=== PATIENT | female | born 1930 | race Caucasian/White ===

== ENCOUNTER 2016-11-30 13:09 | Emergency (ER) | payer OTHER, MEDICARE ==
[2016-11-30 13:26] VITALS: BMI 21.1
--- NOTE | 2016-11-30 13:33 | PDOC ---
Attending Attestation - Resident Resident Name: Asia Mariee - ED Attending Attestation I have performed the following: I have examined & evaluated the patient, The case was reviewed & discussed with the resident, I agree w/resident's findings & plan, Exceptions are as noted - HPI HPI: 11/30/16 13:30 Fell and hit head 11/30/16 13:32 - Physicial Exam PE: 11/30/16 13:31 Mechanical fall, hit head 11/30/16 13:32 11/30/16 13:32 VSS/ A/Ox3, No Lac - Medical Decision Making 11/30/16 13:[address] Mariee's Assessment and Plan
[2016-11-30 14:50] LABS: BASOPHIL 0.6 % (0-2.0); EOSINOPHIL 1.4 % (0-4.5); MCH 29.7 pg (25.7-33.7); MCHC 33.2 g/dl (32.0-36.0); MEAN CELL VOLUME 89.4 fl (80-96); MEAN PLT VOLUME 9.7 fl (7.5-11.1); NEUTROPHILS 81.8 % (42.8-82.8); PLATELET COUNT 264 K/MM3 (134-434); RDW 14.1 % (11.6-15.6); WHITE BLOOD COUNT 10.8 K/mm3 (4.0-10.0)
[2016-11-30 15:05] LABS: ALBUMIN 3.4 g/dl (3.4-5.0); ALK PHOS 78 U/L (45-117); ANION GAP 8 (8-16); BILIRUBIN,TOTAL 0.8 mg/dL (0.2-1.0); CALCIUM 8.9 mg/dL (8.5-10.1); CO2 28 mmol/L (21-32); CREATININE 0.6 mg/dL (0.55-1.02); GLUCOSE,RANDOM 76 mg/dL (74-106); SGOT/AST 15 U/L (15-37); SGPT/ALT 17 U/L (12-78)
--- NOTE | 2016-11-30 15:08 | PDOC ---
History of Present Illness - General Chief Complaint: Head/Neck problem Stated Complaint: INJURY TO HEAD Time Seen by Provider: 11/30/16 13:17 History Source: Patient Exam Limitations: No Limitations - History of Present Illness Initial Comments: 86yo F with PMH htn, arthritis presents s/p fall. Pt lives in [facility] where she tripped on her clothing rack at 11am, fell and hit her head on the floor. - LOC. Pt does not take any blood thinning medications. Pt also c/o pain to her Right wrist and archie hips. Pt denies fever , palpitations, SOB. 11/30/16 14:47 Aspirin Received prior to arrival: Yes: no aspirin today Past History - Past Medical History Allergies/Adverse Reactions: Allergies Allergy/AdvReac Type Severity Reaction Status Date / Time Sulfa (Sulfonamide Allergy Verified 11/30/16 13:38 Antibiotics) Home Medications: Ambulatory Orders Acetaminophen [Mapap] 500 mg PO DAILY PRN 11/30/16 Duloxetine HCl [Cymbalta] 60 mg PO HS 11/30/16 Fluticasone/Salmeterol [Advair Hfa 230-21 Mcg Inhaler] 1 inh PO DAILY 11/30/16 Levothyroxine [Synthroid -] 150 mcg PO DAILY 11/30/16 Lisinopril 5 mg PO DAILY 11/30/16 Mirabegron [Myrbetriq] 50 mg PO DAILY 11/30/16 Mirtazapine 7.5 mg PO HS 11/30/16 Montelukast Na [Singulair -] 10 mg PO HS 11/30/16 Nystatin Ointment [Mycostatin Ointment -] 1 applic TP Q6H 11/30/16 Asthma: Yes Disorders: Yes (overactive bladder) HTN: Yes Psychiatric Problems: Yes (depression) Thyroid Disease: Yes - Surgical History Lung Surgery: Yes (partial lung lobectomy) Orthopedic Surgery: Yes (archie hip replacements) Other Surgical History: thyroidectomy, L4/5 spine surgery, carpal tunnel surgery 11/30/16 15:11 - Psycho/Social/Smoking Cessation Hx Suicidal Ideation: No Smoking History: Never smoked Information on smoking cessation initiated: No Hx Alcohol Use: No Drug/Substance Use Hx: No Substance Use Type: None Review of Systems - Review of Systems Able to Perform ROS?: Yes Is the patient limited Arabic proficient: No Constitutional: No: Chills, Diaphoresis, Fever HEENTM: No: Recent change in vision, Ear Pain, Nose Pain, Throat Pain Respiratory: No: Cough, Shortness of Breath, Stridor, Wheezing, Hemoptysis Cardiac (ROS): No: Chest Pain, Edema, Irregular Heart Rate, Lightheadedness, Palpitations, Syncope, Chest Tightness ABD/GI: Yes: Nausea (pt reports this may be becuase she hasn't eaten breakfast or lunch yet today). No: Abdominal Distended, Constipated, Diarrhea, Rectal Bleeding, Vomiting, Abdominal cramping : No: Burning, Dysuria, Hematuria Musculoskeletal: Yes: Joint Pain (archie hips and Right wrist pain onset after fall ). No: Back Pain, Muscle Pain, Neck Pain Integumentary: No: Erythema, Lesions, Rash Neurological: No: Headache, Weakness, Dizziness *Physical Exam - Vital Signs Last Vital Signs Temp Pulse Resp BP Pulse Ox 98 F 65 18 156/73 98 11/30/16 13:23 11/30/16 13:23 11/30/16 13:23 11/30/16 13:23 11/30/16 13:39 - Physical Exam General Appearance: Yes: Nourished, Appropriately Dressed. No: Apparent Distress HEENT: positive: EOMI, Normal Voice, Other (moist mucous membranes). negative: Pale Conjunctivae, Scleral Icterus (R), Scleral Icterus (L) Neck: positive: Trachea midline, Supple Respiratory/Chest: positive: Lungs Clear, Normal Breath Sounds. negative: Respiratory Distress, Accessory Muscle Use Cardiovascular: positive: Regular Rhythm, Regular Rate, S1, S2. negative: Murmur Gastrointestinal/Abdominal: positive: Soft. negative: Distended, Guarding, Rebound, Tenderness Extremity: negative: Swelling, Calf Tenderness, Erythema Integumentary: positive: Dry, Warm. negative: Rash Neurologic: positive: Alert, Normal Mood/Affect, Normal Response ED Treatment Course - LABORATORY CBC & Chemistry Diagram: 11/30/16 14:02 11/30/16 14:02 - RADIOLOGY Radiology Studies Ordered: Category Date Time Status HEAD CT WITHOUT CONTRAST [CT] Stat CT Scan 11/30/16 13:52 Ordered HIP-LEFT [RAD] Stat Radiology 11/30/16 13:52 Completed HIP-RIGHT [RAD] Stat Radiology 11/30/16 13:52 Completed WRIST W/HAND-RIGHT* [RAD] Stat Radiology 11/30/16 13:52 Completed Medical Decision Making - Medical Decision Making 86yo F with PMH htn, arthritis presents s/p fall. Pt lives in [facility] where she tripped on her clothing rack at 11am, fell and hit her head on the floor. -LOC Pt not taking any blood thinning medications. Pt also c/o pain to her Right wrist and archie hips. EKG - reveals RBBB, Left axis deviation, sinus rhythm with premature atrial complexes archie Hip XRays - reveal s/p archie hip replacements in satisfactory alignment without gross evidence of fx. Right Wrist XRay - reveals significant osteopenia with sig osteoarthritic changes to distal IPJs of 2nd-5th fingers & 1st carpo-metacarpal joint. Head CT non-contrast - reveals no acute intracranial hemorrhage or skull fx. CBC with diff and CMP unremarkable 11/30/16 15:29 11/30/16 15:38 Pt can go home. *DC/Admit/Observation/Transfer Diagnosis at time of Disposition: Fall - Discharge Dispostion Disposition: HOME Condition at time of disposition: Stable Admit: No - Patient Instructions Printed Discharge Instructions: How to Prevent Falls
--- NOTE | 2016-11-30 15:32 | EKG ---
Test Reason : Blood Pressure : / mmHG Vent. Rate : 067 BPM Atrial Rate : 067 BPM P-R Int : 152 ms QRS Dur : 122 ms QT Int : 432 ms P-R-T Axes : 038 -31 017 degrees QTc Int : 456 ms SINUS RHYTHM WITH PREMATURE ATRIAL COMPLEXES LEFT AXIS DEVIATION RIGHT BUNDLE BRANCH BLOCK ABNORMAL ECG NO PREVIOUS ECGS AVAILABLE Confirmed by MARIANO GREGORY MD ([id number]) on 11/30/2016 3:32:14 PM Referred By: Confirmed By:MARIANO GREGORY MD
[2016-11-30 17:44] VITALS: BP 139/89; PULSE 89; TEMP 98.1
== END 2016-11-30 17:45 | disposition home or self-care (01) ==
LOC: JER 13:09
DX: S09.8XXA Other specified injuries of head, initial encounter (principal); W01.198A Fall on same level from slipping, tripping and stumbling with subsequent striking against other object, initial encounter; Y93.89 Activity, other specified; Y92.092 Bedroom in other non-institutional residence as the place of occurrence of the external cause
CPT/HCPCS: 36415; 70450-TC; 73110-TC-RT; 73130-TC-RT; 73502-TC-LT; 73502-TC-RT; 80053; 85025; 93005; 93010; 99284-25

== ENCOUNTER 2017-04-30 01:40 | Inpatient (IN) | payer OTHER, MEDICARE ==
--- NOTE | 2017-04-30 02:13 | PDOC ---
History of Present Illness - General Chief Complaint: Injury Stated Complaint: PAIN, FALL 2 DAYS AGO Time Seen by Provider: 04/30/17 02:13 Past History - Past Medical History Allergies/Adverse Reactions: Allergies Allergy/AdvReac Type Severity Reaction Status Date / Time Sulfa (Sulfonamide Allergy Verified 04/30/17 02:02 Antibiotics) Home Medications: Ambulatory Orders Acetaminophen [Mapap] 500 mg PO DAILY PRN 11/30/16 Duloxetine HCl [Cymbalta] 60 mg PO HS 11/30/16 Fluticasone/Salmeterol [Advair Hfa 230-21 Mcg Inhaler] 1 inh PO DAILY 11/30/16 Levothyroxine [Synthroid -] 150 mcg PO DAILY 11/30/16 Lisinopril 5 mg PO DAILY 11/30/16 Mirabegron [Myrbetriq] 50 mg PO DAILY 11/30/16 Mirtazapine 7.5 mg PO HS 11/30/16 Montelukast Na [Singulair -] 10 mg PO HS 11/30/16 Nystatin Ointment [Mycostatin Ointment -] 1 applic TP Q6H 11/30/16 Asthma: Yes Disorders: Yes (overactive bladder) HTN: Yes Psychiatric Problems: Yes (depression) Thyroid Disease: Yes - Surgical History Lung Surgery: Yes (partial lung lobectomy) Orthopedic Surgery: Yes (archie hip replacements) - Suicide/Smoking/Psychosocial Hx Smoking History: Never smoked Have you smoked in the past 12 months: No Information on smoking cessation initiated: No Hx Alcohol Use: No Drug/Substance Use Hx: No Substance Use Type: None *Physical Exam - Vital Signs Last Vital Signs Temp Pulse Resp BP Pulse Ox 97.9 F 88 20 168/90 88 L 04/30/17 02:02 04/30/17 02:02 04/30/17 02:02 04/30/17 02:02 04/30/17 02:02 ED Treatment Course - LABORATORY CBC & Chemistry Diagram: 04/30/17 02:53 04/30/17 05:40 Medical Decision Making - Medical Decision Making 04/30/17 04:23 Pt comes with fever. WBC is 18.5; she is febrile; pulsox is low. Pt may have a pneumonia. Flu test negative. 04/30/17 04:25 Troponis normal; chem is hemolyzed, We will redraw. 04/30/17 04:52 Patient Name: SHANNON JC THIS IS A PRELIMINARY REPORT FROM [facility] DATE OF SERVICE: 2017-04-30 03:27:47 IMAGES: 104 EXAM: CHEST CT WITHOUT CONTRAST HISTORY: Pneumonia COMPARISON: None. FINDINGS: Heart:: Normal Pericardium: not thickened Thoracic aorta and great vessels: Normal Superior vena cava and inferior vena cava: Normal Pulmonary arteries: Normal Thoracic esophagus: Normal Mediastinal lymph nodes: Normal Central airways: Normal Lungs: There is some focal airspace consolidation in the lower lobes bilaterally right greater than left. There is some focal subpleural consolidation in the right upper lobe adjacent to a thoracotomy rib defect. This density measures 1.4 x 2.8 x 2.6 cm Pleural spaces: Normal with no pneumothorax or pleural fluid Chest wall: Normal Superior abdomen: Normal IMPRESSION: Air space opacity in the right lower lobe suggests aspiration or pneumonia. Subpleural nodular density adjacent to a thoracotomy defect may reflect scarring , or residual/recurrent neoplasm in the right upper lobe. Correlation with history and comparison with previous studies is recommended *DC/Admit/Observation/Transfer Diagnosis at time of Disposition: Aspiration pneumonia - Discharge Dispostion Condition at time of disposition: Guarded Admit: Yes - Referrals - Patient Instructions - Post Discharge Activity Attending Attestation - Resident Resident Name: Tatiana Tripp - ED Attending Attestation I have performed the following: I have examined & evaluated the patient, The case was reviewed & discussed with the resident, I agree w/resident's findings & plan - HPI HPI: 04/30/17 05:02 Pt comes with fever and wet productive cough and low pulsox. - Physicial Exam PE: 04/30/17 05:02 Agree with resident exam - Medical Decision Making 04/30/17 05:02 Admit to the hospitalist med/surg flood for aspiration pneumonia and hypoxemia, cough and dizziness
[2017-04-30] MEDS ORDERED: LACTATED RINGERS SOLUTION 1000 ML INFUS.BAG IV ONE (02:21)
[2017-04-30 03:32] LABS: VENOUS PH 7.34 (7.32-7.42)
[2017-04-30 03:33] LABS: BASO % 0.4 % (0-2.0); EOS % 0.1 % (0-4.5); HEMATOCRIT 39.7 % (32.4-45.2); HEMOGLOBIN 12.9 GM/dL (10.7-15.3); MCHC 32.6 g/dl (32.0-36.0); MEAN CELL VOLUME 88.9 fl (80-96); MEAN PLT VOLUME 9.1 fl (7.5-11.1); MONO % 5.8 % (3.8-10.2); NEUT % 89.7 % (42.8-82.8); PLATELET COUNT 258 K/MM3 (134-434); RBC 4.46 M/mm3 (3.60-5.2); RDW 13.7 % (11.6-15.6); VENOUS PC02 46.9 mmHg (38-52); WHITE BLOOD COUNT 18.5 K/mm3 (4.0-10.0)
[2017-04-30 04:01] LABS: INR 1.04 (0.82-1.09); PROTHROMBIN TIME (PATIENT) 11.7 SEC (9.98-11.88)
[2017-04-30 04:04] LABS: ACTIVATED PTT 33.2 SECONDS (26.9-34.4)
[2017-04-30] MEDS ORDERED: PIPERACILLIN/TAZOB 3.375 GM 50 ML IVPB ONE (04:53)
[2017-04-30] MEDS ORDERED: PIPERACILLIN/TAZOB 3.375 GM 3.375 GM/50 ML BAG IVPB ONE (04:57)
[2017-04-30 05:28] LABS: URINE APPEARANCE CLEAR; URINE BILIRUBIN NEGATIVE (NEGATIVE); URINE BLOOD NEGATIVE (NEGATIVE); URINE COLOR YELLOW; URINE GLUCOSE (UA) NEGATIVE (NEGATIVE); URINE KETONE NEGATIVE (NEGATIVE); URINE LEUK ESTERASE NEGATIVE (NEGATIVE); URINE NITRITE NEGATIVE (NEGATIVE); URINE PROTEIN NEGATIVE (NEGATIVE); URINE UROBILINOGEN NEGATIVE mg/dL (0.2-1.0)
[2017-04-30 06:19] LABS: ALBUMIN 2.9 g/dl (3.4-5.0); ALK PHOS 110 U/L (45-117); ANION GAP 8 (8-16); BLOOD UREA NITROGEN 16 mg/dL (7-18); CHLORIDE 101 mmol/L (98-107); CO2 27 mmol/L (21-32); CREATININE 0.8 mg/dL (0.55-1.02); GLUCOSE,RANDOM 120 mg/dL (74-106); POTASSIUM 4.1 mmol/L (3.5-5.1); SGOT/AST 37 U/L (15-37); SGPT/ALT 23 U/L (12-78); SODIUM 136 mmol/L (136-145); TOT PROT 6.5 g/dl (6.4-8.2)
--- NOTE | 2017-04-30 08:17 | HP ---
CHIEF COMPLAINT: "Im sick and coughing" PCP: Dr Little HISTORY OF PRESENT ILLNESS: This is an 87 yo F [facility] resident, with PMH of COPD, R lung resection, HTN, archie hip replacements, hypothyroidism, depression, overactive bladder, who resents due to worsening cough. Patient states she has many sick contacts and as a result developed cough 2 weeks ago, productive of green sputum, that was initially preceded by rhinorrhea. Her cough has not improved despite a course of PO abx. She denies associated f/c, sob or sore thorat but reports fatigue. She states that NH lost her dentures and becca ones she is wearing now are not made for chewing; as a result she has not been able to eat solid food for 2 months and has lost 20 lb. She states that she fell on her R leg/hip 2 days ago , which still hurts, and has not tried walking since. She reports one episode on PNA in her youth but none since. She denies CP, h/a, abd pain, n/v, diarrhea , constipation, dysuria. 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 smoker Alcohol: denies Drugs: denies Family History: noncontributory Allergies Sulfa (Sulfonamide Antibiotics) Allergy (Verified 04/30/17 02:02) Penicillin HOME MEDICATIONS: Home Medications Medication Instructions Recorded Acetaminophen 500 mg PO PRN 04/30/17 Duloxetine HCl [Cymbalta] 60 mg PO DAILY 04/30/17 Fluticasone/Salmeterol [Advair Hfa 1 inh PO BID 04/30/17 230-21 Mcg Inhaler] Hypromellose 0.5% Opth Soln 1 drop OU DAILY 04/30/17 [Artificial Tears] Levothyroxine [Synthroid -] 150 mcg PO DAILY 04/30/17 Lisinopril 5 mg PO DAILY 04/30/17 Mirabegron [Myrbetriq] 50 mg PO DAILY 04/30/17 Mirtazapine [Remeron -] 7.5 mg PO DAILY 04/30/17 Montelukast Sodium [Singulair] 10 mg PO DAILY 04/30/17 Nystatin Cream [Mycostatin Cream -] 1 applic TP PRN 04/30/17 REVIEW OF SYSTEMS CONSTITUTIONAL: Absent: fever, chills, loss of appetite HEENT: Absent: rhinorrhea, nasal congestion CARDIOVASCULAR: Absent: chest pain, syncope, palpitations, irregular heart rate, lightheadedness , peripheral edema RESPIRATORY: Absent: shortness of breath, orthopnea, stridor, hemoptysis GASTROINTESTINAL: Absent: abdominal pain, abdominal distension, nausea, vomiting, diarrhea, constipation, melena, hematochezia GENITOURINARY: Absent: dysuria MUSCULOSKELETAL: Absent: myalgia, joint swelling, back pain, neck pain SKIN: Absent: rash, itching, pallor HEMATOLOGIC/IMMUNOLOGIC: Absent: frequent infections ENDOCRINE: Absent: heat intolerance, cold intolerance NEUROLOGIC: Absent: headache, focal weakness or paresthesias PSYCHIATRIC: Absent: anxiety, depression PHYSICAL EXAMINATION Vital Signs - 24 hr 04/30/17 04/30/17 04/30/17 02:02 06:52 07:04 Temperature 97.9 F 99.0 F Pulse Rate 88 Pulse Rate [ 95 H 80 Right Apical] Respiratory 20 16 18 Rate Blood Pressure 168/90 Blood Pressure 165/68 163/60 [Right Arm] O2 Sat by Pulse 88 L 94 L 99 Oximetry (%) 04/30/17 07:09 Temperature Pulse Rate Pulse Rate [ Right Apical] Respiratory Rate Blood Pressure Blood Pressure [Right Arm] O2 Sat by Pulse 98 Oximetry (%) GENERAL: Awake, alert, and fully oriented, in no acute distress. HEAD: Normal with no signs of trauma. EYES: Pupils equal, round and reactive to light, extraocular movements intact, sclera anicteric, conjunctiva clear. No lid lag. EARS, NOSE, THROAT: dry mucous membranes. NECK: supple LUNGS: diffuse ronchi, wet cough HEART: Regular rate and rhythm, normal S1 and S2 ABDOMEN: thin, Soft, nontender, not distended, normoactive bowel sounds, no guarding, no rebound, no masses. MUSCULOSKELETAL: No CVA tenderness. UPPER EXTREMITIES: 2+ pulses, warm, well-perfused. No cyanosis. No clubbing. No peripheral edema. LOWER EXTREMITIES: 1+ pulses, warm, well-perfused. No calf tenderness. 1+ peripheral edema. R lateral thigh pain NEUROLOGICAL: Cranial nerves II-XII grossly intact. Normal speech. PSYCHIATRIC: Cooperative. Good eye contact. Appropriate mood and affect. SKIN: Warm, dry Laboratory Results - last 24 hr 04/30/17 04/30/17 04/30/17 02:53 02:53 02:53 WBC 18.5 H D RBC 4.46 Hgb 12.9 Hct 39.7 MCV 88.9 MCH 29.0 MCHC 32.6 RDW 13.7 Plt Count 258 MPV 9.1 Neutrophils % 89.7 H Lymphocytes % 4.0 L D Monocytes % 5.8 Eosinophils % 0.1 D Basophils % 0.4 PT with INR 11.70 INR 1.04 PTT (Actin FS) 33.2 VBG pH POC VBG pCO2 POC VBG pO2 Mixed VBG HCO3 Sodium Cancelled Potassium Cancelled Chloride Cancelled Carbon Dioxide Cancelled Anion Gap Cancelled BUN Cancelled Creatinine Cancelled Creat Clearance w eGFR Cancelled Random Glucose Cancelled Lactic Acid Calcium Cancelled Total Bilirubin Cancelled AST Cancelled ALT Cancelled Alkaline Phosphatase Cancelled Creatine Kinase Cancelled Troponin I Cancelled Total Protein Cancelled Albumin Cancelled Urine Color Urine Appearance Urine pH Ur Specific [place] Urine Protein Urine Glucose (UA) Urine Ketones Urine Blood Urine Nitrite Urine Bilirubin Urine Urobilinogen Ur Leukocyte Esterase Blood Type Antibody Screen 04/30/17 04/30/17 04/30/17 02:53 02:53 02:53 WBC RBC Hgb Hct MCV MCH MCHC RDW Plt Count MPV Neutrophils % Lymphocytes % Monocytes % Eosinophils % Basophils % PT with INR INR PTT (Actin FS) VBG pH 7.34 POC VBG pCO2 46.9 POC VBG pO2 34.0 Mixed VBG HCO3 24.5 Sodium Potassium Chloride Carbon Dioxide Anion Gap BUN Creatinine Creat Clearance w eGFR Random Glucose Lactic Acid 1.4 Calcium Total Bilirubin AST ALT Alkaline Phosphatase Creatine Kinase 91 Troponin I < 0.02 Total Protein Albumin Urine Color Urine Appearance Urine pH Ur Specific [place] Urine Protein Urine Glucose (UA) Urine Ketones Urine Blood Urine Nitrite Urine Bilirubin Urine Urobilinogen Ur Leukocyte Esterase Blood Type Antibody Screen 04/30/17 04/30/17 04/30/17 02:53 05:00 05:40 WBC RBC Hgb Hct MCV MCH MCHC RDW Plt Count MPV Neutrophils % Lymphocytes % Monocytes % Eosinophils % Basophils % PT with INR INR PTT (Actin FS) VBG pH POC VBG pCO2 POC VBG pO2 Mixed VBG HCO3 Sodium 136 Potassium 4.1 Chloride 101 Carbon Dioxide 27 Anion Gap 8 BUN 16 Creatinine 0.8 Creat Clearance w eGFR > 60 Random Glucose 120 H Lactic Acid Calcium 8.0 L Total Bilirubin 1.0 D AST 37 ALT 23 Alkaline Phosphatase 110 Creatine Kinase Troponin I Total Protein 6.5 Albumin 2.9 L Urine Color Yellow Urine Appearance Clear Urine pH 5.0 Ur Specific [place] 1.018 Urine Protein Negative Urine Glucose (UA) Negative Urine Ketones Negative Urine Blood Negative Urine Nitrite Negative Urine Bilirubin Negative Urine Urobilinogen Negative Ur Leukocyte Esterase Negative Blood Type Cancelled Antibody Screen Cancelled ASSESSMENT/PLAN: This is an 87 yo F [place] resident, with PMH of COPD, R lung resection, HTN, archie hip replacements, hypothyroidism, depression, overactive bladder, who resents due to worsening cough. COPD Exacerbation -possible underlying HCAP (RLL infiltate on Chest CT, R upper lobe peripleural scarring s/p resection) -flu negative -rocephin, azithormycin daily -medrol 40 iv bid -symbicort, spiriva, dupnebs -incentive spirometer -PT s/p Fall -thigh pain -R hip, femur, knee x ray HTN -resume lisinopril Hypothyroidism -resume synthroid depression -resume remeron, cymbalta Overactive bladder -resume mirabegron Weight loss -unable to chew -speech/swallow eval -puree diet FEN PO hydration lytes stable na restricted puree diet with nutritional supplement Dispo: admit m/s Problem List - Problem (1) COPD exacerbation Code(s): J44.1 - CHRONIC OBSTRUCTIVE PULMONARY DISEASE W (ACUTE) EXACERBATION (2) HTN (hypertension) Code(s): I10 - ESSENTIAL (PRIMARY) HYPERTENSION (3) Hypothyroid Code(s): E03.9 - HYPOTHYROIDISM, UNSPECIFIED (4) Overactive bladder Code(s): N32.81 - OVERACTIVE BLADDER (5) Depression Code(s): F32.9 - MAJOR DEPRESSIVE DISORDER, SINGLE EPISODE, UNSPECIFIED (6) Fall Code(s): W19.XXXA - UNSPECIFIED FALL, INITIAL ENCOUNTER (7) Weight loss Code(s): R63.4 - ABNORMAL WEIGHT LOSS Visit type - Emergency Visit Emergency Visit: Yes ED Registration Date: 02/05/18 Care time: The patient presented to the Emergency Department on the above date and was hospitalized for further evaluation of their emergent condition. - New Patient This patient is new to me today: Yes Date on this admission: 04/30/17 - Critical Care Critical Care patient: No
[2017-04-30] MEDS ORDERED: ARTIFICIAL TEARS (POLYVINYL ALCOHOL 1.4%) OPTH DROPS OU PRN (09:51)
[2017-04-30] MEDS ORDERED: MIRTAZAPINE 15 MG TABLET (FP) PO SCH (10:00)
[2017-04-30] MEDS ORDERED: ACETAMINOPHEN 500 MG TABLET (FP) PO SCH (10:00)
[2017-04-30] MEDS ORDERED: NYSTATIN 100,000 UNIT/GM TOPICAL CREAM 15 GM TUBE TP SCH (10:00)
[2017-04-30] MEDS: CEFTRIAXONE 1 G/50 ML PREMIX 50 ML IVPB SCH (11:58)
[2017-04-30] MEDS: DULoxetine HCL 30 MG CAPSULE.DR (FP) PO SCH (11:58)
[2017-04-30] MEDS: OXYBUTYNIN CHLORIDE 5 MG TABLET PO SCH ×2 (11:59→21:44)
[2017-04-30] MEDS: LEVOTHYROXINE NA 150 MCG TABLET PO SCH (11:59)
[2017-04-30] MEDS: methylPREDNISolone NA SUCC 40 MG/1 ML VIAL IVPUSH SCH ×2 (11:59→21:45)
[2017-04-30] MEDS: LISINOPRIL 5 MG TABLET (FP) PO SCH (11:59)
[2017-04-30] MEDS: HEPARIN NA (PORCINE) 5,000 UNITS/ML 1ML VIAL SQ SCH ×2 (11:59→21:44)
[2017-04-30] MEDS ORDERED: cefTRIAXone 1 GM/50 ML BAG (PRE-DOCKED) IVPB SCH (12:00)
[2017-04-30] MEDS: BUDESONIDE/FORMETEROL FUMARATE 160/4.5 mcg INHALER IH SCH ×2 (12:24→21:45)
[2017-04-30] MEDS: TIOTROPIUM BROMIDE 18 MCG/INH (DEVICE W/ 5 CAPSULES) IH SCH (12:24)
--- NOTE | 2017-04-30 12:42 | EKG ---
Test Reason : Blood Pressure : / mmHG Vent. Rate : 106 BPM Atrial Rate : 106 BPM P-R Int : 132 ms QRS Dur : 120 ms QT Int : 356 ms P-R-T Axes : 053 -54 042 degrees QTc Int : 472 ms SINUS TACHYCARDIA POSSIBLE LEFT ATRIAL ENLARGEMENT RIGHT BUNDLE BRANCH BLOCK LEFT ANTERIOR FASCICULAR BLOCK BIFASCICULAR BLOCK ABNORMAL ECG WHEN COMPARED WITH ECG OF 30-NOV-2016 13:42, PREMATURE ATRIAL COMPLEXES ARE NO LONGER PRESENT VENT. RATE HAS INCREASED BY 39 BPM Confirmed by GUILLERMINA RO, NELLI ([id number]) on 04/30/2017 12:42:30 PM Referred By: Confirmed By:NELLI SARMIENTO MD
[2017-04-30] MEDS ORDERED: ACETAMINOPHEN 500 MG TABLET (FP) PO PRN (12:44)
[2017-04-30] MEDS ORDERED: NYSTATIN 100,000 UNIT/GM TOPICAL CREAM 15 GM TUBE TP PRN ×2 (12:45→15:28)
--- NOTE | 2017-04-30 12:53 | PN ---
Teaching Attending Note Name of Resident: Kajal Gannon ATTENDING PHYSICIAN STATEMENT I saw and evaluated the patient. I reviewed the resident's note and discussed the case with the resident. I agree with the resident's findings and plan as documented. SUBJECTIVE: This is an 87 year old woman, resident of [facility], with a history of COPD, HTN, hypothyroidism, depression, overactive bladder, bilateral hip replacements, right lung surgery who comes to the ED complaining of worsening cough. She has had a cough with green sputum for about 2 weeks. She was treated with oral antibiotics without improvement. She denies fever, chills, SOB. She has been feeling tired. She has not been able to eat solid food because of a problem with her dentures and has lost 20 lbs over the last 2 months. OBJECTIVE: Vital Signs Period Temp Pulse Resp BP Sys/Richardson Pulse Ox Last 24 Hr 97.9 F-100.7 F 80-98 16-20 160-168/60-90 88-99 HEART: S1S2, RRR LUNGS: Scattered rhonchi and wheezes ABDOMEN: Soft, non-tender, non-distended, normal BS EXTREMITIES: Trace edema Laboratory Tests 04/30/17 04/30/17 04/30/17 02:53 02:53 02:53 WBC 18.5 H D RBC 4.46 Hgb 12.9 Hct 39.7 MCV 88.9 MCH 29.0 MCHC 32.6 RDW 13.7 Plt Count 258 MPV 9.1 Neutrophils % 89.7 H Lymphocytes % 4.0 L D Monocytes % 5.8 Eosinophils % 0.1 D Basophils % 0.4 PT with INR 11.70 INR 1.04 PTT (Actin FS) 33.2 VBG pH POC VBG pCO2 POC VBG pO2 Mixed VBG HCO3 Sodium Cancelled Potassium Cancelled Chloride Cancelled Carbon Dioxide Cancelled Anion Gap Cancelled BUN Cancelled Creatinine Cancelled Creat Clearance w eGFR Cancelled Random Glucose Cancelled Lactic Acid Calcium Cancelled Total Bilirubin Cancelled AST Cancelled ALT Cancelled Alkaline Phosphatase Cancelled Creatine Kinase Cancelled Troponin I Cancelled Total Protein Cancelled Albumin Cancelled Urine Color Urine Appearance Urine pH Ur Specific [place] Urine Protein Urine Glucose (UA) Urine Ketones Urine Blood Urine Nitrite Urine Bilirubin Urine Urobilinogen Ur Leukocyte Esterase Blood Type Antibody Screen 04/30/17 04/30/17 04/30/17 02:53 02:53 02:53 WBC RBC Hgb Hct MCV MCH MCHC RDW Plt Count MPV Neutrophils % Lymphocytes % Monocytes % Eosinophils % Basophils % PT with INR INR PTT (Actin FS) VBG pH 7.34 POC VBG pCO2 46.9 POC VBG pO2 34.0 Mixed VBG HCO3 24.5 Sodium Potassium Chloride Carbon Dioxide Anion Gap BUN Creatinine Creat Clearance w eGFR Random Glucose Lactic Acid 1.4 Calcium Total Bilirubin AST ALT Alkaline Phosphatase Creatine Kinase 91 Troponin I < 0.02 Total Protein Albumin Urine Color Urine Appearance Urine pH Ur Specific [place] Urine Protein Urine Glucose (UA) Urine Ketones Urine Blood Urine Nitrite Urine Bilirubin Urine Urobilinogen Ur Leukocyte Esterase Blood Type Antibody Screen 04/30/17 04/30/17 04/30/17 02:53 05:00 05:40 WBC RBC Hgb Hct MCV MCH MCHC RDW Plt Count MPV Neutrophils % Lymphocytes % Monocytes % Eosinophils % Basophils % PT with INR INR PTT (Actin FS) VBG pH POC VBG pCO2 POC VBG pO2 Mixed VBG HCO3 Sodium 136 Potassium 4.1 Chloride 101 Carbon Dioxide 27 Anion Gap 8 BUN 16 Creatinine 0.8 Creat Clearance w eGFR > 60 Random Glucose 120 H Lactic Acid Calcium 8.0 L Total Bilirubin 1.0 D AST 37 ALT 23 Alkaline Phosphatase 110 Creatine Kinase Troponin I Total Protein 6.5 Albumin 2.9 L Urine Color Yellow Urine Appearance Clear Urine pH 5.0 Ur Specific [place] 1.018 Urine Protein Negative Urine Glucose (UA) Negative Urine Ketones Negative Urine Blood Negative Urine Nitrite Negative Urine Bilirubin Negative Urine Urobilinogen Negative Ur Leukocyte Esterase Negative Blood Type Cancelled Antibody Screen Cancelled Home Medications Medication Instructions Recorded Acetaminophen 500 mg PO PRN 04/30/17 Duloxetine HCl [Cymbalta] 60 mg PO DAILY 04/30/17 Fluticasone/Salmeterol [Advair Hfa 1 inh PO BID 04/30/17 230-21 Mcg Inhaler] Hypromellose 0.5% Opth Soln 1 drop OU DAILY 04/30/17 [Artificial Tears] Levothyroxine [Synthroid -] 150 mcg PO DAILY 04/30/17 Lisinopril 5 mg PO DAILY 04/30/17 Mirabegron [Myrbetriq] 50 mg PO DAILY 04/30/17 Mirtazapine [Remeron -] 7.5 mg PO DAILY 04/30/17 Montelukast Sodium [Singulair] 10 mg PO DAILY 04/30/17 Nystatin Cream [Mycostatin Cream -] 1 applic TP PRN 04/30/17 ASSESSMENT AND PLAN: This is an 87 year old woman with a history of COPD, HTN, hypothyroidism, depression, overactive bladder, bilateral hip replacements, right lung surgery who presented to the ED with cough productive of green sputum x 2 weeks. She did not improve after a course of oral antibiotics. She was found to have WBC 18.5 and O2 saturation 88% on RA. CXR showed RUL and RLL opacity, possibly pneumonia, possibly neoplasm. Chest CT shows focal wedge-shaped airspace disease /consolidation in RUL adjacent to old rib fracture vs thoracotomy defect. 1. Possible sepsis (WBC 18.5, HR 95) secondary to pneumonia - Failed oral antibiotics as outpatient - Start Rocephin, Zithromax - Given history of right lung surgery, CT findings, and recent weight loss, neoplasm needs to be ruled out - Pulmonary consult 2. Acute exacerbation of COPD - Start SoluMedrol, DuoNeb - Continue Singulair, Symbicort - Oxygen to maintain saturation > 90% 3. HTN - Continue Lisinopril 4. Hypothyroidsim - Continue Synthroid 5. Depression - Continue Remeron, Cymbalta 6. Overactive bladder - Continue Myrbetriq
[2017-04-30] MEDS: AZITHROMYCIN IVPB 500 MG in DEXTROSE 5%-WATER - 250 ML IVPB SCH (13:04)
--- NOTE | 2017-04-30 13:17 | CONSULT ---
Admitting History and Physical - Primary Care Physician PCP: Adolfo Reed - Admission History of Present Illness: Per emr: This is an 87 yo F [facility] resident, with PMH of COPD, R lung resection, HTN, archie hip replacements, hypothyroidism, depression, overactive bladder, who resents due to worsening cough. Patient states she has many sick contacts and as a result developed cough 2 weeks ago, productive of green sputum, that was initially preceded by rhinorrhea. Her cough has not improved despite a course of PO abx. She denies associated f/c, sob or sore thorat but reports fatigue. She states [facility] and becca ones she is wearing now are not made for chewing; as a result she has not been able to eat solid food for 2 months and has lost 20 lb. She states that she fell on her R leg/hip 2 days ago , which still hurts, and has not tried walking since. She reports one episode on PNA in her youth but none since. She denies CP, h/a, abd pain, n/v, diarrhea , constipation, dysuria. Pt reports weight loss, not eating x 2 weeks. She reports that [facility]. Upper dentures are ill fitting. She has "no appetite", and is "sweating." Selected Entries 04/30/17 04/30/17 04/30/17 02:02 07:04 08:30 Temperature 97.9 F 99.0 F 98.8 F 04/30/17 10:30 Temperature 100.7 F H Laboratory Tests 04/30/17 02:53 WBC 18.5 H D History Source: Patient, Medical Record Limitations to Obtaining History: No Limitations - Smoking History Smoking history: Never smoked Have you smoked in the past 12 months: No - Alcohol/Substance Use Hx Alcohol Use: No History - Admission Reason For Visit: ASPIRATION PNEUMONIA - Diagnostics X-ray: Report Reviewed ( Air space opacity in the right lower lobe suggests aspiration or pneumonia. Subpleural nodular density adjacent to a thoracotomy defect may reflect scarring, or residual/recurrent neoplasm in the right upper lobe. Correlation with history and comparison withprevious studies is recommended) - General Mental Status: Alert and Oriented, Awake and Alert, Able to Follow Commands Attention: Intact Ability to Follow Directions: Excellent Head/Neck Control: WFL - Hearing Hearing: Impaired Speech Evaluation - Communication Primary Language: [place] Communication: Yes: Within Normal Limits Oral Expression Ability: Yes: No Impairment - Speech Production Able to Make Needs Known: Yes: WNL Intelligibility: Yes: Mildly Impaired - Speech Characteristics Voice Loudness: Mildly Soft/Quiet Voice Pitch: Yes: Normal Voice Phonatory-based Quality: Yes: Dysphonia Speech Pattern: Normal Speech Clarity: < 100% Nasal Resonance: Normal Articulation: Yes: Precise - Language/Auditory Comprehension Follows: Yes: 1 Stage Simple Commands, 2 Stage Simple Commands - Language/Verbal Expression Able to Respond to Simple Queries: Yes: WNL Able to Communicate Wants and Needs: Yes: WNL Functional Communication Status: Yes: WNL - Swallow Evaluation/Bedside Assessment Current Nutritional Intake: Dysphagia Pureed, Thin Liquids Dentition: Yes: Edentulous (lower), Dental Appliance Upper (ill-fitting) Facial Symmetry at Rest: Symmetrical Facial Symmetry on Retraction: Symmetrical Facial Movement: Controlled Against Resistance Opening: Normal Against Resistance Closing: Normal Pucker Lips: Normal Smile: Normal Lingual Movement: Normal, Symmetric Lingual Movement Strgth Against Opposition: Normal Lingual Movement Characteristics: Normal Velopharyngeal Movement: Normal Laryngeal Movement: Able to Palpate (delayed but brisk) Rate of Intake: WFL Bolus Size: WFL Labial Seal: WFL Chewing: WFL Oral Prep Time: WFL A-P Transit: WFL Pocketing: None Timing of Swallow: Delayed Coughing/Throat Clear: Yes (thin liquid intermittently "it chokes me") Recommendations - Speech Evaluation, Impression/Plan Impression: Dysphonia. Cough response with thin liquid r/o aspiration. c/o sweating/no appetite - Disposition Discharge to: Group Home Facility - Dysphagia Impressions/Plan Dysphagia Impressions: Mild Impairment, Ongoing Evaluation, Suspect Aspiration *Silent aspiration: cannot be R/O at bedside Recommendations: Modified Barium Swallow - Recommendations Diet Consistency: Dysphagia Pureed Medication Administration: Crushed with applesauce Liquids: [place] Thick Supplement: Magic Cup, Ensure Pudding, Other (ensure compact)
[2017-04-30 16:12] VITALS: BMI 21.6
[2017-04-30] MEDS: ALBUTEROL SO4 2.5/IPRATROPIUM 0.5 INH SOL 3 ML VIAL.NEB. NEB PRN (18:05)
[2017-04-30] MEDS: MIRTAZAPINE 15 MG TABLET (FP) PO SCH (21:44)
[2017-05-01] MEDS: LEVOTHYROXINE NA 150 MCG TABLET PO SCH (06:18)
[2017-05-01 08:19] LABS: BASO % 0.1 % (0-2.0); HEMOGLOBIN 12.1 GM/dL (10.7-15.3); LYMPH % 4.3 % (8-40); MCH 28.5 pg (25.7-33.7); MCHC 31.9 g/dl (32.0-36.0); MEAN CELL VOLUME 89.4 fl (80-96); MEAN PLT VOLUME 8.9 fl (7.5-11.1); MONO % 1.6 % (3.8-10.2); PLATELET COUNT 243 K/MM3 (134-434); RBC 4.25 M/mm3 (3.60-5.2); WHITE BLOOD COUNT 12.8 K/mm3 (4.0-10.0)
[2017-05-01 08:32] LABS: ANION GAP 7 (8-16); BLOOD UREA NITROGEN 17 mg/dL (7-18); CALCIUM 8.1 mg/dL (8.5-10.1); CHLORIDE 101 mmol/L (98-107); CO2 29 mmol/L (21-32); CREATININE 0.7 mg/dL (0.55-1.02); GLUCOSE,RANDOM 128 mg/dL (74-106); PHOSPHOROUS 3.9 mg/dL (2.5-4.9); POTASSIUM 3.9 mmol/L (3.5-5.1); SODIUM 137 mmol/L (136-145)
[2017-05-01] MEDS: ALBUTEROL SO4 2.5/IPRATROPIUM 0.5 INH SOL 3 ML VIAL.NEB. NEB PRN (09:29)
[2017-05-01] MEDS ORDERED: PT OWN MED DRAWER 7, Y5N ONE ×2 (09:35→10:57)
[2017-05-01] MEDS: methylPREDNISolone NA SUCC 40 MG/1 ML VIAL IVPUSH SCH (11:34)
[2017-05-01] MEDS: CEFTRIAXONE 1 G/50 ML PREMIX 50 ML IVPB SCH (11:34)
[2017-05-01] MEDS: HEPARIN NA (PORCINE) 5,000 UNITS/ML 1ML VIAL SQ SCH ×2 (11:35→21:43)
[2017-05-01] MEDS: DULoxetine HCL 30 MG CAPSULE.DR (FP) PO SCH (11:37)
[2017-05-01] MEDS: LISINOPRIL 5 MG TABLET (FP) PO SCH (11:37)
[2017-05-01] MEDS: OXYBUTYNIN CHLORIDE 5 MG TABLET PO SCH ×2 (11:37→21:43)
[2017-05-01] MEDS: AZITHROMYCIN IVPB 500 MG in DEXTROSE 5%-WATER - 250 ML IVPB SCH (11:48)
[2017-05-01] MEDS: BUDESONIDE/FORMETEROL FUMARATE 160/4.5 mcg INHALER IH SCH ×2 (11:48→21:43)
[2017-05-01] MEDS: TIOTROPIUM BROMIDE 18 MCG/INH (DEVICE W/ 5 CAPSULES) IH SCH (11:49)
--- NOTE | 2017-05-01 11:50 | CON.PULM ---
Consult Consult Specialty:: PULMONARY Referred by:: Dr. Bhardwaj Reason for Consultation:: pneumonia, COPD - History of Present Illness Chief Complaint: cough History of Present Illness: 87yo female with h/o HTN, COPD, hypothyroidism, overactive bladder, depression, lung ca s/p resection 7 years ago without chemo/RT who presents with worsening cough. Cough productive of green sputum. Reports generalized weakness and some increased shortness of breath. Was started on oral antibiotics as an outpt without significant improvement. No nausea, vomiting or diarrhea. She was a heavy smoker until her lung cancer. - History Source History Provided By: Patient, Medical Record Limitations to Obtaining History: Poor Historian - Past Medical History Cardio/Vascular: Yes: HTN Pulmonary: Yes: Cancer, COPD Endocrine: Yes: Hypothyroidism - Alcohol/Substance Use Hx Alcohol Use: No - Smoking History Smoking history: Never smoked Have you smoked in the past 12 months: No If you are a former smoker, when did you quit?: 5 yrs ago Home Medications - Allergies Allergies/Adverse Reactions: Allergies Allergy/AdvReac Type Severity Reaction Status Date / Time Sulfa (Sulfonamide Allergy Verified 04/30/17 02:02 Antibiotics) Penicillins AdvReac Verified 04/30/17 09:56 - Home Medications Home Medications: Ambulatory Orders Acetaminophen 500 mg PO PRN 04/30/17 Duloxetine HCl [Cymbalta] 60 mg PO DAILY 04/30/17 Fluticasone/Salmeterol [Advair Hfa 230-21 Mcg Inhaler] 1 inh PO BID 04/30/17 Hypromellose 0.5% Opth Soln [Artificial Tears] 1 drop OU DAILY 04/30/17 Levothyroxine [Synthroid -] 150 mcg PO DAILY 04/30/17 Lisinopril 5 mg PO DAILY 04/30/17 Mirabegron [Myrbetriq] 50 mg PO DAILY 04/30/17 Mirtazapine [Remeron -] 7.5 mg PO DAILY 04/30/17 Montelukast Sodium [Singulair] 10 mg PO DAILY 04/30/17 Nystatin Cream [Mycostatin Cream -] 1 applic TP PRN 04/30/17 Review of Systems - Review of Systems Constitutional: reports: Chills, Fever, Weakness Eyes: denies: Recent Change in Vision HENT: denies: Nasal Congestion, Throat Pain Neck: denies: Stiffness, Tenderness Cardiovascular: reports: Shortness of Breath. denies: Chest Pain, Edema, Palpitations Respiratory: reports: Cough. denies: Hemoptysis, Wheezing Gastrointestinal: denies: Abdominal Pain, Diarrhea, Nausea, Vomiting Genitourinary: denies: Dysuria, Hematuria Neurological: denies: Dizziness, Headache Endocrine: denies: Unexplained Weight Gain, Unexplained Weight Loss Physical Exam Vital Sings: Vital Signs Temperature 97.3 F L 05/01/17 07:00 Pulse Rate 97 H 05/01/17 07:00 Respiratory Rate 20 05/01/17 07:00 Blood Pressure 150/74 05/01/17 07:00 O2 Sat by Pulse Oximetry (%) 95 04/30/17 21:00 Constitutional: Yes: Anxious Eyes: Yes: Conjunctiva Clear, EOM Intact HENT: Yes: Other (dry mucous membranes) Neck: Yes: Supple, Trachea Midline Cardiovascular: Yes: Regular Rate and Rhythm Respiratory: Yes: Rhonchi, Wheezes ...Clubbing: No Gastrointestinal: Yes: Normal Bowel Sounds, Soft. No: Tenderness Edema: No Neurological: Yes: Confusion Labs: CBC, BMP 05/01/17 06:45 05/01/17 06:45 Imaging - Results Chest X-ray: Report Reviewed, Image Reviewed Cat Scan: Report Reviewed, Image Reviewed (RUL focal opacity, bibasilar infiltrates) Problem List - Problems (1) Pneumonia Code(s): J18.9 - PNEUMONIA, UNSPECIFIED ORGANISM (2) COPD exacerbation Code(s): J44.1 - CHRONIC OBSTRUCTIVE PULMONARY DISEASE W (ACUTE) EXACERBATION (3) HTN (hypertension) Code(s): I10 - ESSENTIAL (PRIMARY) HYPERTENSION (4) Hypothyroid Code(s): E03.9 - HYPOTHYROIDISM, UNSPECIFIED Assessment/Plan Pneumonia Acute COPD Exacerbation Hypothyroidism h/o Lung Ca s/p resection - IV antibiotics - f/u cultures - IV medrol - inhaled bronchodilators - O2 to keep SpO2 >90% - will need close outpt f/u of RUL opacity in 4-6 weeks, if unchanged will need PET and possible biopsy - DVT prophylaxis Thank you for this consult Vin Laws MD
[2017-05-01] MEDS ORDERED: ALBUTEROL SO4 0.083% IH SOL 2.5 MG/3 ML VIAL.NEB. NEB PRN (11:55)
[2017-05-01] MEDS ORDERED: SODIUM CHLORIDE 1,000 ML IV SCH (12:30)
--- NOTE | 2017-05-01 14:24 | PN ---
Physical Exam: SUBJECTIVE: Patient seen and examined. Offers no new complaints. Says shes still coughing with green sputum production. Says the cough has been going on for 2 weeks and has been around sick contacts. Denies chest pain, headache, dizziness, nausea, vomiting, OBJECTIVE: Vital Signs Period Temp Pulse Resp BP Sys/Richardson Pulse Ox Last 24 Hr 97.3 F-99.9 F 86-97 18-20 125-154/68-76 95-95 GENERAL: A/o x 3, confused at baseline, bitemporal wasting HEAD: Normal with no signs of trauma. EYES: PERRL, extraocular movements intact, sclera anicteric, conjunctiva clear. No ptosis. ENT: oropharynx clear without exudates, moist mucous membranes. NECK: Trachea midline, full range of motion, supple. LUNGS: course breath sounds b/l, right sided crackles, no wheezing HEART: Regular rate and rhythm, S1, S2 without murmur, rub or gallop. ABDOMEN: Soft, nontender, nondistended, normoactive bowel sounds, no guarding, no rebound, no hepatosplenomegaly, no masses. EXTREMITIES: 2+ pulses, warm, well-perfused, no edema, no R hip tenderness SKIN: Warm, dry, normal turgor, no rashes or lesions noted Laboratory Results - last 24 hr 05/01/17 05/01/17 06:45 06:45 WBC 12.8 H D RBC 4.25 Hgb 12.1 Hct 38.0 MCV 89.4 MCH 28.5 MCHC 31.9 L RDW 14.0 Plt Count 243 MPV 8.9 Neutrophils % 94.0 H Lymphocytes % 4.3 L Monocytes % 1.6 L Eosinophils % 0.0 D Basophils % 0.1 Sodium 137 Potassium 3.9 Chloride 101 Carbon Dioxide 29 Anion Gap 7 L BUN 17 Creatinine 0.7 Random Glucose 128 H Calcium 8.1 L Phosphorus 3.9 Magnesium 2.0 Active Medications Generic Name Dose Route Start Last Admin Trade Name Freq PRN Reason Stop Dose Admin Acetaminophen 500 mg 04/30/17 12:44 Tylenol - PO Q4H PRN FEVER Albuterol Sulfate 1 amp 05/01/17 11:55 Ventolin 0.083% Nebulizer Soln - NEB Q4H PRN SHORT OF BREATH/WHEEZING Albuterol/Ipratropium 1 amp 05/01/17 16:00 Duoneb - NEB RQID YNES Artificial Tears 1 drop 04/30/17 09:51 Artificial Tears OU QID PRN DRY EYES Budesonide/Formoterol Fumarate 1 puff 04/30/17 10:00 05/01/17 11:48 Symbicort 160/4.5mcg - IH 1 puff BID YNES Administration Duloxetine HCl 60 mg 04/30/17 10:00 05/01/17 11:37 Cymbalta - PO 60 mg DAILY YNES Administration Heparin Sodium (Porcine) 5,000 unit 04/30/17 10:00 05/01/17 11:35 Heparin - SQ 5,000 unit BID YNES Administration CEFTRIAXONE 1 G/50 ML PREMIX 50 mls @ 100 mls/hr 04/30/17 10:00 05/01/17 11: 34 Ceftriaxone 1 Gm-D5w Bag IVPB 100 mls/hr DAILY YNES Administration Azithromycin 500 mg/ Dextrose 250 mls @ 250 mls/hr 04/30/17 12:00 05/01/17 11 :48 IVPB 250 mls/hr DAILY@1200 YNES Administration Sodium Chloride 1,000 mls @ 75 mls/hr 05/01/17 12:30 Normal Saline - IV ASDIR YNES Levothyroxine Sodium 150 mcg 04/30/17 11:00 05/01/17 06:18 Synthroid - PO 150 mcg DAILY@0700 YNES Administration Lisinopril 5 mg 04/30/17 10:00 05/01/17 11:37 Prinivil PO 5 mg DAILY YNES Administration Methylprednisolone Sodium Succinate 40 mg 04/30/17 10:00 05/01/17 11:34 Solu-Medrol - IVPUSH 40 mg BID YNES Administration Mirtazapine 7.5 mg 04/30/17 10:21 04/30/17 21:44 Remeron - PO 7.5 mg HS YNES Administration Nystatin 1 applic 04/30/17 15:28 Mycostatin Cream - TP Q4H PRN DRY SKIN Oxybutynin Chloride 5 mg 04/30/17 10:45 05/01/17 11:37 Ditropan - PO 5 mg BID YNES Administration ASSESSMENT/PLAN: This is an 87 year old F with a history of COPD, HTN, hypothyroidism, depression , overactive bladder, bilateral hip replacements, right lung surgery who presented to the ED with cough productive of green sputum x 2 weeks. She was found to have WBC 18.5 and O2 saturation 88% on RA. CXR showed RUL and RLL opacity, possibly pneumonia, possibly neoplasm. #RUL Pneumonia - WBC 12.8 (18.5 on admission) -CXR showed RUL and RLL opacity, possibly pneumonia -Chest CT: Focal wedge-shaped airspace disease/consolidation in the right upper lobe, laterally adjacent to an old rib fracture versus a thoracotomy defect. -Failed outpatient Abx: 7 day course of Azithromycin and Clindamycin -IV Antibiotics: Ceftriaxone, Azithromycin (Day 2) -Pulmonary Consulted: Dr. Eden -Urine Cx: lactose fermenting gram neg bacilli -FU urine legionella antigens -Bcx with no growth after 24 hours #Acute COPD exacerbation -Solumedrol 40mg BID, will taper -Cont Symbicort -Cont. Spiriva -Cont. Duonebs -02 therapy as needed -spO2 >90% #HTN -resume lisinopril 5mg daily #Right Hip pain -s/p mechanical fall -no fractures on xray -PT #Malnutrition -BMI 21 -20 pound weight loss -Nutrition consult: Dysphagia Pureed recommended -Barium swallow unremarkable #Hypothyroidism -resume synthroid 150mcg #Depression -resume remeron 7.5mg BID, -cymbalta 60mg #Overactive bladder -resume mirabegron #FEN -No IV fluids -WNL -Dysphagia Pureed diet #DVT -Hep SQ TID Visit type - Emergency Visit Emergency Visit: Yes ED Registration Date: 04/30/17 Care time: The patient presented to the Emergency Department on the above date and was hospitalized for further evaluation of their emergent condition. - New Patient This patient is new to me today: Yes Date on this admission: 05/01/17 - Critical Care Critical Care patient: No - Discharge Referral Referred to [facility] Med [facility] No
[2017-05-01] MEDS: ALBUTEROL SO4 2.5/IPRATROPIUM 0.5 INH SOL 3 ML VIAL.NEB. NEB SCH ×2 (16:12→19:42)
--- NOTE | 2017-05-01 17:34 | PN ---
Teaching Attending Note Name of Resident: Lynda Dominguez ATTENDING PHYSICIAN STATEMENT I saw and evaluated the patient. I reviewed the resident's note and discussed the case with the resident. I agree with the resident's findings and plan as documented. SUBJECTIVE: + nonproductive cough. not related to eating. admits to feeling hot all the time, even when other people state the room is cold. states pain in hip has resolved. denies Cp, SOB, fever, chills, N/V/C/d OBJECTIVE: Last Vital Signs Temp Pulse Resp BP Pulse Ox 98.9 F 79 22 148/75 95 05/01/17 14:49 05/01/17 14:49 05/01/17 14:49 05/01/17 14:49 05/01/17 09:00 General NAD bitemporal wasting, prominent clavicles CV S1 s2 RRR no murmur/rub/gallop Lungs crackles R base, diffuse rhonchi, decreased breath sounds L base ABdomen soft NT/ND Extremities no point tenderness along R hip. able to flex ASSESSMENT AND PLAN: 87yo F wtih PMH COPD, HTN, B/L hip replacement, hypothyroid and suspected R lung ca s/p resection presented to the Er after productive cough of green sputum [id number] and mechanical fall 1. RUL PNA-failed outpatient therapy. was started on IVF. will d/c a this time due to crackles. On ceftriaxone and Azithromycin day 2. saturating 95% on 2L NC. will need to call pharmacy to determine abx course at home. pulmonary consulted. will need repeat CT in 4-6 weeks 2. Acute COPD exacerbation- started on medrol 40mg BID will likely benefit from quick taper. cont nebs, symbicort. supplemental spO2 >90% 3. R hip pain- s/p mechanical fall. imaging negative for acute fx/subluxation. PT evaluation 4. Malnutrition- evident by body habitus and 20 lb weight loss. swallow eval. nutrition consult 5. HTN- above goal. re-start home meds. titrate up as tolerated 6. Hypothyroid- states she had thyroidectomy. concern due to symptoms. check TSH. cont LT4 7. possible R lung ca s/p resection- states she believes she had cancer because she was a heavy smoker but does not know if she really did. did not have chemo or rtx. will need to confirm with records 8. DVT ppx- hep sq
[2017-05-01] MEDS: MIRTAZAPINE 15 MG TABLET (FP) PO SCH (21:43)
[2017-05-01] MEDS ORDERED: methylPREDNISolone NA SUCC 40 MG/1 ML VIAL IVPUSH ONE (23:15)
[2017-05-02] MEDS: LEVOTHYROXINE NA 150 MCG TABLET PO SCH (06:15)
[2017-05-02 07:39] LABS: HEMATOCRIT 33.3 % (32.4-45.2); HEMOGLOBIN 10.9 GM/dL (10.7-15.3); MCH 28.8 pg (25.7-33.7); MCHC 32.8 g/dl (32.0-36.0); MEAN CELL VOLUME 87.9 fl (80-96); MEAN PLT VOLUME 9.3 fl (7.5-11.1); PLATELET COUNT 258 K/MM3 (134-434); RBC 3.79 M/mm3 (3.60-5.2); RDW 13.9 % (11.6-15.6); WHITE BLOOD COUNT 13.5 K/mm3 (4.0-10.0)
[2017-05-02] MEDS: ALBUTEROL SO4 2.5/IPRATROPIUM 0.5 INH SOL 3 ML VIAL.NEB. NEB SCH ×4 (07:44→21:06)
[2017-05-02 08:06] LABS: ANION GAP 8 (8-16); BLOOD UREA NITROGEN 25 mg/dL (7-18); CHLORIDE 102 mmol/L (98-107); CO2 26 mmol/L (21-32); GLUCOSE,RANDOM 120 mg/dL (74-106); POTASSIUM 4.2 mmol/L (3.5-5.1); SODIUM 136 mmol/L (136-145)
[2017-05-02 08:17] LABS: CREATININE 0.6 mg/dL (0.55-1.02)
[2017-05-02] MEDS ORDERED: PT OWN MED DRAWER 7, Y5N ONE (10:38)
[2017-05-02] MEDS: DULoxetine HCL 30 MG CAPSULE.DR (FP) PO SCH (10:46)
[2017-05-02] MEDS: LISINOPRIL 5 MG TABLET (FP) PO SCH (10:52)
[2017-05-02] MEDS: HEPARIN NA (PORCINE) 5,000 UNITS/ML 1ML VIAL SQ SCH ×2 (10:52→21:41)
[2017-05-02] MEDS: OXYBUTYNIN CHLORIDE 5 MG TABLET PO SCH ×2 (10:52→21:41)
[2017-05-02] MEDS: BUDESONIDE/FORMETEROL FUMARATE 160/4.5 mcg INHALER IH SCH ×2 (10:53→21:41)
[2017-05-02] MEDS: CEFTRIAXONE 1 G/50 ML PREMIX 50 ML IVPB SCH (10:53)
--- NOTE | 2017-05-02 12:01 | PN ---
Teaching Attending Note Name of Resident: Lynda Dominguez ATTENDING PHYSICIAN STATEMENT I saw and evaluated the patient. I reviewed the resident's note and discussed the case with the resident. I agree with the resident's findings and plan as documented. SUBJECTIVE:conitnues to have non productive cough, states voice is hoarse and intermittently looses voice. tolerating diet without difficulty. deneis CP, fever, chills, N/V/C/D OBJECTIVE: Last Vital Signs Temp Pulse Resp BP Pulse Ox 98.8 F 89 19 148/75 95 05/02/17 08:37 05/02/17 08:37 05/02/17 09:00 05/02/17 08:37 05/02/17 09:00 General NAD bitemporal wasting, prominent clavicles HEENT erythemetous pharynx, + white exudates, CV S1 s2 RRR no murmur/rub/gallop Lungs crackles R base, diffuse rhonchi, decreased breath sounds L base, mild crackles ABdomen soft NT/ND ASSESSMENT AND PLAN: 87yo F wtih PMH COPD, HTN, B/L hip replacement, hypothyroid and suspected R lung ca s/p resection presented to the Er after productive cough of green sputum [id number] and mechanical fall 1. RUL PNA-failed outpatient therapy. will check rapid strep as exudate was seen. as per pharmacy pt took clindamycin x1week and zpack. will d/c azithromycin. cont Ceftriaxone day3. pulmonary consulted. will need repeat CT in 4-6 weeks. f/u Cx 2. Acute COPD exacerbation-decrease medrol to 40mg daily. will likely benefit from quick taper. cont nebs, symbicort. supplemental spO2 >90% 3. R hip pain- s/p mechanical fall. imaging negative for acute fx/subluxation. PT evaluation 4. Malnutrition- evident by body habitus and 20 lb weight loss. swallow eval. nutrition consult 5. HTN- improved. cont acei for now. titrate up as tolerated 6. Hypothyroid- states she had thyroidectomy. TSH 0.01. will call PMD to see what her goal is as she may have had cancer and want her TSH to be supressed. cont LT4 for now. 7. possible R lung ca s/p resection- states she believes she had cancer because she was a heavy smoker but does not know if she really did. did not have chemo or rtx. will need to confirm with records 8. DVT ppx- hep sq 9. pt is agreeable to DANELLE placement if needed.
--- NOTE | 2017-05-02 12:03 | PN ---
Progress Note, FACULTY I ON CALL MEDICAL ASSISTANT - Note Progress Note: MBS reviewed with staff and pt. No aspiration identified. Ill fitting dentures. Pt on chopped and thin liquid. ensure Enlive. Selected Entries 05/02/17 05/02/17 05/02/17 01:13 02:00 06:00 Breakfast Supper 50% Temperature 98.7 F 98.1 F 05/02/17 05/02/17 08:37 10:10 Breakfast 75% Supper Temperature 98.8 F Laboratory Tests 04/30/17 05/01/17 05/02/17 02:53 06:45 07:20 WBC 18.5 H D 12.8 H D 13.5 H Monitor PO intake. Please request family bring adhesive for her dentures.
--- NOTE | 2017-05-02 13:46 | PN ---
Progress Note, Physician History of Present Illness: PULMONARY ALERT,FEELING BETTER,STILL CONGESTED,+ COUGH - Current Medication List Current Medications: Active Medications Acetaminophen (Tylenol -) 500 mg PO Q4H PRN PRN Reason: FEVER Albuterol Sulfate (Ventolin 0.083% Nebulizer Soln -) 1 amp NEB Q4H PRN PRN Reason: SHORT OF BREATH/WHEEZING Albuterol/Ipratropium (Duoneb -) 1 amp NEB RQID [facility] Last Admin: 05/02/17 11:02 Dose: 1 amp Artificial Tears (Artificial Tears) 1 drop OU QID PRN PRN Reason: DRY EYES Budesonide/Formoterol Fumarate (Symbicort 160/4.5mcg -) 1 puff IH BID [facility] Last Admin: 05/02/17 10:53 Dose: 1 puff Duloxetine HCl (Cymbalta -) 60 mg PO DAILY [facility] Last Admin: 05/02/17 10:46 Dose: 60 mg Heparin Sodium (Porcine) (Heparin -) 5,000 unit SQ BID [facility] Last Admin: 05/02/17 10:52 Dose: 5,000 unit CEFTRIAXONE 1 G/50 ML PREMIX (Ceftriaxone 1 Gm-D5w Bag) 50 mls @ 100 mls/hr IVPB DAILY [facility] Last Admin: 05/02/17 10:53 Dose: 100 mls/hr Levothyroxine Sodium (Synthroid -) 150 mcg PO DAILY@0700 [facility] Last Admin: 05/02/17 06:15 Dose: 150 mcg Lisinopril (Prinivil) 5 mg PO DAILY [facility] Last Admin: 05/02/17 10:52 Dose: 5 mg Mirtazapine (Remeron -) 7.5 mg PO HS [facility] Last Admin: 05/01/17 21:43 Dose: 7.5 mg Nystatin (Mycostatin Cream -) 1 applic TP Q4H PRN PRN Reason: DRY SKIN Oxybutynin Chloride (Ditropan -) 5 mg PO BID [facility] Last Admin: 05/02/17 10:52 Dose: 5 mg - Objective Vital Signs: Vital Signs Temperature 98.8 F 05/02/17 08:37 Pulse Rate 89 05/02/17 08:37 Respiratory Rate 19 05/02/17 09:00 Blood Pressure 148/75 05/02/17 08:37 O2 Sat by Pulse Oximetry (%) 95 05/02/17 09:00 Constitutional: Yes: Well Nourished, Calm Eyes: Yes: WNL HENT: Yes: WNL Neck: Yes: WNL Cardiovascular: Yes: Regular Rate and Rhythm, S1, S2 Respiratory: Yes: Rhonchi (SCATTERED MONICA RHONCHI) Gastrointestinal: Yes: Normal Bowel Sounds, Soft Extremities: Yes: WNL Edema: No Labs: CBC, BMP 05/02/17 07:20 05/02/17 07:20 INR, PTT INR 1.04 (0.82-1.09) 04/30/17 02:53 Assessment/Plan Problem List - Problems (1) Pneumonia Code(s): J18.9 - PNEUMONIA, UNSPECIFIED ORGANISM (2) COPD exacerbation Code(s): J44.1 - CHRONIC OBSTRUCTIVE PULMONARY DISEASE W (ACUTE) EXACERBATION (3) HTN (hypertension) Code(s): I10 - ESSENTIAL (PRIMARY) HYPERTENSION (4) Hypothyroid Code(s): E03.9 - HYPOTHYROIDISM, UNSPECIFIED Assessment/Plan Pneumonia Acute COPD Exacerbation Hypothyroidism h/o Lung Ca s/p resection - IV antibiotics - IV medrol - inhaled bronchodilators - O2 to keep SpO2 >90% - will need close outpt f/u of RUL opacity in 4-6 weeks, if unchanged will need PET and possible biopsy - DVT prophylaxis DR CHIN
[2017-05-02] MEDS: methylPREDNISolone NA SUCC 40 MG/1 ML VIAL IVPUSH SCH ×2 (15:35→19:37)
--- NOTE | 2017-05-02 16:28 | PN ---
Physical Exam: SUBJECTIVE: Patient seen and examined. No acute events overnight. Patient says shes still coughing with clear sputum. Says she is breathing better today. Denies SOB, dizziness, fever, chills, dysuria. OBJECTIVE: Vital Signs Period Temp Pulse Resp BP Sys/Richardson Pulse Ox Last 24 Hr 98.0 F-98.8 F 88-101 19-21 131-148/70-80 95-95 GENERAL: A/o x 3, confused at baseline, bitemporal wasting HEAD: Normal with no signs of trauma. EYES: PERRL, extraocular movements intact, sclera anicteric, conjunctiva clear. No ptosis. ENT: oropharynx with white exudates, moist mucous membranes. NECK: Trachea midline, full range of motion, supple. LUNGS: course breath sounds b/l, right sided crackles, no wheezing HEART: Regular rate and rhythm, S1, S2 without murmur, rub or gallop. ABDOMEN: Soft, nontender, nondistended, normoactive bowel sounds, no guarding, no rebound, no hepatosplenomegaly, no masses. EXTREMITIES: 2+ pulses, warm, well-perfused, no edema, no R hip tenderness SKIN: Warm, dry, normal turgor, no rashes or lesions noted Laboratory Results - last 24 hr 05/02/17 05/02/17 07:20 07:20 WBC 13.5 H RBC 3.79 Hgb 10.9 Hct 33.3 MCV 87.9 MCH 28.8 MCHC 32.8 RDW 13.9 Plt Count 258 MPV 9.3 Sodium 136 Potassium 4.2 Chloride 102 Carbon Dioxide 26 Anion Gap 8 BUN 25 H Creatinine 0.6 Random Glucose 120 H Calcium 8.0 L TSH 0.01 L Active Medications Generic Name Dose Route Start Last Admin Trade Name Freq PRN Reason Stop Dose Admin Acetaminophen 500 mg 04/30/17 12:44 Tylenol - PO Q4H PRN FEVER Albuterol Sulfate 1 amp 05/01/17 11:55 Ventolin 0.083% Nebulizer Soln - NEB Q4H PRN SHORT OF BREATH/WHEEZING Albuterol/Ipratropium 1 amp 05/01/17 16:00 05/02/17 11:02 Duoneb - NEB 1 amp RQID YNES Administration Artificial Tears 1 drop 04/30/17 09:51 Artificial Tears OU QID PRN DRY EYES Budesonide/Formoterol Fumarate 1 puff 04/30/17 10:00 05/02/17 10:53 Symbicort 160/4.5mcg - IH 1 puff BID YNES Administration Duloxetine HCl 60 mg 04/30/17 10:00 05/02/17 10:46 Cymbalta - PO 60 mg DAILY YNES Administration Heparin Sodium (Porcine) 5,000 unit 04/30/17 10:00 05/02/17 10:52 Heparin - SQ 5,000 unit BID YNES Administration CEFTRIAXONE 1 G/50 ML PREMIX 50 mls @ 100 mls/hr 04/30/17 10:00 05/02/17 10: 53 Ceftriaxone 1 Gm-D5w Bag IVPB 100 mls/hr DAILY YNES Administration Levothyroxine Sodium 150 mcg 04/30/17 11:00 05/02/17 06:15 Synthroid - PO 150 mcg DAILY@0700 YNES Administration Lisinopril 5 mg 04/30/17 10:00 05/02/17 10:52 Prinivil PO 5 mg DAILY YNES Administration Methylprednisolone Sodium Succinate 40 mg 05/02/17 14:00 Solu-Medrol - IVPUSH Q8H-IV YNES Mirtazapine 7.5 mg 04/30/17 10:21 05/01/17 21:43 Remeron - PO 7.5 mg HS YNES Administration Nystatin 1 applic 04/30/17 15:28 Mycostatin Cream - TP Q4H PRN DRY SKIN Oxybutynin Chloride 5 mg 04/30/17 10:45 05/02/17 10:52 Ditropan - PO 5 mg BID YNES Administration ASSESSMENT/PLAN: This is an 87 year old F with a history of COPD, HTN, hypothyroidism, depression , overactive bladder, bilateral hip replacements, right lung surgery who presented to the ED with cough productive of green sputum x 2 weeks. She was found to have WBC 18.5 and O2 saturation 88% on RA. CXR showed RUL and RLL opacity, possibly pneumonia, possibly neoplasm. #RUL Pneumonia - WBC 13.5 -CXR showed RUL and RLL opacity, possibly pneumonia -Chest CT: Focal wedge-shaped airspace disease/consolidation in the right upper lobe, laterally adjacent to an old rib fracture versus a thoracotomy defect. -Failed outpatient Abx: 7 day course of Azithromycin and Clindamycin -IV Antibiotics: Ceftriaxone, Azithromycin (Day 3) -Rapid strep negative -Pulmonary Consulted: Dr. Eden -Urine Cx: lactose fermenting gram neg bacilli -Urine antigens negative -Bcx with no growth after 24 hours #Acute COPD exacerbation -Solumedrol 40mg TID per ID -Cont Symbicort -Cont. Spiriva -Cont. Duonebs -02 therapy as needed -spO2 >90% #HTN -resume lisinopril 5mg daily #Right Hip pain -s/p mechanical fall -no fractures on xray -PT: 35 steps, requires minimal assistance of 2 #Malnutrition -BMI 21 -20 pound weight loss -Nutrition consult: Dysphagia Pureed recommended -Barium swallow unremarkable #Hypothyroidism -resume synthroid 150mcg #Depression -resume remeron 7.5mg BID, -cymbalta 60mg #Overactive bladder -resume mirabegron #FEN -No IV fluids -WNL -Dysphagia Pureed diet #DVT -Hep SQ TID Visit type - Emergency Visit Emergency Visit: Yes ED Registration Date: 04/30/17 Care time: The patient presented to the Emergency Department on the above date and was hospitalized for further evaluation of their emergent condition. - New Patient This patient is new to me today: No - Critical Care Critical Care patient: No
[2017-05-02] MEDS: MIRTAZAPINE 15 MG TABLET (FP) PO SCH (21:41)
[2017-05-03] MEDS ORDERED: LISINOPRIL 5 MG TABLET (FP) PO ONE (01:39)
[2017-05-03] MEDS: methylPREDNISolone NA SUCC 40 MG/1 ML VIAL IVPUSH SCH ×3 (01:49→17:06)
[2017-05-03] MEDS: LEVOTHYROXINE NA 150 MCG TABLET PO SCH (06:13)
[2017-05-03] MEDS: LISINOPRIL 5 MG TABLET (FP) PO SCH (06:55)
[2017-05-03] MEDS: ALBUTEROL SO4 2.5/IPRATROPIUM 0.5 INH SOL 3 ML VIAL.NEB. NEB SCH ×4 (07:23→21:03)
[2017-05-03 07:36] LABS: HEMATOCRIT 35.5 % (32.4-45.2); HEMOGLOBIN 11.7 GM/dL (10.7-15.3); MCH 29.1 pg (25.7-33.7); MCHC 32.9 g/dl (32.0-36.0); MEAN CELL VOLUME 88.3 fl (80-96); MEAN PLT VOLUME 8.9 fl (7.5-11.1); PLATELET COUNT 275 K/MM3 (134-434); RBC 4.02 M/mm3 (3.60-5.2); WHITE BLOOD COUNT 8.3 K/mm3 (4.0-10.0)
[2017-05-03 08:46] LABS: CHLORIDE 102 mmol/L (98-107); POTASSIUM 4.4 mmol/L (3.5-5.1); SODIUM 137 mmol/L (136-145)
[2017-05-03 08:57] LABS: ANION GAP 10 (8-16); BLOOD UREA NITROGEN 25 mg/dL (7-18); CALCIUM 7.9 mg/dL (8.5-10.1); CO2 25 mmol/L (21-32); CREATININE 0.6 mg/dL (0.55-1.02); GLUCOSE,RANDOM 130 mg/dL (74-106)
[2017-05-03] MEDS ORDERED: PT OWN MED DRAWER 7, Y5N ONE (09:09)
[2017-05-03] MEDS: BUDESONIDE/FORMETEROL FUMARATE 160/4.5 mcg INHALER IH SCH ×2 (09:19→21:14)
[2017-05-03] MEDS: DULoxetine HCL 30 MG CAPSULE.DR (FP) PO SCH (09:24)
[2017-05-03] MEDS: OXYBUTYNIN CHLORIDE 5 MG TABLET PO SCH ×2 (09:24→21:15)
[2017-05-03] MEDS: LISINOPRIL 10 MG TABLET (FP) PO SCH (09:24)
[2017-05-03] MEDS: CEFTRIAXONE 1 G/50 ML PREMIX 50 ML IVPB SCH (09:25)
[2017-05-03] MEDS: HEPARIN NA (PORCINE) 5,000 UNITS/ML 1ML VIAL SQ SCH ×2 (09:25→21:14)
--- NOTE | 2017-05-03 12:25 | PN ---
Progress Note (short form) - Note Progress Note: PULMONARY States her breathing is starting to improve. +nonproductive cough. No fevers or chills. Last Vital Signs Temp Pulse Resp BP Pulse Ox 98.4 F 93 H 18 138/84 94 L 05/03/17 10:00 05/03/17 12:13 05/03/17 12:13 05/03/17 12:13 05/03/17 08:52 Gen: less confused Heart: RRR Lung: scattered rhonchi, wheezes Abd: soft, nontender Ext: no edema CBC, BMP 05/03/17 06:20 05/03/17 06:20 Active Medications Acetaminophen (Tylenol -) 500 mg PO Q4H PRN PRN Reason: FEVER Albuterol Sulfate (Ventolin 0.083% Nebulizer Soln -) 1 amp NEB Q4H PRN PRN Reason: SHORT OF BREATH/WHEEZING Albuterol/Ipratropium (Duoneb -) 1 amp NEB RQID [facility] Last Admin: 05/03/17 11:00 Dose: Not Given Artificial Tears (Artificial Tears) 1 drop OU QID PRN PRN Reason: DRY EYES Budesonide/Formoterol Fumarate (Symbicort 160/4.5mcg -) 1 puff IH BID [facility] Last Admin: 05/03/17 09:19 Dose: 1 puff Duloxetine HCl (Cymbalta -) 60 mg PO DAILY [facility] Last Admin: 05/03/17 09:24 Dose: 60 mg Heparin Sodium (Porcine) (Heparin -) 5,000 unit SQ BID [facility] Last Admin: 05/03/17 09:25 Dose: 5,000 unit CEFTRIAXONE 1 G/50 ML PREMIX (Ceftriaxone 1 Gm-D5w Bag) 50 mls @ 100 mls/hr IVPB DAILY [facility] Last Admin: 05/03/17 09:25 Dose: 100 mls/hr Levothyroxine Sodium (Synthroid -) 150 mcg PO DAILY@0700 [facility] Last Admin: 05/03/17 06:13 Dose: 150 mcg Lisinopril (Prinivil) 10 mg PO DAILY [facility] Last Admin: 05/03/17 09:24 Dose: 10 mg Methylprednisolone Sodium Succinate (Solu-Medrol -) 40 mg IVPUSH Q8H-IV [facility] Last Admin: 05/03/17 09:20 Dose: 40 mg Mirtazapine (Remeron -) 7.5 mg PO HS [facility] Last Admin: 05/02/17 21:41 Dose: 7.5 mg Nystatin (Mycostatin Cream -) 1 applic TP Q4H PRN PRN Reason: DRY SKIN Oxybutynin Chloride (Ditropan -) 5 mg PO BID [facility] Last Admin: 05/03/17 09:24 Dose: 5 mg A/P Pneumonia Acute COPD Exacerbation Hypothyroidism h/o Lung Ca s/p resection - continue antibiotics - continue medrol at current dose, if continues to improve can change to PO prednisone 60mg daily and taper as outpt - inhaled bronchodilators - O2 to keep SpO2 >90% - will need close outpt f/u of RUL opacity in 4-6 weeks, if unchanged will need PET and possible biopsy - DVT prophylaxis Problem List - Problems (1) Pneumonia Code(s): J18.9 - PNEUMONIA, UNSPECIFIED ORGANISM (2) COPD exacerbation Code(s): J44.1 - CHRONIC OBSTRUCTIVE PULMONARY DISEASE W (ACUTE) EXACERBATION (3) HTN (hypertension) Code(s): I10 - ESSENTIAL (PRIMARY) HYPERTENSION (4) Hypothyroid Code(s): E03.9 - HYPOTHYROIDISM, UNSPECIFIED
[2017-05-03] MEDS ORDERED: BENZOCAINE/MENTH/CETYLPYRD CL 1 EACH LOZENGE MM PRN (13:42)
--- NOTE | 2017-05-03 15:24 | PN ---
Progress Note, [facility] SPECIALIST - Note Progress Note: Selected Entries 05/02/17 05/02/17 05/02/17 01:13 02:00 06:00 Breakfast Supper 50% Temperature 98.7 F 98.1 F 05/02/17 05/02/17 08:37 10:10 Breakfast 75% Supper Temperature 98.8 F Laboratory Tests 04/30/17 05/01/17 05/02/17 02:53 06:45 07:20 WBC 18.5 H D 12.8 H D 13.5 H Selected Entries 05/02/17 05/02/17 05/02/17 01:13 02:00 06:00 Breakfast Lunch Supper 50% Temperature 98.7 F 98.1 F 05/02/17 05/02/17 05/02/17 08:37 10:10 14:36 Breakfast 75% Lunch 75% Supper Temperature 98.8 F 98.3 F 05/02/17 05/02/17 05/03/17 18:15 22:00 02:00 Breakfast Lunch Supper 50% Temperature 97.9 F 98.0 F 05/03/17 05/03/17 05/03/17 02:30 06:00 09:00 Breakfast 75% Lunch Supper Temperature 98.7 F 98 F 05/03/17 05/03/17 10:00 14:14 Breakfast Lunch 50% Supper Temperature 98.4 F 98.2 F Laboratory Tests 05/03/17 06:20 WBC 8.3 D Diet was changed to pureed texture as she had difficulty with mastication. Upper dentures drop as she opens her mouth, likely sec weight loss.Monitor PO intake.
[2017-05-03] MEDS ORDERED: amLODIPine BESYLATE 2.5 MG TABLET (FP) PO SCH (15:45)
[2017-05-03] MEDS: NYSTATIN 500,000 UNITS/5 ML SUSPENSION PO SCH (17:06)
--- NOTE | 2017-05-03 17:43 | PN ---
Physical Exam: SUBJECTIVE: Patient seen and examined. Hypertensive throughout the night. Patient says shes still coughing with clear sputum but is becoming more dry. Says she is breathing better today. Denies SOB, dizziness, fever, chills, dysuria. OBJECTIVE: Vital Signs Period Temp Pulse Resp BP Sys/Richardson Pulse Ox Last 24 Hr 97.9 F-98.7 F 83-95 18-22 138-194/80-97 94-95 GENERAL: A/o x 3, confused at baseline, bitemporal wasting HEAD: Normal with no signs of trauma. EYES: PERRL, extraocular movements intact, sclera anicteric, conjunctiva clear. No ptosis. ENT: oropharynx with white exudates, moist mucous membranes. NECK: Trachea midline, full range of motion, supple. LUNGS: course breath sounds b/l, right sided crackles, no wheezing HEART: Regular rate and rhythm, S1, S2 without murmur, rub or gallop. ABDOMEN: Soft, nontender, nondistended, normoactive bowel sounds, no guarding, no rebound, no hepatosplenomegaly, no masses. EXTREMITIES: 2+ pulses, warm, well-perfused, no edema, no R hip tenderness SKIN: Warm, dry, normal turgor, no rashes or lesions noted Laboratory Results - last 24 hr 05/03/17 05/03/17 06:20 06:20 WBC 8.3 D RBC 4.02 Hgb 11.7 Hct 35.5 MCV 88.3 MCH 29.1 MCHC 32.9 RDW 14.0 Plt Count 275 MPV 8.9 Sodium 137 Potassium 4.4 Chloride 102 Carbon Dioxide 25 Anion Gap 10 BUN 25 H Creatinine 0.6 Random Glucose 130 H Calcium 7.9 L Active Medications Generic Name Dose Route Start Last Admin Trade Name Freq PRN Reason Stop Dose Admin Acetaminophen 500 mg 04/30/17 12:44 Tylenol - PO Q4H PRN FEVER Albuterol Sulfate 1 amp 05/01/17 11:55 Ventolin 0.083% Nebulizer Soln - NEB Q4H PRN SHORT OF BREATH/WHEEZING Albuterol/Ipratropium 1 amp 05/01/17 16:00 05/03/17 16:11 Duoneb - NEB Not Given RQID YNES Amlodipine Besylate 2.5 mg 05/03/17 15:45 05/03/17 16:14 Norvasc - PO 2.5 mg DAILY YNES Administration Artificial Tears 1 drop 04/30/17 09:51 Artificial Tears OU QID PRN DRY EYES Benzocaine/Menthol 1 each 05/03/17 13:42 Cepacol Lozenge - MM PRN PRN SORE THROAT Budesonide/Formoterol Fumarate 1 puff 04/30/17 10:00 05/03/17 09:19 Symbicort 160/4.5mcg - IH 1 puff BID YNES Administration Duloxetine HCl 60 mg 04/30/17 10:00 05/03/17 09:24 Cymbalta - PO 60 mg DAILY [facility]NES Administration Heparin Sodium (Porcine) 5,000 unit 04/30/17 10:00 05/03/17 09:25 Heparin - SQ 5,000 unit BID [facility]NES Administration CEFTRIAXONE 1 G/50 ML PREMIX 50 mls @ 100 mls/hr 04/30/17 10:00 05/03/17 09: 25 Ceftriaxone 1 Gm-D5w Bag IVPB 100 mls/hr DAILY [facility] Administration Levothyroxine Sodium 150 mcg 04/30/17 11:00 05/03/17 06:13 Synthroid - PO 150 mcg DAILY@0700 YNES Administration Lisinopril 10 mg 05/03/17 10:00 05/03/17 09:24 Prinivil PO 10 mg DAILY [facility] Administration Methylprednisolone Sodium Succinate 40 mg 05/02/17 14:00 05/03/17 17:06 Solu-Medrol - IVPUSH 40 mg Q8H-IV [facility]NES Administration Mirtazapine 7.5 mg 04/30/17 10:21 05/02/17 21:41 Remeron - PO 7.5 mg HS YNES Administration Nystatin 1 applic 04/30/17 15:28 Mycostatin Cream - TP Q4H PRN DRY SKIN Nystatin 500,000 units 05/03/17 18:00 05/03/17 17:06 Nystatin Oral Suspension - PO 500,000 units Q6HPO YNES Administration Oxybutynin Chloride 5 mg 04/30/17 10:45 05/03/17 09:24 Ditropan - PO 5 mg BID YNES Administration ASSESSMENT/PLAN: This is an 87 year old F with a history of COPD, HTN, hypothyroidism, depression , overactive bladder, bilateral hip replacements, right lung surgery who presented to the ED with cough productive of green sputum x 2 weeks. She was found to have WBC 18.5 and O2 saturation 88% on RA. CXR showed RUL and RLL opacity, possibly pneumonia. #RUL Pneumonia -Leukocytosis resolved -CXR showed RUL and RLL opacity, possibly pneumonia -Chest CT: Focal wedge-shaped airspace disease/consolidation in the right upper lobe, laterally adjacent to an old rib fracture versus a thoracotomy defect. -Failed outpatient Abx: 7 day course of Azithromycin and Clindamycin -IV Antibiotics: Ceftriaxone, Azithromycin (Day 4) -Chest PT -Rapid strep negative -Pulmonary Consulted: Dr. Eden -Urine Cx: Klebsiella PNA -Bcx negative #Acute COPD exacerbation -Solumedrol 40mg TID per ID -Cont Symbicort -Cont. Spiriva -Cont. Duonebs -02 therapy as needed -spO2 >90% #HTN -resume lisinopril 5mg daily -Norvasc 2.5mg PO daily started #Right Hip pain -s/p mechanical fall -no fractures on xray -PT: 60 steps, requires minimal assistance of 2 #Malnutrition -BMI 21 -20 pound weight loss -Nutrition consult: Dysphagia Pureed recommended -Barium swallow unremarkable #Hypothyroidism -resume synthroid 150mcg #Depression -resume remeron 7.5mg BID, -cymbalta 60mg #Overactive bladder -resume mirabegron #FEN -No IV fluids -WNL -Dysphagia Pureed diet #DVT -Hep SQ TID Dispo: Will discharge tomorrow if no events overnight. Will likely be sent to subacute rehab. Visit type - Emergency Visit Emergency Visit: Yes ED Registration Date: 04/30/17 Care time: The patient presented to the Emergency Department on the above date and was hospitalized for further evaluation of their emergent condition. - New Patient This patient is new to me today: No - Critical Care Critical Care patient: No
--- NOTE | 2017-05-03 18:04 | PN ---
Teaching Attending Note Name of Resident: Lynda Dominguez ATTENDING PHYSICIAN STATEMENT I saw and evaluated the patient. I reviewed the resident's note and discussed the case with the resident. I agree with the resident's findings and plan as documented. SUBJECTIVE:continues to have hoarse throat. coughing improved. denies Cp, SOB, fever, chills, N/v/C/D OBJECTIVE: Last Vital Signs Temp Pulse Resp BP Pulse Ox 98.1 F 83 20 155/81 94 L 05/03/17 17:15 05/03/17 17:15 05/03/17 17:15 05/03/17 17:15 05/03/17 08:52 General NAD bitemporal wasting, prominent clavicles HEENT erythematous pharynx, + white exudates, CV S1 s2 RRR no murmur/rub/gallop Lungs crackles R base, diffuse wheezing ABdomen soft NT/ND ASSESSMENT AND PLAN: 87yo F wtih PMH COPD, HTN, B/L hip replacement, hypothyroid and suspected R lung ca s/p resection presented to the Er after productive cough of green sputum [id number] and mechanical fall 1. RUL PNA-failed outpatient therapy. rapid strep negative. offer cepacol lozenges. on Ceftriaxone day 4. pulmonary consulted. will need repeat CT in 4-6 weeks. f/u Cx 2. Acute COPD exacerbation-on medrol 40mg Q8H. possible transition to po in the AM. cont nebs, symbicort. supplemental spO2 >90% 3. R hip pain- s/p mechanical fall. imaging negative for acute fx/subluxation. PT evaluation 4. Malnutrition- evident by body habitus and 20 lb weight loss. tolerating puree diet 5. HTN- above goal. lisinopril was increased this AM. will add norvasc. 6. Hypothyroid- states she had thyroidectomy. TSH 0.01. unable to contact PMD. will consult endocrine on if LT4 should be adjusted. 7. possible R lung ca s/p resection- states she believes she had cancer because she was a heavy smoker but does not know if she really did. did not have chemo or rtx. will need to confirm with records 8. DVT ppx- hep sq 9. possible d/c DANELLE tomorrow.
[2017-05-03] MEDS: MIRTAZAPINE 15 MG TABLET (FP) PO SCH (21:14)
[2017-05-04] MEDS: NYSTATIN 500,000 UNITS/5 ML SUSPENSION PO SCH ×3 (00:33→11:06)
[2017-05-04] MEDS: methylPREDNISolone NA SUCC 40 MG/1 ML VIAL IVPUSH SCH ×2 (01:42→10:48)
[2017-05-04] MEDS: LEVOTHYROXINE NA 150 MCG TABLET PO SCH (06:13)
[2017-05-04] MEDS: ALBUTEROL SO4 2.5/IPRATROPIUM 0.5 INH SOL 3 ML VIAL.NEB. NEB SCH ×3 (07:33→15:55)
[2017-05-04] MEDS ORDERED: amLODIPine BESYLATE 5 MG TABLET (FP) PO SCH (07:34)
--- NOTE | 2017-05-04 09:20 | CONSULT ---
Consult Consult Specialty:: Endocrinology Referred by:: Lore Tiwari Reason for Consultation:: Abnormal TFT - History of Present Illness Chief Complaint: Cough History of Present Illness: This is an 87 yo F [facility] resident, with PMH of COPD, R lung resection, HTN, archie hip replacements, Hypothyroidism, S/P Thyroidectomy 6 to 7 years depression, overactive bladder, who resents due to worsening cough. Patient states she has many sick contacts and as a result developed cough 2 weeks prior to admission. Pt treated with IV abx with improvement in symptoms. Pt found to have abnormal TFT and referred for evaluation. ER course was notable for: - History Source History Provided By: Patient, Medical Record - Past Medical History Cardio/Vascular: Yes: HTN Pulmonary: Yes: Cancer, COPD Endocrine: Yes: Hypothyroidism - Alcohol/Substance Use Hx Alcohol Use: No - Smoking History Smoking history: Never smoked Have you smoked in the past 12 months: No If you are a former smoker, when did you quit?: 5 yrs ago Home Medications - Allergies Allergies/Adverse Reactions: Allergies Allergy/AdvReac Type Severity Reaction Status Date / Time Sulfa (Sulfonamide Allergy Verified 04/30/17 02:02 Antibiotics) Penicillins AdvReac Verified 04/30/17 09:56 - Home Medications Home Medications: Ambulatory Orders Duloxetine HCl [Cymbalta] 60 mg PO DAILY 04/30/17 Hypromellose 0.5% Opth Soln [Artificial Tears] 1 drop OU DAILY 04/30/17 Mirabegron [Myrbetriq] 50 mg PO DAILY 04/30/17 Mirtazapine [Remeron -] 7.5 mg PO DAILY 04/30/17 Montelukast Sodium [Singulair] 10 mg PO DAILY 04/30/17 Nystatin Cream [Mycostatin Cream -] 1 applic TP PRN 04/30/17 Amlodipine Besylate [Norvasc -] 5 mg PO DAILY #30 tablet 05/04/17 Budesonide/Formeterol Fumarate [SYMBICORT 160/4.5mcg -] 1 inh IH BID #1 inhaler 05/04/17 Cephalexin [Keflex] 500 mg PO BID #4 capsule 05/04/17 Levothyroxine Sodium [Synthroid] 137 mcg PO DAILY #7 tablet 05/04/17 Lisinopril 10 mg PO DAILY #30 tablet 05/04/17 Oxybutynin Chloride 5 mg PO BID #60 tablet 05/04/17 Polyvinyl Alcohol [Artificial Tears] 1 drop OU QID PRN drops 05/04/17 Prednisone [Prednisone 50 MG TABLETS] See Taper PO DAILY #10 tablet 05/04/17 Review of Systems - Review of Systems Constitutional: reports: No Symptoms Eyes: reports: No Symptoms HENT: reports: No Symptoms Neck: reports: No Symptoms Cardiovascular: reports: No Symptoms Respiratory: reports: No Symptoms Gastrointestinal: reports: No Symptoms Genitourinary: reports: No Symptoms Musculoskeletal: reports: No Symptoms Neurological: reports: No Symptoms Endocrine: reports: No Symptoms Physical Exam Vital Signs: Vital Signs Temperature 98.4 F 05/04/17 06:00 Pulse Rate 76 05/04/17 06:00 Respiratory Rate 20 05/04/17 06:00 Blood Pressure 182/87 05/04/17 06:00 O2 Sat by Pulse Oximetry (%) 94 L 05/03/17 21:00 Constitutional: Yes: No Distress, Calm Eyes: Yes: Conjunctiva Clear, EOM Intact HENT: Yes: Atraumatic, Normocephalic Neck: Yes: Supple, Trachea Midline Cardiovascular: Yes: Regular Rate and Rhythm Respiratory: Yes: Regular, CTA Bilaterally Gastrointestinal: Yes: Normal Bowel Sounds, Soft Extremities: Yes: WNL Edema: No Neurological: Yes: Alert, Oriented Labs: CBC, BMP 05/03/17 06:20 05/03/17 06:20 Imaging - Results X-ray: Report Reviewed Cat Scan: Report Reviewed Assessment/Plan AP: Pneumonia COPD HTN H/O Lung Ca Hypothyroidis s/p thyroidectomy Pt denies undergoing and scan or f/u with sonograms after the surgery. So surgery was probably not for malignancy of thyroid Rpt TSH 0.01 with FT4 of 1.37 Decrease LT4 to 137 mcg QD and f/u in office for further adjustment in dose.
[2017-05-04] MEDS ORDERED: PT OWN MED DRAWER 7, Y5N ONE ×2 (10:45→11:24)
--- NOTE | 2017-05-04 10:46 | PN ---
Progress Note, PSYCHOLOGICAL OPERATIONS OFFICER - Note Progress Note: Selected Entries 05/03/17 05/03/17 05/03/17 02:00 02:30 06:00 Breakfast Lunch Supper Temperature 98.0 F 98.7 F 98 F 05/03/17 05/03/17 05/03/17 09:00 10:00 14:14 Breakfast 75% Lunch 50% Supper Temperature 98.4 F 98.2 F 05/03/17 05/03/17 05/03/17 17:15 18:20 21:00 Breakfast Lunch Supper 50% Temperature 98.1 F 99.1 F 05/04/17 05/04/17 02:12 06:00 Breakfast Lunch Supper Temperature 98.5 F 98.4 F Laboratory Tests 05/03/17 06:20 Sodium 137 Pt now on puree. Confused, verbal. Pt reports her mouth is "killing" her.She feels her dental implant is infected. Staff made aware. Some thick yellow phlegm visualized on Velum. Nystatin ordered yesterday. Leave dentures out.
[2017-05-04] MEDS: CEFTRIAXONE 1 G/50 ML PREMIX 50 ML IVPB SCH (10:48)
[2017-05-04] MEDS: HEPARIN NA (PORCINE) 5,000 UNITS/ML 1ML VIAL SQ SCH (10:48)
[2017-05-04] MEDS: LISINOPRIL 10 MG TABLET (FP) PO SCH (10:49)
[2017-05-04] MEDS: DULoxetine HCL 30 MG CAPSULE.DR (FP) PO SCH (10:49)
[2017-05-04] MEDS: OXYBUTYNIN CHLORIDE 5 MG TABLET PO SCH (10:49)
[2017-05-04] MEDS: BUDESONIDE/FORMETEROL FUMARATE 160/4.5 mcg INHALER IH SCH (10:50)
--- NOTE | 2017-05-04 12:52 | PN ---
Teaching Attending Note Name of Resident: Lynda Dominguez ATTENDING PHYSICIAN STATEMENT I saw and evaluated the patient. I reviewed the resident's note and discussed the case with the resident. I agree with the resident's findings and plan as documented. SUBJECTIVE:cough has improved. denies CP, SOB, fever, chills, N/V/C/D OBJECTIVE: Last Vital Signs Temp Pulse Resp BP Pulse Ox 98.4 F 90 20 155/77 96 05/04/17 10:00 05/04/17 12:45 05/04/17 12:45 05/04/17 12:45 05/04/17 09:00 General NAD bitemporal wasting, prominent clavicles CV S1 s2 RRR no murmur/rub/gallop Lungs mild L wheezing. crackles R base, improved inspiratory effort ABdomen soft NT/ND ASSESSMENT AND PLAN: 87yo F wtih PMH COPD, HTN, B/L hip replacement, hypothyroid and suspected R lung ca s/p resection presented to the [facility] after productive cough of green sputum [id number] and mechanical fall 1. RUL PNA-failed outpatient therapy. rapid strep negative. on Ceftriaxone day 5. will convert to keflex and complete a 7 day course pulmonary consulted. will need repeat CT in 4-6 weeks. f/u Cx 2. Acute COPD exacerbation-on medrol 40mg Q8H. will transition to pred 60mg. will titrate down Q2D by 10mg. cont nebs, symbicort. supplemental spO2 >90% 3. R hip pain- s/p mechanical fall. imaging negative for acute fx/subluxation. PT evaluation 4. Malnutrition- evident by body habitus and 20 lb weight loss. tolerating puree diet 5. HTN- above goal. norvasc increased. cont lisinopril 6. Hypothyroid- states she had thyroidectomy. TSH 0.01. unable to contact PMD. endo consulted to suggest if adjustment should be made. will f/u recommendations 7. possible R lung ca s/p resection- states she believes she had cancer because she was a heavy smoker but does not know if she really did. did not have chemo or rtx. will need to confirm with records 8. DVT ppx- hep sq 9. medically optimized for discharge to [facility]
--- NOTE | 2017-05-04 14:47 | PN ---
Progress Note, Physician Chief Complaint: CONGESTED COUGH IS IMPROVED History of Present Illness: REVIEWED - Current Medication List Current Medications: Active Medications Acetaminophen (Tylenol -) 500 mg PO Q4H PRN PRN Reason: FEVER Albuterol Sulfate (Ventolin 0.083% Nebulizer Soln -) 1 amp NEB Q4H PRN PRN Reason: SHORT OF BREATH/WHEEZING Albuterol/Ipratropium (Duoneb -) 1 amp NEB RQID [facility] Last Admin: 05/04/17 11:12 Dose: Not Given Amlodipine Besylate (Norvasc -) 5 mg PO DAILY [facility] Last Admin: 05/04/17 10:49 Dose: 5 mg Artificial Tears (Artificial Tears) 1 drop OU QID PRN PRN Reason: DRY EYES Benzocaine/Menthol (Cepacol Lozenge -) 1 each MM PRN PRN PRN Reason: SORE THROAT Budesonide/Formoterol Fumarate (Symbicort 160/4.5mcg -) 1 puff IH BID [facility] Last Admin: 05/04/17 10:50 Dose: 1 puff Duloxetine HCl (Cymbalta -) 60 mg PO DAILY [facility] Last Admin: 05/04/17 10:49 Dose: 60 mg Heparin Sodium (Porcine) (Heparin -) 5,000 unit SQ BID [facility] Last Admin: 05/04/17 10:48 Dose: 5,000 unit CEFTRIAXONE 1 G/50 ML PREMIX (Ceftriaxone 1 Gm-D5w Bag) 50 mls @ 100 mls/hr IVPB DAILY [facility] Last Admin: 05/04/17 10:48 Dose: 100 mls/hr Levothyroxine Sodium (Synthroid -) 150 mcg PO DAILY@0700 [facility] Last Admin: 05/04/17 06:13 Dose: 150 mcg Lisinopril (Prinivil) 10 mg PO DAILY [facility] Last Admin: 05/04/17 10:49 Dose: 10 mg Methylprednisolone Sodium Succinate (Solu-Medrol -) 40 mg IVPUSH Q8H-IV [facility] Last Admin: 05/04/17 10:48 Dose: 40 mg Mirtazapine (Remeron -) 7.5 mg PO HS [facility] Last Admin: 05/03/17 21:14 Dose: 7.5 mg Nystatin (Mycostatin Cream -) 1 applic TP Q4H PRN PRN Reason: DRY SKIN Nystatin (Nystatin Oral Suspension -) 500,000 units PO Q6HPO [facility] Last Admin: 05/04/17 11:06 Dose: 500,000 units Oxybutynin Chloride (Ditropan -) 5 mg PO BID [facility] Last Admin: 05/04/17 10:49 Dose: 5 mg - Objective Vital Signs: Vital Signs Temperature 98.4 F 05/04/17 10:00 Pulse Rate 90 05/04/17 12:45 Respiratory Rate 20 05/04/17 12:45 Blood Pressure 155/77 05/04/17 12:45 O2 Sat by Pulse Oximetry (%) 96 05/04/17 09:00 Constitutional: Yes: Calm Eyes: Yes: EOM Intact HENT: Yes: Normocephalic Neck: Yes: Trachea Midline Cardiovascular: Yes: S1, S2 Respiratory: Yes: Diminished Gastrointestinal: Yes: Normal Bowel Sounds Edema: No Neurological: Yes: Alert Psychiatric: Yes: Alert Labs: CBC, BMP 05/03/17 06:20 05/03/17 06:20 INR, PTT INR 1.04 (0.82-1.09) 04/30/17 02:53 - ....Imaging Chest X-ray: Report Reviewed, Image Reviewed Cat Scan: Report Reviewed, Image Reviewed EKG: Report Reviewed Problem List - Problems (1) Lung mass Code(s): R91.8 - OTHER NONSPECIFIC ABNORMAL FINDING OF LUNG FIELD (2) Aspiration pneumonia Code(s): J69.0 - PNEUMONITIS DUE TO INHALATION OF FOOD AND VOMIT (3) COPD exacerbation Code(s): J44.1 - CHRONIC OBSTRUCTIVE PULMONARY DISEASE W (ACUTE) EXACERBATION (4) HTN (hypertension) Code(s): I10 - ESSENTIAL (PRIMARY) HYPERTENSION Assessment/Plan Pneumonia Acute COPD Exacerbation Hypothyroidism h/o Lung Ca s/p resection - continue antibiotics oral - PO prednisone 60mg daily and taper as outpt - inhaled bronchodilators - O2 to keep SpO2 >90% - will need close outpt f/u of RUL opacity in 4-6 weeks, if unchanged will need PET and possible biopsy - DVT prophylaxsis Vladislav STARKS MD
--- NOTE | 2017-05-04 15:10 | DS ---
Physical Exam: SUBJECTIVE: Patient seen and examined. No acute events overnight. Offers no new complaints. Says her cough is better today without any sputum production. Denies SOB, CP, Nausea, vomiting, dizziness, dysuria. OBJECTIVE: Vital Signs Period Temp Pulse Resp BP Sys/Richardson Pulse Ox Last 24 Hr 98.1 F-99.1 F 76-99 20-20 155-182/77-97 94-96 PHYSICAL EXAM GENERAL: A/o x 3, confused at baseline, bitemporal wasting HEAD: Normal with no signs of trauma. EYES: PERRL, extraocular movements intact, sclera anicteric, conjunctiva clear. No ptosis. ENT: oropharynx with white exudates, moist mucous membranes. NECK: Trachea midline, full range of motion, supple. LUNGS: mild right sided crackles (improved), no wheezing HEART: Regular rate and rhythm, S1, S2 without murmur, rub or gallop. ABDOMEN: Soft, nontender, nondistended, normoactive bowel sounds, no guarding, no rebound, no hepatosplenomegaly, no masses. EXTREMITIES: 2+ pulses, warm, well-perfused, no edema, no R hip tenderness SKIN: Warm, dry, normal turgor, no rashes or lesions noted LABS HOSPITAL COURSE: Date of Admission:04/30/17 This is an 87 yo F [facility] resident, with PMH of COPD, R lung resection, HTN, archie hip replacements, hypothyroidism, depression, overactive bladder, who resents due to worsening cough and was found to have RUL/RLL PNA. She had similar symptoms at the [facility] and failed antibiotic therapy with Azithromycin and Clindaymycin. Patient was started on IV Abx- Ceftriaxone, Azithromycin (5 days) and clinical symptoms improved. Patient also underwent breathing treatments with duonebs, physiotherapy, IV Solu-medrol with a taper after discharge. Patient also was hypertensive during hospital course. We continued her Lisinopril and increased to 10mg. We also started her on Norvasc 2.5mg and now increased to 5mg. Patient also complained of R Hip pain s/p mechanical fall and xrays were negative for fractures. Patient was able to walk 75 feet with PT and recommended close contact guard of 1. Patient clinically and medically cleared for discharge. She will be transferred to subacute rehab. Date of Discharge: 02/09/18 Minutes to complete discharge: 35 Discharge Summary Reason For Visit: ASPIRATION PNEUMONIA Current Active Problems Aspiration pneumonia (Acute) Lung mass (Acute) Pneumonia (Acute) COPD exacerbation (Chronic) Depression (Chronic) HTN (hypertension) (Chronic) Hypothyroid (Chronic) Overactive bladder (Chronic) Weight loss (Chronic) Condition: Guarded - Instructions Diet, Activity, Other Instructions: You were admitted for the treatment of Pneumonia and was treated with IV antibiotics. Switched IV antibiotics IV to PO antibiotics (Keflex) to continue for 2 more days. Please repeat a chest x-ray in 6 weeks. We have arranged you to go to a short term rehab for you to get stronger. You were started on a new medication to control your blood pressure better. Please have your blood pressure monitored and medications further adjusted as needed. For COPD exacerbation, you were treated with prednisone. Please follow following instructions: 1. Start Prednisone 60mg PO daily x 2 days then 2. Prednisone 40 mg PO daily x 2 days then 3. Prednisone 30mg PO daily x 2 days 4. Prednisone 20mg PO daily x 2 days 5. Prednisone 10mg PO daily x 2 days then stop. We tried to contact your primary physician to get more information regarding your thyroid medication but we weren't able to reach him. 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 Please follow up with Dr. Johnson next week to readjust the medication. Please follow up with your primary physician in a week. Return to the ED if there are any worsening symptoms. Referrals: Lorraine Johnson MD [Staff Physician] - Disposition: HALF-WAY FACILITY - Home Medications Comprehensive Discharge Medication List: Ambulatory Orders Duloxetine HCl [Cymbalta] 60 mg PO DAILY 04/30/17 Hypromellose 0.5% Opth Soln [Artificial Tears] 1 drop OU DAILY 04/30/17 Levothyroxine [Synthroid -] 150 mcg PO DAILY 04/30/17 Mirabegron [Myrbetriq] 50 mg PO DAILY 04/30/17 Mirtazapine [Remeron -] 7.5 mg PO DAILY 04/30/17 Montelukast Sodium [Singulair] 10 mg PO DAILY 04/30/17 Nystatin Cream [Mycostatin Cream -] 1 applic TP PRN 04/30/17 Amlodipine Besylate [Norvasc -] 5 mg PO DAILY #30 tablet 05/04/17 Budesonide/Formeterol Fumarate [SYMBICORT 160/4.5mcg -] 1 inh IH BID #1 inhaler 05/04/17 Cephalexin [Keflex] 500 mg PO BID #4 capsule 05/04/17 Lisinopril 10 mg PO DAILY #30 tablet 05/04/17 Oxybutynin Chloride 5 mg PO BID #60 tablet 05/04/17 Polyvinyl Alcohol [Artificial Tears] 1 drop OU QID PRN drops 05/04/17 Prednisone [Prednisone 50 MG TABLETS] See Taper PO DAILY #10 tablet 05/04/17 This patient is new to me today: No Emergency Visit: Yes ED Registration Date: 04/30/17 Care time: The patient presented to the Emergency Department on the above date and was hospitalized for further evaluation of their emergent condition. Critical Care patient: No - Discharge Referral Referred to [facility] Med P.C.: No
[2017-05-04 15:28] VITALS: BP 165/84; PULSE 103; TEMP 97.9
== END 2017-05-04 17:31 | DRG 177 ==
LOC: JER 01:40 → JERBED 06:46 → OBSVTOIN 09:40 → J5S 10:18
PROVIDERS: ADMIT Internal Medicine; ATTEND Internal Medicine
DX: J69.0 Pneumonitis due to inhalation of food and vomit (principal); E43 Unspecified severe protein-calorie malnutrition; J44.0 Chronic obstructive pulmonary disease with (acute) lower respiratory infection; J44.1 Chronic obstructive pulmonary disease with (acute) exacerbation; I10 Essential (primary) hypertension; E03.9 Hypothyroidism, unspecified; N32.81 Overactive bladder; F32.89 Other specified depressive episodes; M25.551 Pain in right hip; D72.828 Other elevated white blood cell count; R13.19 Other dysphagia; F32.9 Major depressive disorder, single episode, unspecified; W18.39XA Other fall on same level, initial encounter; Z68.21 Body mass index [BMI] 21.0-21.9, adult; Z88.0 Allergy status to penicillin; Z87.891 Personal history of nicotine dependence; Z96.643 Presence of artificial hip joint, bilateral; Z85.118 Personal history of other malignant neoplasm of bronchus and lung; Y93.89 Activity, other specified; Y92.098 Other place in other non-institutional residence as the place of occurrence of the external cause
CPT/HCPCS: 36415; 71045-TC; 71250-TC; 73502-TC-RT; 73552-TC-RT-FY; 73560-TC-RT-FY; 74230-TC-FY; 80048; 80053; 81003; 82550; 82803; 83605; 83735; 84100; 84439; 84443; 84484; 85025; 85027; 85610; 85730; 87040; 87070; 87086; 87186; 87430; 87804; 92611-GN; 93005; 93010; 94640; 97116-GP; 97161-GP; 99283-25; G0378; J1644

== ENCOUNTER 2017-06-15 21:59 | Inpatient (IN) | payer OTHER, MEDICARE ==
--- NOTE | 2017-06-15 22:08 | PDOC ---
History of Present Illness - History of Present Illness Initial Comments: 06/16/17 01:03 Patient is an 87 F who was BIBA from an independent living facility, with PMH of COPD, R lung resection, HTN, b/l hip replacements, hypothyroidism, depression , overactive bladder, and presents with difficulty getting up from seated position for several years. Patient states that she has difficulty getting up to a seated position without assistance. She states she has had this issue for the past two days, but she has experienced this intermittently for years. She denies fever, chills, chest pain, shortness of breath, headache, hematuria, or dysuria. She states that she was strongly recommended to come to the ED for this issue shes been having. She would like an orthopedic referral for her issue. Allergies: Sulfa, penicillins <Latrice Damico - Last Filed: 06/16/17 01:04> <Sagrario Munoz - Last Filed: 06/16/17 02:01> - General Stated Complaint: WEAKNESS Time Seen by Provider: 06/15/17 22:07 Past History <Latrice Damico - Last Filed: 06/16/17 01:04> - Past Medical History Asthma: Yes COPD: No Disorders: Yes (overactive bladder) HTN: Yes Psychiatric Problems: Yes (depression) Thyroid Disease: Yes - Surgical History Lung Surgery: Yes (partial lung lobectomy) Orthopedic Surgery: Yes (archie hip replacements) - Immunization History Immunization Up to Date: Yes - Suicide/Smoking/Psychosocial Hx Smoking History: Never smoked Have you smoked in the past 12 months: No If you are a former smoker, when did you quit?: 5 yrs ago Hx Alcohol Use: No Drug/Substance Use Hx: No Substance Use Type: None <Sagrario Munoz - Last Filed: 06/16/17 02:01> - Past Medical History Allergies/Adverse Reactions: Allergies Allergy/AdvReac Type Severity Reaction Status Date / Time Sulfa (Sulfonamide Allergy Verified 04/30/17 02:02 Antibiotics) Penicillins AdvReac Verified 04/30/17 09:56 Home Medications: Ambulatory Orders Duloxetine HCl [Cymbalta] 60 mg PO DAILY 04/30/17 Mirabegron [Myrbetriq] 50 mg PO DAILY 04/30/17 Mirtazapine [Remeron -] 7.5 mg PO DAILY 04/30/17 Montelukast Sodium [Singulair] 10 mg PO DAILY 04/30/17 Nystatin Cream [Mycostatin Cream -] 1 applic TP PRN 04/30/17 Amlodipine Besylate [Norvasc -] 5 mg PO DAILY #30 tablet 05/04/17 Budesonide/Formeterol Fumarate [SYMBICORT 160/4.5mcg -] 1 inh IH BID #1 inhaler 05/04/17 Cephalexin [Keflex] 500 mg PO BID #4 capsule 05/04/17 Levothyroxine Sodium [Synthroid] 137 mcg PO DAILY #7 tablet 05/04/17 Lisinopril 10 mg PO DAILY #30 tablet 05/04/17 Oxybutynin Chloride 5 mg PO BID #60 tablet 05/04/17 Polyvinyl Alcohol [Artificial Tears] 1 drop OU QID PRN drops 05/04/17 Prednisone [Prednisone 50 MG TABLETS] See Taper PO DAILY #10 tablet 05/04/17 Hypromellose 0.5% Opth Soln [Artificial Tears] 1 drop OU TID 06/15/17 Polyethylene Glycol 3350 [Laxaclear] 1,700 gm PO DAILY 06/15/17 Review of Systems - Review of Systems Comments:: 06/16/17 01:03 GENERAL/CONSTITUTIONAL: No fever or chills. + generalized LE weakness. HEAD, EYES, EARS, NOSE AND THROAT: No change in vision. No ear pain or discharge. No sore throat. GASTROINTESTINAL: No nausea, vomiting, diarrhea or constipation. GENITOURINARY: No dysuria, frequency, or change in urination. CARDIOVASCULAR: No chest pain or shortness of breath. RESPIRATORY: No cough, wheezing, or hemoptysis. MUSCULOSKELETAL: No joint or muscle swelling or pain. No neck or back pain. SKIN: No rash NEUROLOGIC: No headache, vertigo, loss of consciousness, or change in strength/ sensation. ENDOCRINE: No increased thirst. No abnormal weight change. HEMATOLOGIC/LYMPHATIC: No anemia, easy bleeding, or history of blood clots. ALLERGIC/IMMUNOLOGIC: No hives or skin allergy. <Latrice Damico - Last Filed: 06/16/17 01:04> *Physical Exam - Vital Signs Last Vital Signs Temp Pulse Resp BP Pulse Ox 98.2 F 80 18 120/72 96 06/15/17 22:22 06/15/17 22:22 06/15/17 22:22 06/15/17 22:22 06/15/17 22:22 - Physical Exam Comments: 06/16/17 01:04 GENERAL: Awake, alert, and fully oriented, in no acute distress HEAD: No signs of trauma EYES: PERRLA, EOMI, sclera anicteric, conjunctiva clear ENT: Auricles normal inspection, hearing grossly normal, nares patent, oropharynx clear without exudates. Moist mucosa NECK: Normal ROM, supple, no lymphadenopathy, JVD, or masses LUNGS: Breath sounds equal, clear to auscultation bilaterally. No wheezes, and no crackles HEART: Regular rate and rhythm, normal S1 and S2, no murmurs, rubs or gallops ABDOMEN: Soft, nontender, normoactive bowel sounds. No guarding, no rebound. No masses EXTREMITIES: Normal range of motion, no edema. No clubbing or cyanosis. No cords, erythema, or tenderness BACK: No midline spinal tenderness in cervical/thoracic/lumbar region NEUROLOGICAL: Normal speech, cranial nerves intact, negative pronator drift, 5/ 5 strength in all 4 extremities, normal sensation to light touch in all 4 extremities, normal cerebellar exam, gait deffered, normal reflexes and tone SKIN: Warm, Dry, normal turgor, no rashes or lesions noted. <Latrice Damico - Last Filed: 06/16/17 01:04> Heart Score/ECG Review #1 06/16/17 01:05 Twelve-lead EKG was performed and reviewed by me. Normal sinus rhythm, rate 71. Right bundle branch block. No ST elevations. No sig change compared to previous EKG. <Sagrario Munoz - Last Filed: 06/16/17 02:01> ED Treatment Course - LABORATORY CBC & Chemistry Diagram: 06/15/17 23:50 06/15/17 23:50 - ADDITIONAL ORDERS Additional order review: Laboratory Results 06/16/17 06/15/17 00:33 23:50 Sodium 137 Potassium 4.2 Chloride 101 Carbon Dioxide 28 Anion Gap 8 BUN 16 Creatinine 0.7 Creat Clearance w eGFR > 60 Random Glucose 82 Calcium 8.3 L Total Bilirubin 0.5 D AST 12 L ALT 14 Alkaline Phosphatase 63 Troponin I < 0.02 Total Protein 6.3 L Albumin 2.9 L Urine Color Yellow Urine Appearance Slcloudy Urine pH 6.0 Ur Specific Mcclure 1.011 Urine Protein Negative Urine Glucose (UA) Negative Urine Ketones Negative Urine Blood Negative Urine Nitrite Negative Urine Bilirubin Negative Urine Urobilinogen Negative Ur Leukocyte Esterase 3+ H 06/15/17 23:50 RBC 3.66 MCV 90.6 MCHC 33.4 RDW 15.7 H D MPV 8.7 Neutrophils % 56.4 D Lymphocytes % 27.4 D Monocytes % 11.7 H D Eosinophils % 3.3 D Basophils % 1.2 D <Latrice Damico - Last Filed: 06/16/17 01:04> - LABORATORY CBC & Chemistry Diagram: 06/15/17 23:50 06/15/17 23:50 <Sagrario Munoz - Last Filed: 06/16/17 02:01> Medical Decision Making - Medical Decision Making 06/16/17 01:33 87-year-old female with multiple medical problems presents from the assisted living facility with weakness and inability to stand up from a seated position. At baseline, patient able to stand unassisted to walker and ambulate. Vitals within normal limits. Exam with suprapubic tenderness palpation. EKG is nonischemic. Labs within normal limits including negative troponin. Patient found to have UTI upon straight catheter. Based on previous sensitivities, will treat the patient with ceftriaxone. Patient has a penicillin ALLERGY but has safely received cephalosporins in the past. On reassessment, with two people assisting, pt unable to stand unassisted and unable to ambulate more than 2 steps without needing to sit down. We have reached out to the admitting hospitalist for admission. 06/16/17 02:[address] Bhardwaj, pt accepted for admission to Dr. Kan. Case discussed in detail with admitting physician including history, physical exam and ancillary studies. Admitting physician has assumed care for the patient, will follow all pending diagnostics and will complete the evaluation and treatment. <Sagrario Munoz - Last Filed: 06/16/17 02:01> *DC/Admit/Observation/Transfer - Attestations Scribe Attestion: 06/16/17 01:05 Documentation prepared by Latrice Damico, acting as medical practice administrator for Sagrario Munoz MD. <Latrice Damico - Last Filed: 06/16/17 01:04> - Discharge Dispostion Admit: Yes - Attestations Physician Attestion: 06/16/17 02:00 I, Dr. Sagrario Munoz MD, attest that this document has been prepared under my direction and personally reviewed by me in its entirety. I further attest, that it accurately reflects all work, treatment, procedures and medical decision -making performed by me. <Sagrario Munoz - Last Filed: 06/16/17 02:01> Diagnosis at time of Disposition: UTI (urinary tract infection), Weakness generalized - Discharge Dispostion Condition at time of disposition: Stable
[2017-06-15 23:57] LABS: BASO % 1.2 % (0-2.0); EOS % 3.3 % (0-4.5); HEMATOCRIT 33.1 % (32.4-45.2); HEMOGLOBIN 11.1 GM/dL (10.7-15.3); LYMPH % 27.4 % (8-40); MCH 30.2 pg (25.7-33.7); MCHC 33.4 g/dl (32.0-36.0); MEAN CELL VOLUME 90.6 fl (80-96); MEAN PLT VOLUME 8.7 fl (7.5-11.1); MONO % 11.7 % (3.8-10.2); NEUT % 56.4 % (42.8-82.8); PLATELET COUNT 372 K/MM3 (134-434); RBC 3.66 M/mm3 (3.60-5.2); RDW 15.7 % (11.6-15.6); WHITE BLOOD COUNT 8.8 K/mm3 (4.0-10.0)
[2017-06-16 00:44] LABS: ALBUMIN 2.9 g/dl (3.4-5.0); ANION GAP 8 (8-16); BILIRUBIN,TOTAL 0.5 mg/dL (0.2-1.0); BLOOD UREA NITROGEN 16 mg/dL (7-18); CALCIUM 8.3 mg/dL (8.5-10.1); CHLORIDE 101 mmol/L (98-107); CO2 28 mmol/L (21-32); CREATININE 0.7 mg/dL (0.55-1.02); GLUCOSE,RANDOM 82 mg/dL (74-106); POTASSIUM 4.2 mmol/L (3.5-5.1); SGOT/AST 12 U/L (15-37); SGPT/ALT 14 U/L (12-78); SODIUM 137 mmol/L (136-145); TOT PROT 6.3 g/dl (6.4-8.2)
[2017-06-16 00:44] LABS: URINE APPEARANCE SLCLOUDY; URINE BILIRUBIN NEGATIVE (<2.0 mg/dL); URINE BLOOD NEGATIVE (NEGATIVE); URINE COLOR YELLOW; URINE GLUCOSE (UA) NEGATIVE (NEGATIVE); URINE KETONE NEGATIVE (NEGATIVE); URINE NITRITE NEGATIVE (NEGATIVE); URINE PROTEIN NEGATIVE (NEGATIVE); URINE UROBILINOGEN NEGATIVE mg/dL (0.2-1.0)
[2017-06-16 00:46] LABS: ALK PHOS 63 U/L (45-117)
[2017-06-16 00:48] LABS: URINE LEUK ESTERASE 3+ (NEGATIVE)
[2017-06-16 01:02] LABS: EPI CELLS MANY /HPF (FEW)
[2017-06-16] MEDS ORDERED: CEFTRIAXONE 1 GM in DEXTROSE 5%-WATER - 50 ML IVPB ONE (01:32)
[2017-06-16] MEDS ORDERED: CEFTRIAXONE 1 GM/50 ML BAG ONE (01:49)
--- NOTE | 2017-06-16 02:26 | HP ---
CHIEF COMPLAINT: sent by independent living facility for weakness PCP: Dr. Little HISTORY OF PRESENT ILLNESS: 87 y/o F w/PMH of COPD, R lung partial resection, HTN, b/l hip replacement, hypothyroidism, depression, overactive bladder presents to the ER after being sent in by her independent living facility for weakness. Pt states she has had trouble getting up from seated position yesterday which she is able to do at her baseline. She also reports feeling "tired". She was also walked in the ER here with walker and assistance and was only able to ambulate 2 feet. At living facility she can walk with walker on her own. She denies any light-headedness, fevers, chills, nausea, vomiting, CP, SOB, cough, abd pain, dysuria, blood in urine, change in urinary frequency, LE swelling. Pt was discharged 05/04/17 from [facility] where she was treated for pna. ER course was notable for: (1) ceftriaxone, UA (2) (3) Recent Travel: denies PAST MEDICAL HISTORY: COPD, R lung partial resection, HTN, hypothyroidism, depression, overactive bladder PAST SURGICAL HISTORY: R lung partial resection, b/l hip replacements Social History: Smoking: denies current use. Was former smoker. Alcohol: denies Drugs: denies Family History: n-c Allergies Sulfa (Sulfonamide Antibiotics) Allergy (Verified 04/30/17 02:02) Penicillins Adverse Reaction (Verified 04/30/17 09:56) HOME MEDICATIONS: Home Medications Medication Instructions Recorded Duloxetine HCl [Cymbalta] 60 mg PO DAILY 04/30/17 Mirabegron [Myrbetriq] 50 mg PO DAILY 04/30/17 Mirtazapine [Remeron -] 7.5 mg PO DAILY 04/30/17 Montelukast Sodium [Singulair] 10 mg PO DAILY 04/30/17 Nystatin Cream [Mycostatin Cream -] 1 applic TP PRN 04/30/17 Amlodipine Besylate [Norvasc -] 5 mg PO DAILY #30 tablet 05/04/17 Budesonide/Formeterol Fumarate 1 inh IH BID #1 inhaler 05/04/17 [SYMBICORT 160/4.5mcg -] Cephalexin [Keflex] 500 mg PO BID #4 capsule 05/04/17 Levothyroxine Sodium [Synthroid] 137 mcg PO DAILY #7 tablet 05/04/17 Lisinopril 10 mg PO DAILY #30 tablet 05/04/17 Oxybutynin Chloride 5 mg PO BID #60 tablet 05/04/17 Polyvinyl Alcohol [Artificial 1 drop OU QID PRN drops 05/04/17 Tears] Prednisone [Prednisone 50 MG See Taper PO DAILY #10 tablet 05/04/17 TABLETS] Hypromellose 0.5% Opth Soln 1 drop OU TID 06/15/17 [Artificial Tears] Polyethylene Glycol 3350 1,700 gm PO DAILY 06/15/17 [Laxaclear] REVIEW OF SYSTEMS CONSTITUTIONAL: +generalized weakness Absent: fever, chills HEENT: Absent: visual changes CARDIOVASCULAR: Absent: chest pain, lightheadedness, peripheral edema RESPIRATORY: Absent: cough, shortness of breath GASTROINTESTINAL: Absent: abdominal pain, abdominal distension, nausea, vomiting, diarrhea, constipation, hematochezia GENITOURINARY: Absent: dysuria, frequency, hematuria NEUROLOGIC: Absent: headache, dizziness PHYSICAL EXAMINATION Vital Signs - 24 hr 06/15/17 22:22 Temperature 98.2 F Pulse Rate 80 Respiratory 18 Rate Blood Pressure 120/72 O2 Sat by Pulse 96 Oximetry (%) GENERAL: Awake, alert, and fully oriented, in no acute distress. EYES: extraocular movements intact, sclera anicteric, conjunctiva clear. EARS, NOSE, THROAT: Ears normal, nares patent, Moist mucous membranes. NECK: Normal range of motion, supple LUNGS: +b/l wheezing HEART: Regular rate and rhythm, normal S1 and S2 ABDOMEN: Soft, nontender, not distended, normoactive bowel sounds MUSCULOSKELETAL: No CVA tenderness. LOWER EXTREMITIES: 2+ pulses, warm, well-perfused. No peripheral edema. NEUROLOGICAL: Normal speech. gait not observed. PSYCHIATRIC: Cooperative. Good eye contact. Appropriate mood and affect. SKIN: Warm, dry Laboratory Results - last 24 hr 06/15/17 06/15/17 06/16/17 23:50 23:50 00:33 WBC 8.8 RBC 3.66 Hgb 11.1 Hct 33.1 MCV 90.6 MCH 30.2 MCHC 33.4 RDW 15.7 H D Plt Count 372 D MPV 8.7 Neutrophils % 56.4 D Lymphocytes % 27.4 D Monocytes % 11.7 H D Eosinophils % 3.3 D Basophils % 1.2 D Sodium 137 Potassium 4.2 Chloride 101 Carbon Dioxide 28 Anion Gap 8 BUN 16 Creatinine 0.7 Creat Clearance w eGFR > 60 Random Glucose 82 Calcium 8.3 L Total Bilirubin 0.5 D AST 12 L ALT 14 Alkaline Phosphatase 63 Troponin I < 0.02 Total Protein 6.3 L Albumin 2.9 L Urine Color Yellow Urine Appearance Slcloudy Urine pH 6.0 Ur Specific [place] 1.011 Urine Protein Negative Urine Glucose (UA) Negative Urine Ketones Negative Urine Blood Negative Urine Nitrite Negative Urine Bilirubin Negative Urine Urobilinogen Negative Ur Leukocyte Esterase 3+ H Urine WBC (Auto) 72 Urine RBC (Auto) 1 Ur Epithelial Cells Many ASSESSMENT/PLAN: 87 y/o F w/PMH of COPD, R lung partial resection, HTN, b/l hip replacement, hypothyroidism, depression, overactive bladder presents to the ER after being sent in by her independent living facility for weakness. Found to have UTI on UA. -Weakness secondary to likely UTI -will hold of on abx for now, pt is asymptomatic, UA with many epithelial cells - possible contamination -f/u UCx, CXR - start abx if positive -NS @ 50 ml/hr -check TSH, Mg -Physical therapy -COPD -duoneb x1 now, c/w duonebs q6h prn for wheezing/sob -c/w symbicort, singulair -HTN -c/w lisinopril 10 mg po qd -c/w norvasc 5 mg po qd -Hypothyroidism -c/w synthroid 137 mcg po qd -Overactive bladder -c/w myrbetriq 50 mg po qd -c/w oxybutynin 5 mg po bid -Depression -c/w mirtazapine 7.5 mg -c/w duloxetine 60 mg -DVT ppx -heparin 5000 units sq q8h -FEN -NS @ 50 ml/hr -monitor electrolytes -Dysphagia puree diet -Dispo: m/s obs Visit type - Emergency Visit Emergency Visit: Yes ED Registration Date: 06/17/17 Care time: The patient presented to the Emergency Department on the above date and was hospitalized for further evaluation of their emergent condition. - New Patient This patient is new to me today: Yes Date on this admission: 06/18/17 - Critical Care Critical Care patient: No Hospitalist Screening - Colonoscopy Questionnaire Colonoscopy Questionnaire: Colonoscopy Questionnaire - Patient: 50 - 75 years old and never had a screening colonoscopy: Unknown History of colon or rectal polyps, or CA: Unknown History of IBD, Crohn's disease or UC: Unknown History of abdominal radiation therapy as a child: Unknown - Relative: 1 with colon or rectal CA, or polyps at age 60 or younger: Unknown Colon or rectal CA diagnosed at age 45 or younger: Unknown Multiple relatives with colon or rectal CA: Unknown - Outcome: Screening Result: Negative Screen
[2017-06-16] MEDS ORDERED: ALBUTEROL SO4 2.5/IPRATROPIUM 0.5 INH SOL 3 ML VIAL.NEB. NEB ONE (02:30)
[2017-06-16] MEDS: SODIUM CHLORIDE 1,000 ML IV SCH ×2 (04:30→06:35)
--- NOTE | 2017-06-16 06:23 | PN ---
Teaching Attending Note Name of Resident: Macario Bhardwaj ATTENDING PHYSICIAN STATEMENT I saw and evaluated the patient. I reviewed the resident's note and discussed the case with the resident. I agree with the resident's findings and plan as documented. SUBJECTIVE: 87F sent in from living facility for weakness OBJECTIVE: UA 3+ LE but also many epithelial cells ASSESSMENT AND PLAN: 87F with chronic weakness, based on prior PT notes she was walking from 5ft at intial eval to 75ft 4 days later with strong encouragement Rehab consult IVF no UTI - follow up Ucx
[2017-06-16] MEDS: HEPARIN NA (PORCINE) 5,000 UNITS/ML 1ML VIAL SQ SCH ×3 (06:30→21:30)
[2017-06-16 08:17] LABS: BASO % 1.1 % (0-2.0); EOS % 3.5 % (0-4.5); HEMATOCRIT 32.2 % (32.4-45.2); HEMOGLOBIN 10.8 GM/dL (10.7-15.3); LYMPH % 20.8 % (8-40); MCH 30.2 pg (25.7-33.7); MCHC 33.6 g/dl (32.0-36.0); MEAN CELL VOLUME 89.8 fl (80-96); MEAN PLT VOLUME 8.6 fl (7.5-11.1); NEUT % 64.6 % (42.8-82.8); PLATELET COUNT 338 K/MM3 (134-434); RBC 3.58 M/mm3 (3.60-5.2); RDW 15.6 % (11.6-15.6)
[2017-06-16 08:44] LABS: ANION GAP 9 (8-16); BLOOD UREA NITROGEN 14 mg/dL (7-18); CALCIUM 8.2 mg/dL (8.5-10.1); CHLORIDE 103 mmol/L (98-107); CO2 26 mmol/L (21-32); CREATININE 0.6 mg/dL (0.55-1.02); GLUCOSE,RANDOM 85 mg/dL (74-106); MAGNESIUM 2.1 mg/dL (1.8-2.4); POTASSIUM 4.1 mmol/L (3.5-5.1); SGOT/AST 9 U/L (15-37); SGPT/ALT 14 U/L (12-78); SODIUM 138 mmol/L (136-145)
[2017-06-16 08:48] LABS: ALBUMIN 2.7 g/dl (3.4-5.0); ALK PHOS 60 U/L (45-117); BILIRUBIN,TOTAL 0.7 mg/dL (0.2-1.0)
[2017-06-16] MEDS: ALBUTEROL SO4 2.5/IPRATROPIUM 0.5 INH SOL 3 ML VIAL.NEB. NEB SCH ×4 (08:58→20:55)
[2017-06-16 09:03] VITALS: BMI 22.1
[2017-06-16] MEDS ORDERED: CEFTRIAXONE 1 GM in DEXTROSE 5%-WATER - 50 ML IVPB SCH (10:00)
[2017-06-16] MEDS ORDERED: amLODIPine BESYLATE 5 MG TABLET (FP) PO SCH (10:00)
[2017-06-16] MEDS ORDERED: PATIENT'S OWN MEDICATION (NON-FORMULARY) (Mirabegron [Myrbetriq] 50 MG) PO SCH (10:00)
[2017-06-16] MEDS ORDERED: PATIENT'S OWN MEDICATION (NON-FORMULARY) (Levothyroxine Sodium [Synthroid] 137 MCG) PO SCH (10:00)
[2017-06-16] MEDS: LISINOPRIL 10 MG TABLET (FP) PO SCH (10:20)
[2017-06-16] MEDS: DULoxetine HCL 30 MG CAPSULE.DR (FP) PO SCH (10:21)
[2017-06-16] MEDS: OXYBUTYNIN CHLORIDE 5 MG TABLET PO SCH ×2 (10:22→21:31)
[2017-06-16] MEDS: LEVOTHYROXINE 112 MCG, LEVOTHYROXINE 25 MCG PO SCH (10:23)
[2017-06-16] MEDS: BUDESONIDE/FORMETEROL FUMARATE 160/4.5 mcg INHALER IH SCH ×2 (12:18→21:31)
[2017-06-16] MEDS ORDERED: amLODIPine BESYLATE 5 MG TABLET (FP) PO ONE (16:11)
--- NOTE | 2017-06-16 16:11 | PN ---
Progress Note (short form) - Note Progress Note: c/o tinginling in all her fingers. occurs intermittently. currently no pain or tingling. admits to urinary frequency. denies CP, SOB, fever, chills, N/v/C/D. no dysuria or hematuria Current Medications Generic Name Dose Route Start Last Admin Trade Name Cuca PRN Reason Stop Dose Admin Albuterol/Ipratropium 1 amp 06/16/17 08:00 06/16/17 11:15 Duoneb - NEB 1 amp RQID YNES Administration Amlodipine Besylate 5 mg 06/16/17 10:00 06/16/17 10:22 Norvasc - PO 5 mg DAILY YNES Administration Budesonide/Formoterol Fumarate 1 puff 06/16/17 10:00 06/16/17 12:18 Symbicort 160/4.5mcg - IH 1 puff BID YNES Administration Duloxetine HCl 60 mg 06/16/17 10:00 06/16/17 10:21 Cymbalta - PO 60 mg DAILY YNES Administration Heparin Sodium (Porcine) 5,000 unit 06/16/17 06:00 06/16/17 15:13 Heparin - SQ 5,000 unit TID YNES Administration Sodium Chloride 1,000 mls @ 50 mls/hr 06/16/17 03:45 06/16/17 06:35 Normal Saline - IV 06/17/17 03:40 50 mls/hr ASDIR YNES Administration Levothyroxine Sodium 112 mcg/ 137 mcg 06/16/17 07:00 06/16/17 10:23 Levothyroxine Sodium 25 mcg PO 137 mcg DAILY@0700 YNES Administration Lisinopril 10 mg 06/16/17 10:00 06/16/17 10:20 Prinivil PO 10 mg DAILY YNES Administration Mirtazapine 7.5 mg 06/16/17 22:00 Remeron - PO HS YNES Montelukast Sodium 10 mg 06/16/17 22:00 Singulair - PO HS YNES Non-Formulary Medication 50 mg 06/16/17 10:00 Mirabegron [Myrbetriq] PO DAILY YNES Oxybutynin Chloride 5 mg 06/16/17 10:00 06/16/17 10:22 Ditropan - PO 5 mg BID YNES Administration Last Vital Signs Temp Pulse Resp BP Pulse Ox 98.2 F 80 18 139/66 96 06/16/17 15:36 06/16/17 15:36 06/16/17 15:36 06/16/17 15:36 06/16/17 03:18 General NAD CV S1 S2 RRR +murmur Lungs CTA B/L no wheezing/rales/rhonchi Abdomen soft NT +suprapubic tenderness Extremities no pedal edema, no joint effusions or tenderness of the digits CBCD WBC 9.0 K/mm3 (4.0-10.0) 06/16/17 07:20 RBC 3.58 M/mm3 (3.60-5.2) L 06/16/17 07:20 Hgb 10.8 GM/dL (10.7-15.3) 06/16/17 07:20 Hct 32.2 % (32.4-45.2) L 06/16/17 07:20 MCV 89.8 fl (80-96) 06/16/17 07:20 MCHC 33.6 g/dl (32.0-36.0) 06/16/17 07:20 RDW 15.6 % (11.6-15.6) 06/16/17 07:20 Plt Count 338 K/MM3 (134-434) 06/16/17 07:20 MPV 8.6 fl (7.5-11.1) 06/16/17 07:20 CMP Sodium 138 mmol/L (136-145) 06/16/17 07:20 Potassium 4.1 mmol/L (3.5-5.1) 06/16/17 07:20 Chloride 103 mmol/L (98-107) 06/16/17 07:20 Carbon Dioxide 26 mmol/L (21-32) 06/16/17 07:20 Anion Gap 9 (8-16) 06/16/17 07:20 BUN 14 mg/dL (7-18) 06/16/17 07:20 Creatinine 0.6 mg/dL (0.55-1.02) 06/16/17 07:20 Creat Clearance w eGFR > 60 (>60) 06/16/17 07:20 Calcium 8.2 mg/dL (8.5-10.1) L 06/16/17 07:20 Total Bilirubin 0.7 mg/dL (0.2-1.0) D 06/16/17 07:20 AST 9 U/L (15-37) L 06/16/17 07:20 ALT 14 U/L (12-78) 06/16/17 07:20 Alkaline Phosphatase 60 U/L (45-117) 06/16/17 07:20 Total Protein 6.0 g/dl (6.4-8.2) L 06/16/17 07:20 Albumin 2.7 g/dl (3.4-5.0) L 06/16/17 07:20 A/P 87yo F wtih PMH COPD, HTN, B/L hip replacement, hypothyroid and 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 Generalized weakness- likely due to UTI and age progression. PT assessment. only able to walk 10 ft. agreeable to [facility] 2. UTI- on ceftriaxone day 1. f/u Cx 3. HTN- above goal. increase norvasc. cont current management 4. COPD- no signs of acute exacerbation 5.Hypothyroid- cont Lt4 6. DVT ppx- hep sq 7. will need [facility] placement Visit type - Emergency Visit Emergency Visit: Yes ED Registration Date: 06/16/17 Care time: The patient presented to the Emergency Department on the above date and was hospitalized for further evaluation of their emergent condition. - New Patient This patient is new to me today: Yes Date on this admission: 06/16/17 - Critical Care Critical Care patient: No - Discharge Referral Referred to [facility] Med P.C.: No
[2017-06-16] MEDS ORDERED: IBUPROFEN 400 MG TABLET (FP) PO PRN (16:12)
[2017-06-16] MEDS ORDERED: PT OWN MED DRAWER 7, Y5N ONE ×2 (19:10→21:23)
[2017-06-16] MEDS: MIRTAZAPINE 15 MG TABLET (FP) PO SCH (21:30)
[2017-06-16] MEDS: MONTELUKAST NA 10 MG TABLET PO SCH (21:31)
[2017-06-17] MEDS: LEVOTHYROXINE 112 MCG, LEVOTHYROXINE 25 MCG PO SCH (06:58)
[2017-06-17] MEDS: HEPARIN NA (PORCINE) 5,000 UNITS/ML 1ML VIAL SQ SCH ×3 (06:58→22:32)
[2017-06-17] MEDS: ALBUTEROL SO4 2.5/IPRATROPIUM 0.5 INH SOL 3 ML VIAL.NEB. NEB SCH ×4 (07:28→20:15)
[2017-06-17 07:30] LABS: BASO % 0.9 % (0-2.0); EOS % 3.7 % (0-4.5); HEMATOCRIT 31.3 % (32.4-45.2); HEMOGLOBIN 10.4 GM/dL (10.7-15.3); LYMPH % 19.3 % (8-40); MCH 29.9 pg (25.7-33.7); MCHC 33.1 g/dl (32.0-36.0); MEAN CELL VOLUME 90.2 fl (80-96); MEAN PLT VOLUME 8.9 fl (7.5-11.1); MONO % 9.5 % (3.8-10.2); NEUT % 66.6 % (42.8-82.8); PLATELET COUNT 315 K/MM3 (134-434); RBC 3.47 M/mm3 (3.60-5.2); RDW 15.5 % (11.6-15.6); WHITE BLOOD COUNT 10.1 K/mm3 (4.0-10.0)
[2017-06-17] MEDS ORDERED: DEXTROSE 5%-WATER - 50 ML IVPB ONE (09:28)
[2017-06-17] MEDS ORDERED: cefTRIAXone SODIUM 1 GM VIAL ONE (09:28)
[2017-06-17 11:04] LABS: CHLORIDE 105 mmol/L (98-107); POTASSIUM 4.2 mmol/L (3.5-5.1); SODIUM 140 mmol/L (136-145)
[2017-06-17] MEDS: LISINOPRIL 10 MG TABLET (FP) PO SCH (11:09)
[2017-06-17] MEDS: CEFTRIAXONE 1 GM in DEXTROSE 5%-WATER - 50 ML IVPB SCH (11:09)
[2017-06-17] MEDS: DULoxetine HCL 30 MG CAPSULE.DR (FP) PO SCH (11:09)
[2017-06-17] MEDS: amLODIPine BESYLATE 10 MG TABLET (FP) PO SCH (11:09)
[2017-06-17] MEDS: OXYBUTYNIN CHLORIDE 5 MG TABLET PO SCH ×2 (11:10→22:33)
[2017-06-17] MEDS ORDERED: PT OWN MED DRAWER 7, Y5N ONE ×3 (11:11→22:30)
[2017-06-17] MEDS: BUDESONIDE/FORMETEROL FUMARATE 160/4.5 mcg INHALER IH SCH ×2 (11:13→22:33)
[2017-06-17 11:18] LABS: ANION GAP 10 (8-16); BLOOD UREA NITROGEN 10 mg/dL (7-18); CALCIUM 8.2 mg/dL (8.5-10.1); CO2 25 mmol/L (21-32); CREATININE 0.6 mg/dL (0.55-1.02); GLUCOSE,RANDOM 92 mg/dL (74-106)
--- NOTE | 2017-06-17 14:52 | PN ---
Teaching Attending Note Name of Resident: Nohemi Balderrama ATTENDING PHYSICIAN STATEMENT I saw and evaluated the patient. I reviewed the resident's note and discussed the case with the resident. I agree with the resident's findings and plan as documented. SUBJECTIVE:asymptomatic. 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 Generalized weakness- likely due to UTI and age progression. PT assessment. only able to walk 10 ft. agreeable to [facility] 2. UTI- on ceftriaxone day 2. f/u Cx 3. HTN- improved. cont current management 4. COPD- no signs of acute exacerbation 5.Hypothyroid- cont Lt4 6. DVT ppx- hep sq 7.PT eval in the AM. may benefit from [facility]. spoke with daughter present at bedside. agrees with plan.
--- NOTE | 2017-06-17 17:54 | PN ---
Physical Exam: SUBJECTIVE: Patient seen and examined. She is feeling good today, complaining of weakness that is present foe a week. Denies fever, chills, abdominal pain, dysuria. OBJECTIVE: Vital Signs Period Temp Pulse Resp BP Sys/Richardson Pulse Ox Last 24 Hr 98.0 F-98.7 F 60-86 15-20 122-146/60-74 97-98 GENERAL: The patient is awake, alert, and fully oriented, in no acute distress. HEAD: Normal with no signs of trauma. EYES: extraocular movements intact, sclera anicteric, conjunctiva clear. ENT: oropharynx clear without exudates, moist mucous membranes, missing teeth, no dentures. NECK: Trachea midline, full range of motion, supple. LUNGS: Breath sounds equal, clear to auscultation bilaterally, no wheezes, no crackles, no accessory muscle use. HEART: Regular rate and rhythm, S1, S2 without murmur, rub or gallop. ABDOMEN: Soft, nontender, nondistended, normoactive bowel sounds, no guarding, no rebound, no hepatosplenomegaly, no masses. EXTREMITIES: 2+ pulses, warm, no edema. NEUROLOGICAL: Normal speech, no facial asymmetry, gait not observed. PSYCH: Normal mood, normal affect. SKIN: Warm, dry, normal turgor, no rashes. Laboratory Results - last 24 hr 06/17/17 06/17/17 06:00 06:00 WBC 10.1 H RBC 3.47 L Hgb 10.4 L Hct 31.3 L MCV 90.2 MCH 29.9 MCHC 33.1 RDW 15.5 Plt Count 315 MPV 8.9 Neutrophils % 66.6 Lymphocytes % 19.3 Monocytes % 9.5 Eosinophils % 3.7 Basophils % 0.9 Sodium 140 Potassium 4.2 Chloride 105 Carbon Dioxide 25 Anion Gap 10 BUN 10 Creatinine 0.6 Random Glucose 92 Calcium 8.2 L Active Medications Generic Name Dose Route Start Last Admin Trade Name Freq PRN Reason Stop Dose Admin Albuterol/Ipratropium 1 amp 06/16/17 08:00 06/17/17 16:59 Duoneb - NEB 1 amp RQID YNES Administration Amlodipine Besylate 10 mg 06/17/17 10:00 06/17/17 11:09 Norvasc - PO 10 mg DAILY YNES Administration Budesonide/Formoterol Fumarate 1 puff 06/16/17 10:00 06/17/17 11:13 Symbicort 160/4.5mcg - IH 1 puff BID YNES Administration Duloxetine HCl 60 mg 06/16/17 10:00 06/17/17 11:09 Cymbalta - PO 60 mg DAILY YNES Administration Heparin Sodium (Porcine) 5,000 unit 06/16/17 06:00 06/17/17 15:11 Heparin - SQ 5,000 unit TID YNES Administration Ceftriaxone Sodium 1 gm/ 50 mls @ 100 mls/hr 06/17/17 10:00 06/17/17 11:09 Dextrose IVPB 100 mls/hr DAILY YNES Administration Ibuprofen 400 mg 06/16/17 16:12 Motrin - PO Q4H PRN FEVER Levothyroxine Sodium 112 mcg/ 137 mcg 06/16/17 07:00 06/17/17 06:58 Levothyroxine Sodium 25 mcg PO 137 mcg DAILY@0700 YNES Administration Lisinopril 10 mg 06/16/17 10:00 06/17/17 11:09 Prinivil PO 10 mg DAILY YNES Administration Mirtazapine 7.5 mg 06/16/17 22:00 06/16/17 21:30 Remeron - PO 7.5 mg HS YNES Administration Montelukast Sodium 10 mg 06/16/17 22:00 06/16/17 21:31 Singulair - PO 10 mg HS YNES Administration Non-Formulary Medication 50 mg 06/16/17 10:00 Mirabegron [Myrbetriq] PO DAILY YNES Oxybutynin Chloride 5 mg 06/16/17 10:00 06/17/17 11:10 Ditropan - PO 5 mg BID YNES Administration ASSESSMENT/PLAN: The patient is 87 yo female with PMH COPD, HTN, B/L hip replacement, hypothyroid , R lung ca s/p resection presented with with a week of generalized weakness Generalized weakness -likely due to UTI, positive UA, -PT evaluation UTI: 3+ Leuk est and 72 WBC - continue Ceftriaxone, today day 2. -f/u urine culture HTN -cont Lisinopril 10 mg qf and Norvasc 10 mg qd Depression: -cont Rameron 7.5 mg HS COPD: -continue Duonebs and Singulair -no signs of acute exacerbation -not on oxygen, Oxygen Sat 93% on RA Hypothyroidism: cont Levothyroxine 137 mcg DVT ppx- hep sq Disposition: PT eval in the AM, may benefit from [facility], discussed with the patient and her daughter. Problem List - Problems (1) UTI (urinary tract infection) Code(s): N39.0 - URINARY TRACT INFECTION, SITE NOT SPECIFIED (2) Weakness generalized Code(s): R53.1 - WEAKNESS (3) Lung mass Code(s): R91.8 - OTHER NONSPECIFIC ABNORMAL FINDING OF LUNG FIELD (4) Pneumonia Code(s): J18.9 - PNEUMONIA, UNSPECIFIED ORGANISM (5) COPD exacerbation Code(s): J44.1 - CHRONIC OBSTRUCTIVE PULMONARY DISEASE W (ACUTE) EXACERBATION (6) Depression Code(s): F32.9 - MAJOR DEPRESSIVE DISORDER, SINGLE EPISODE, UNSPECIFIED (7) HTN (hypertension) Code(s): I10 - ESSENTIAL (PRIMARY) HYPERTENSION (8) Hypothyroid Code(s): E03.9 - HYPOTHYROIDISM, UNSPECIFIED Visit type - Emergency Visit Emergency Visit: Yes ED Registration Date: 06/17/17 Care time: The patient presented to the Emergency Department on the above date and was hospitalized for further evaluation of their emergent condition. - New Patient This patient is new to me today: Yes Date on this admission: 06/17/17 - Critical Care Critical Care patient: No - Discharge Referral Referred to [facility] Med P.C.: No
--- NOTE | 2017-06-17 21:45 | EKG ---
Test Reason : Blood Pressure : / mmHG Vent. Rate : 071 BPM Atrial Rate : 071 BPM P-R Int : 158 ms QRS Dur : 122 ms QT Int : 398 ms P-R-T Axes : 051 -23 030 degrees QTc Int : 432 ms NORMAL SINUS RHYTHM RIGHT BUNDLE BRANCH BLOCK ABNORMAL ECG WHEN COMPARED WITH ECG OF 30-APR-2017 02:05, COMPARED TO EKG NO SIGNIFICANT CHANGE IS FOUND Confirmed by JES DYSON MD ([id number]) on 06/17/2017 9:45:11 PM Referred By: Confirmed By:JES DYSON MD
[2017-06-17] MEDS: MONTELUKAST NA 10 MG TABLET PO SCH (22:32)
[2017-06-17] MEDS: MIRTAZAPINE 15 MG TABLET (FP) PO SCH (22:32)
[2017-06-18] MEDS ORDERED: PT OWN MED DRAWER 7, Y5N ONE ×4 (05:56→22:33)
[2017-06-18] MEDS: HEPARIN NA (PORCINE) 5,000 UNITS/ML 1ML VIAL SQ SCH ×3 (06:12→21:48)
[2017-06-18] MEDS: LEVOTHYROXINE 112 MCG, LEVOTHYROXINE 25 MCG PO SCH (06:12)
--- NOTE | 2017-06-18 06:33 | PN ---
Physical Exam: SUBJECTIVE: Patient seen and examined - A&oX3, hemo stable, Afebrile, no pain, OOB w/ assistance; no f/c/v/n/d; endorses general fatigue, worried that she has become deconditioned laying in bed; No new symptoms to report OBJECTIVE: Vital Signs Intake & Output 06/15/17 06/16/17 06/17/17 06/18/17 23:59 23:59 23:59 23:59 Intake Total 1460 1480 100 Balance 1460 1480 100 Weight 73 kg 63.957 kg Period Temp Pulse Resp BP Sys/Richardson Pulse Ox Last 24 Hr 98.0 F-98.7 F 60-92 15-18 122-152/61-77 95-98 GENERAL: Elderly woman, AOx3, in NAD HEAD: Normal with no signs of trauma. EYES: PERRL, extraocular movements intact, sclera anicteric, conjunctiva clear. No ptosis. ENT: Ears normal, nares patent, oropharynx clear without exudates, moist mucous membranes. NECK: Trachea midline, full range of motion, supple. LUNGS: Breath sounds equal, clear to auscultation bilaterally, no wheezes, no crackles, no accessory muscle use. HEART: Regular rate and rhythm, S1, S2 without murmur, rub or gallop. ABDOMEN: Soft, nontender, nondistended, normoactive bowel sounds, no guarding, no rebound, no hepatosplenomegaly, no masses. EXTREMITIES: BL statis dermatitis up to superior ankle margin BL. Otherwise, 2+ pulses, warm, well-perfused, no edema. NEUROLOGICAL: Cranial nerves II through XII grossly intact. Normal speech, gait not observed. PSYCH: Normal mood, normal affect. pleasant SKIN: Warm, dry, normal turgor, no rashes or lesions noted Laboratory Results - last 24 hr CBC, BMP 06/18/17 07:55 06/18/17 07:55 06/17/17 06:00 06/17/17 06:00 06/17/17 06/17/17 06:00 06:00 WBC 10.1 H RBC 3.47 L Hgb 10.4 L Hct 31.3 L MCV 90.2 MCH 29.9 MCHC 33.1 RDW 15.5 Plt Count 315 MPV 8.9 Neutrophils % 66.6 Lymphocytes % 19.3 Monocytes % 9.5 Eosinophils % 3.7 Basophils % 0.9 Sodium 140 Potassium 4.2 Chloride 105 Carbon Dioxide 25 Anion Gap 10 BUN 10 Creatinine 0.6 Random Glucose 92 Calcium 8.2 L Active Medications Generic Name Dose Route Start Last Admin Trade Name Freq PRN Reason Stop Dose Admin Albuterol/Ipratropium 1 amp 06/16/17 08:00 06/17/17 20:15 Duoneb - NEB 1 amp RQID YNES Administration Amlodipine Besylate 10 mg 06/17/17 10:00 06/17/17 11:09 Norvasc - PO 10 mg DAILY YNES Administration Budesonide/Formoterol Fumarate 1 puff 06/16/17 10:00 06/17/17 22:33 Symbicort 160/4.5mcg - IH 1 puff BID YNES Administration Duloxetine HCl 60 mg 06/16/17 10:00 06/17/17 11:09 Cymbalta - PO 60 mg DAILY YNES Administration Heparin Sodium (Porcine) 5,000 unit 06/16/17 06:00 06/18/17 06:12 Heparin - SQ 5,000 unit TID YNES Administration Ceftriaxone Sodium 1 gm/ 50 mls @ 100 mls/hr 06/17/17 10:00 06/17/17 11:09 Dextrose IVPB 100 mls/hr DAILY YNES Administration Ibuprofen 400 mg 06/16/17 16:12 Motrin - PO Q4H PRN FEVER Levothyroxine Sodium 112 mcg/ 137 mcg 06/16/17 07:00 06/18/17 06:12 Levothyroxine Sodium 25 mcg PO 137 mcg DAILY@0700 YNES Administration Lisinopril 10 mg 06/16/17 10:00 06/17/17 11:09 Prinivil PO 10 mg DAILY YNES Administration Mirtazapine 7.5 mg 06/16/17 22:00 06/17/17 22:32 Remeron - PO 7.5 mg HS YNES Administration Montelukast Sodium 10 mg 06/16/17 22:00 06/17/17 22:32 Singulair - PO 10 mg HS YNES Administration Non-Formulary Medication 50 mg 06/16/17 10:00 Mirabegron [Myrbetriq] PO DAILY [facility] Oxybutynin Chloride 5 mg 06/16/17 10:00 06/17/17 22:33 Ditropan - PO 5 mg BID YNES Administration Microbiology 06/16/17 00:33 Urine - Urine Clean Catch Urine Culture - Preliminary Lactose Fermenting Neg Bacilli CXR 06/16 - scoliosis, cardiomaegaly, compressed vertebral bodies, coarse lung changes, shoulder degenerative changes ASSESSMENT/PLAN: 87 yo female with PMH COPD, HTN, B/L hip replacement, hypothyroid, R lung ca s/ p resection presented with with a week of generalized weakness #Generalized weakness - secondary to UTI, deconditioning -likely secondary to UTI - PT evaluation - will require rolling walker - plan for short term [facility] #UTI: 3+ Leuk est and 72 WBC; urine culture + ESBL GNR LF; - D/c rocephin as no longer symptom - ibuprofen for pain control, fever - ID consulted - Repeat UA, urine culture - Ditropan #HTN -Lisinopril 10 mg qf -Norvasc 10 mg qd #Depression: -Rameron 7.5 mg HS - c/w cymbalta #COPD- -continue Duonebs and Singulair - symbicort - O2 support as needed #Hypothyroidism: -c/w levothyroxine #DVT ppx - HSQ Disposition: - Plan for [facility]. Likely d/c tomorrow. DEANDRE sent. Plan discussed with attending, Dr. marge Garcia, PGY1 Visit type - Emergency Visit Emergency Visit: Yes ED Registration Date: 06/17/17 Care time: The patient presented to the Emergency Department on the above date and was hospitalized for further evaluation of their emergent condition. - New Patient This patient is new to me today: Yes Date on this admission: 06/18/17 - Critical Care Critical Care patient: No
[2017-06-18 08:16] LABS: BASO % 1.1 % (0-2.0); EOS % 4.1 % (0-4.5); HEMATOCRIT 33.4 % (32.4-45.2); LYMPH % 25.4 % (8-40); MCH 29.8 pg (25.7-33.7); MEAN CELL VOLUME 90.3 fl (80-96); MEAN PLT VOLUME 8.9 fl (7.5-11.1); MONO % 9.2 % (3.8-10.2); NEUT % 60.2 % (42.8-82.8); PLATELET COUNT 313 K/MM3 (134-434); RBC 3.69 M/mm3 (3.60-5.2); RDW 15.8 % (11.6-15.6); WHITE BLOOD COUNT 8.5 K/mm3 (4.0-10.0)
[2017-06-18] MEDS: ALBUTEROL SO4 2.5/IPRATROPIUM 0.5 INH SOL 3 ML VIAL.NEB. NEB SCH ×4 (08:19→20:59)
[2017-06-18 08:50] LABS: ALBUMIN 2.7 g/dl (3.4-5.0); ANION GAP 9 (8-16); BLOOD UREA NITROGEN 12 mg/dL (7-18); CALCIUM 8.2 mg/dL (8.5-10.1); CHLORIDE 101 mmol/L (98-107); CO2 30 mmol/L (21-32); GLUCOSE,RANDOM 84 mg/dL (74-106); POTASSIUM 4.2 mmol/L (3.5-5.1); SGOT/AST 10 U/L (15-37); SGPT/ALT 12 U/L (12-78); SODIUM 140 mmol/L (136-145)
[2017-06-18 08:52] LABS: ALK PHOS 56 U/L (45-117); BILIRUBIN,TOTAL 0.5 mg/dL (0.2-1.0); CREATININE 0.6 mg/dL (0.55-1.02); TOT PROT 5.9 g/dl (6.4-8.2)
[2017-06-18] MEDS ORDERED: DEXTROSE 5%-WATER - 50 ML IVPB ONE (11:09)
[2017-06-18] MEDS ORDERED: cefTRIAXone SODIUM 1 GM VIAL ONE (11:09)
[2017-06-18] MEDS: CEFTRIAXONE 1 GM in DEXTROSE 5%-WATER - 50 ML IVPB SCH (11:12)
[2017-06-18] MEDS: amLODIPine BESYLATE 10 MG TABLET (FP) PO SCH (11:13)
[2017-06-18] MEDS: OXYBUTYNIN CHLORIDE 5 MG TABLET PO SCH ×2 (11:13→21:47)
[2017-06-18] MEDS: DULoxetine HCL 30 MG CAPSULE.DR (FP) PO SCH (11:13)
[2017-06-18] MEDS: BUDESONIDE/FORMETEROL FUMARATE 160/4.5 mcg INHALER IH SCH ×2 (11:13→21:49)
[2017-06-18] MEDS: LISINOPRIL 10 MG TABLET (FP) PO SCH (11:13)
--- NOTE | 2017-06-18 13:04 | PN ---
Teaching Attending Note Name of Resident: Burton Garcia ATTENDING PHYSICIAN STATEMENT I saw and evaluated the patient. I reviewed the resident's note and discussed the case with the resident. I agree with the resident's findings and plan as documented. SUBJECTIVE:no complaints. 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 Generalized weakness- likely due to UTI and age progression. PT assessment. only able to walk 10 ft. agreeable to [facility] 2. UTI- on ceftriaxone day 3. f/u Cx 3. HTN- improved. cont current management 4. COPD- no signs of acute exacerbation 5.Hypothyroid- cont Lt4 6. DVT ppx- hep sq 7.awaiting placement in [facility]
--- NOTE | 2017-06-18 15:06 | PN ---
Progress Note (short form) - Note Progress Note: ID Consult dictated + Urine c/s ESBL ? significance Presently asymptomatic Would D/C antibiotics, repeat U/A, urine c/s
[2017-06-18] MEDS ORDERED: PNEUMOC 13-VAL CONJ-DIP CRM/PF 0.5 ML DISP.SYRIN IM ONE (16:15)
--- NOTE | 2017-06-18 18:50 | CONS ---
DATE OF CONSULTATION: INFECTIOUS DISEASE CONSULTATION HISTORY OF PRESENT ILLNESS: The patient is an 87-year-old female who is evaluated for positive urine culture ESBL. She was admitted from assisted living with the complaints of generalized weakness, fatigue, and inability to arise from a seated position. She had had this for some time, however noted worsening over the past 2-3 days. She was evaluated at [facility] where urinalysis showed 3+ leukocyte esterase and 72 white cells. She was empirically treated with ceftriaxone for urinary tract infection. Urine culture is now positive for ESBL. The patient is awake and alert. She offers no complaints at this time. She denies any urinary tract symptoms. She denies any dysuria or hematuria. No complaints of urgency or frequency. Denies suprapubic or flank pain. She has been afebrile. White blood cell count is normal. PAST MEDICAL HISTORY: Positive for COPD, hypertension, hypothyroidism, depression, history of lung mass. PAST SURGICAL HISTORY: Status post right lung resection, bilateral total hip replacements, and thyroidectomy. ALLERGIES: SULFA and PENICILLIN; patient is unaware of the nature of the SULFA allergy; reports rash with PENICILLIN. MEDICATION: Includes Cymbalta, Remeron, Singulair, Mycostatin, Norvasc, Symbicort, Synthroid, lisinopril, prednisone. SOCIAL HISTORY: Assisted living. Denies tobacco or alcohol use. SYSTEMS REVIEW: Neurologic: No loss of consciousness, seizure activity, or focal weakness. Cardiac: Negative chest pain or palpitations. Respiratory: Negative cough or sputum production. Gastrointestinal: Negative vomiting or diarrhea. Genitourinary: As per HPI. LABORATORY DATA: White count 8.5, hemoglobin 33.4, platelet count 313, creatinine 0.6. Urinalysis: 72 white cells, urine culture positive for ESBL. PHYSICAL EXAMINATION: General: She is awake and alert in bed. Vital signs: Temperature 98.2, blood pressure 152/77, pulse 77 regular, respirations 15 per minute. HEENT: Sclerae anicteric. Cardiovascular: Heart sounds S1, S2. Respiratory: Lungs clear. Abdomen: Soft. No suprapubic or flank tenderness. Extremities: Negative for edema. IMPRESSION: 1. Positive urine culture extended-spectrum beta-lactamase of uncertain significance. 2. PENICILLIN and SULFA allergies. Presently patient is asymptomatic and would discontinue antibiotics, repeat urinalysis and urine culture. Thank you for the kind referral. HANANE AMANDA M.D. STEVE/[id number]
[2017-06-18] MEDS: MONTELUKAST NA 10 MG TABLET PO SCH (21:47)
[2017-06-18] MEDS: MIRTAZAPINE 15 MG TABLET (FP) PO SCH (21:47)
[2017-06-19] MEDS ORDERED: PT OWN MED DRAWER 7, Y5N ONE ×3 (05:13→20:12)
--- NOTE | 2017-06-19 05:48 | PN ---
Physical Exam: SUBJECTIVE: Patient seen and examined by me this AM - No overnight events; afebrile, hemo stable; increased UOP per nursing; For likely d/c today to short term rehab - Refused to talk in AM, wanted to sleep; During re-rounds, pt denied all symptoms, insistent on discharge; awaiting placement for [facility] OBJECTIVE: Vital Signs Intake & Output 06/16/17 06/17/17 06/18/17 06/19/17 23:59 23:59 23:59 23:59 Intake Total 1460 1480 1130 Balance 1460 1480 1130 Weight 63.957 kg Period Temp Pulse Resp BP Sys/Richardson Pulse Ox Last 24 Hr 98.2 F-99.4 F 80-95 20-20 109-127/58-71 93-95 GENERAL: Elderly woman, AOx3, in NAD HEAD: Normal with no signs of trauma.. ENT: Ears normal, nares patent, oropharynx clear without exudates, moist mucous membranes. NECK: Trachea midline, full range of motion, supple. LUNGS: Breath sounds equal, clear to auscultation bilaterally, no wheezes, no crackles, no accessory muscle use. HEART: Regular rate and rhythm, S1, S2 without murmur, rub or gallop. ABDOMEN: Soft, nontender, nondistended, normoactive bowel sounds, no guarding, no rebound, no hepatosplenomegaly, no masses. EXTREMITIES: BL statis dermatitis up to superior ankle margin BL. Otherwise, 2+ pulses, warm, well-perfused, no edema. NEUROLOGICAL: Cranial nerves II through XII grossly intact. Normal speech, gait not observed. PSYCH: Normal mood, normal affect. pleasant SKIN: Warm, dry, normal turgor, no rashes or lesions noted Laboratory Results - last 24 hr CBC, BMP CBC, BMP 06/19/17 06:35 06/19/17 06:35 06/18/17 07:55 06/18/17 07:55 06/18/17 06/18/17 07:55 07:55 WBC 8.5 RBC 3.69 Hgb 11.0 Hct 33.4 MCV 90.3 MCH 29.8 MCHC 33.0 RDW 15.8 H Plt Count 313 MPV 8.9 Neutrophils % 60.2 Lymphocytes % 25.4 D Monocytes % 9.2 Eosinophils % 4.1 Basophils % 1.1 Sodium 140 Potassium 4.2 Chloride 101 Carbon Dioxide 30 Anion Gap 9 BUN 12 Creatinine 0.6 Creat Clearance w eGFR > 60 Random Glucose 84 Calcium 8.2 L Total Bilirubin 0.5 D AST 10 L ALT 12 Alkaline Phosphatase 56 Total Protein 5.9 L Albumin 2.7 L Active Medications Generic Name Dose Route Start Last Admin Trade Name Freq PRN Reason Stop Dose Admin Albuterol/Ipratropium 1 amp 06/16/17 08:00 06/18/17 20:59 Duoneb - NEB 1 amp RQID YNES Administration Amlodipine Besylate 10 mg 06/17/17 10:00 06/18/17 11:13 Norvasc - PO 10 mg DAILY YNES Administration Budesonide/Formoterol Fumarate 1 puff 06/16/17 10:00 06/18/17 21:49 Symbicort 160/4.5mcg - IH 1 puff BID YNES Administration Duloxetine HCl 60 mg 06/16/17 10:00 06/18/17 11:13 Cymbalta - PO 60 mg DAILY YNES Administration Heparin Sodium (Porcine) 5,000 unit 06/16/17 06:00 06/18/17 21:48 Heparin - SQ 5,000 unit TID YNES Administration Ibuprofen 400 mg 06/16/17 16:12 06/18/17 21:48 Motrin - PO 400 mg Q4H PRN Administration FEVER Levothyroxine Sodium 112 mcg/ 137 mcg 06/16/17 07:00 06/18/17 06:12 Levothyroxine Sodium 25 mcg PO 137 mcg DAILY@0700 YNES Administration Lisinopril 10 mg 06/16/17 10:00 06/18/17 11:13 Prinivil PO 10 mg DAILY YNES Administration Mirtazapine 7.5 mg 06/16/17 22:00 06/18/17 21:47 Remeron - PO 7.5 mg HS YNES Administration Montelukast Sodium 10 mg 06/16/17 22:00 06/18/17 21:47 Singulair - PO 10 mg HS YNES Administration Non-Formulary Medication 50 mg 06/16/17 10:00 Mirabegron [Myrbetriq] PO DAILY YNES Oxybutynin Chloride 5 mg 06/16/17 10:00 06/18/17 21:47 Ditropan - PO 5 mg BID YNES Administration Microbiology 06/16/17 00:33 Urine - Urine Clean Catch Urine Culture - Final Escherichia Coli Esbl Regulatory Submissions Associate CXR 06/16 - scoliosis, cardiomaegaly, compressed vertebral bodies, coarse lung changes, shoulder degenerative changes ASSESSMENT/PLAN: 87 yo female with PMH COPD, HTN, B/L hip replacement, hypothyroid, R lung ca s/ p resection presented with with a week of generalized weakness. Awaiting placement at [facility] clinically improved. Repeat UA suggestive of UTI. Will d/c on po Fosfomycin per ID recs. #Generalized weakness - secondary to UTI, deconditioning -likely secondary to UTI - Walked 25 ft w/ PT today; will require rehab - plan for short term [facility]; will likely d/c tomorrow if pt accepted and amenable #UTI: 3+ Leuk est and 72 WBC; urine culture + ESBL GNR LF; Repeat UA with 3+ leuk esterase, WBC 470 - started on Fosfomycin for 3 days PO per ID recs - ibuprofen for pain control, fever - ID consulted, recs appreciated - f/u urine cultures - Ditropan #HTN -Lisinopril 10 mg qf -Norvasc 10 mg qd #Depression: -Rameron 7.5 mg HS - c/w cymbalta #COPD- -continue Duonebs and Singulair - symbicort - O2 support as needed #Hypothyroidism: -c/w levothyroxine #DVT ppx - HSQ Disposition: -Plan for [facility] Will d/c tomorrow. Plan discussed with attending, Dr. Abdulaziz Garcia, PGY1 Visit type - Emergency Visit Emergency Visit: Yes ED Registration Date: 06/17/17 Care time: The patient presented to the Emergency Department on the above date and was hospitalized for further evaluation of their emergent condition. - New Patient This patient is new to me today: No - Critical Care Critical Care patient: No
[2017-06-19] MEDS: HEPARIN NA (PORCINE) 5,000 UNITS/ML 1ML VIAL SQ SCH ×3 (06:15→21:54)
[2017-06-19] MEDS: LEVOTHYROXINE 112 MCG, LEVOTHYROXINE 25 MCG PO SCH (06:16)
[2017-06-19] MEDS: ALBUTEROL SO4 2.5/IPRATROPIUM 0.5 INH SOL 3 ML VIAL.NEB. NEB SCH ×4 (07:50→20:50)
[2017-06-19 07:58] LABS: HEMATOCRIT 33.9 % (32.4-45.2); HEMOGLOBIN 11.2 GM/dL (10.7-15.3); MCH 29.9 pg (25.7-33.7); MEAN CELL VOLUME 90.5 fl (80-96); MEAN PLT VOLUME 8.8 fl (7.5-11.1); PLATELET COUNT 317 K/MM3 (134-434); RBC 3.75 M/mm3 (3.60-5.2); RDW 15.8 % (11.6-15.6); WHITE BLOOD COUNT 8.2 K/mm3 (4.0-10.0)
[2017-06-19 08:12] LABS: ANION GAP 2 (8-16); BLOOD UREA NITROGEN 12 mg/dL (7-18); CALCIUM 8.4 mg/dL (8.5-10.1); CHLORIDE 105 mmol/L (98-107); CO2 31 mmol/L (21-32); CREATININE 0.6 mg/dL (0.55-1.02); GLUCOSE,RANDOM 88 mg/dL (74-106); POTASSIUM 4.3 mmol/L (3.5-5.1); SODIUM 138 mmol/L (136-145)
--- NOTE | 2017-06-19 09:03 | PN ---
Teaching Attending Note Name of Resident: Burton Garcia ATTENDING PHYSICIAN STATEMENT I saw and evaluated the patient. I reviewed the resident's note and discussed the case with the resident. I agree with the resident's findings and plan as documented with exceptions mentioned below. SUBJECTIVE: Patient seen and examined. no complaints, denies any abdominal or urinary symptoms, pain, fevers or chills. Weakness improved but still present. OBJECTIVE: Vital Signs Period Temp Pulse Resp BP Sys/Richardson Pulse Ox Last 24 Hr 97.8 F-99.4 F 76-95 20-20 109-138/58-76 93 Intake & Output 06/16/17 06/17/17 06/18/17 06/19/17 23:59 23:59 23:59 23:59 Intake Total 1460 1480 1130 100 Balance 1460 1480 1130 100 Weight 141 lb General sitting in bed in no acute distress Chest CTAB, no rales or wheezing Abdomen soft, NT, ND, no suprapubic or CVA tenderness Extremities no edema Home Medication List Medication Instructions Recorded Confirmed Type Duloxetine HCl [Cymbalta] 60 mg PO DAILY 04/30/17 06/15/17 History Mirabegron [Myrbetriq] 50 mg PO DAILY 04/30/17 06/15/17 History Mirtazapine [Remeron -] 7.5 mg PO DAILY 04/30/17 06/15/17 History Montelukast Sodium [Singulair] 10 mg PO DAILY 04/30/17 06/15/17 History Nystatin Cream [Mycostatin Cream -] 1 applic TP PRN 04/30/17 06/15/17 History Hypromellose 0.5% Opth Soln 1 drop OU TID 06/15/17 06/15/17 History [Artificial Tears] Polyethylene Glycol 3350 1,700 gm PO DAILY 06/15/17 06/15/17 History [Laxaclear] Active Medications Generic Name Dose Route Start Last Admin Trade Name Freq PRN Reason Stop Dose Admin Albuterol/Ipratropium 1 amp 06/16/17 08:00 06/18/17 20:59 Duoneb - NEB 1 amp RQID YNES Administration Amlodipine Besylate 10 mg 06/17/17 10:00 06/18/17 11:13 Norvasc - PO 10 mg DAILY YNES Administration Budesonide/Formoterol Fumarate 1 puff 06/16/17 10:00 06/18/17 21:49 Symbicort 160/4.5mcg - IH 1 puff BID YNES Administration Duloxetine HCl 60 mg 06/16/17 10:00 06/18/17 11:13 Cymbalta - PO 60 mg DAILY YNES Administration Heparin Sodium (Porcine) 5,000 unit 06/16/17 06:00 06/19/17 06:15 Heparin - SQ 5,000 unit TID YNES Administration Ibuprofen 400 mg 06/16/17 16:12 06/18/17 21:48 Motrin - PO 400 mg Q4H PRN Administration FEVER Levothyroxine Sodium 112 mcg/ 137 mcg 06/16/17 07:00 06/19/17 06:16 Levothyroxine Sodium 25 mcg PO 137 mcg DAILY@0700 YNES Administration Lisinopril 10 mg 06/16/17 10:00 06/18/17 11:13 Prinivil PO 10 mg DAILY YNES Administration Mirtazapine 7.5 mg 06/16/17 22:00 06/18/17 21:47 Remeron - PO 7.5 mg HS YNES Administration Montelukast Sodium 10 mg 06/16/17 22:00 06/18/17 21:47 Singulair - PO 10 mg HS YNES Administration Non-Formulary Medication 50 mg 06/16/17 10:00 Mirabegron [Myrbetriq] PO DAILY YNES Oxybutynin Chloride 5 mg 06/16/17 10:00 06/18/17 21:47 Ditropan - PO 5 mg BID YNES Administration Laboratory Results - last 24 hr 06/19/17 06/19/17 06:35 06:35 WBC 8.2 RBC 3.75 Hgb 11.2 Hct 33.9 MCV 90.5 MCH 29.9 MCHC 33.0 RDW 15.8 H Plt Count 317 MPV 8.8 Sodium 138 Potassium 4.3 Chloride 105 Carbon Dioxide 31 Anion Gap 2 L BUN 12 Creatinine 0.6 Random Glucose 88 Calcium 8.4 L Microbiology 06/16/17 00:33 Urine - Urine Clean Catch Urine Culture - Final Escherichia Coli Esbl Lab Head ASSESSMENT AND PLAN: 87yo F wtih PMH COPD, HTN, B/L hip replacement, hypothyroid and suspected R lung ca s/p resection presented to the Er with generalized weakness -Generalized weakness, ?Lower uncomplicated UTI vs age progression/ deconditioning -?Lower uncomplicated UTI vs asymptomatic bacteruria -ESBL in urine cultures -HTN -COPD -Hypothyroidism -H/o ?lung cancer s/p resection Plan: S/p 3 days ceftriaxone, urine cultures with ESBL. ID input appreciated. Repeat urinalysis with 470 WBC, follow up urine cultures. Discuss with ID. PT eval noted, rec [facility], discuss with patient Continue levothyroxine/Lisinopril/amlodipine/inhalers DVTPPX with heparin Dispo pending ID input and [facility] bed arrangements. Plan discussed with patient and all questions answered
[2017-06-19] MEDS ORDERED: ACETAMINOPHEN 325 MG TABLET (FP) PO PRN (09:04)
[2017-06-19 10:23] LABS: URINE APPEARANCE CLOUDY; URINE BILIRUBIN NEGATIVE (<2.0 mg/dL); URINE BLOOD 1+ (NEGATIVE); URINE COLOR YELLOW; URINE GLUCOSE (UA) NEGATIVE (NEGATIVE); URINE KETONE NEGATIVE (NEGATIVE); URINE NITRITE NEGATIVE (NEGATIVE); URINE PROTEIN NEGATIVE (NEGATIVE); URINE UROBILINOGEN NEGATIVE mg/dL (0.2-1.0)
[2017-06-19 10:27] LABS: URINE LEUK ESTERASE 3+ (NEGATIVE)
[2017-06-19] MEDS: amLODIPine BESYLATE 10 MG TABLET (FP) PO SCH (10:50)
[2017-06-19] MEDS: DULoxetine HCL 30 MG CAPSULE.DR (FP) PO SCH (10:50)
[2017-06-19] MEDS: LISINOPRIL 10 MG TABLET (FP) PO SCH (10:50)
[2017-06-19] MEDS: OXYBUTYNIN CHLORIDE 5 MG TABLET PO SCH ×2 (10:50→21:53)
[2017-06-19] MEDS: BUDESONIDE/FORMETEROL FUMARATE 160/4.5 mcg INHALER IH SCH ×2 (10:51→21:55)
[2017-06-19 11:45] LABS: EPI CELLS RARE /HPF (FEW)
--- NOTE | 2017-06-19 15:53 | PN ---
Progress Note, Physician History of Present Illness: Denies urinary tract complaints No c/o dysuria No suprapubic or flank pain Afebrile WBC WNL Repeat U/A many WBC , c/s pending - Current Medication List Current Medications: Active Medications Acetaminophen (Tylenol -) 650 mg PO Q4H PRN PRN Reason: PAIN Albuterol/Ipratropium (Duoneb -) 1 amp NEB RQID [facility] Last Admin: 06/19/17 15:30 Dose: Not Given Amlodipine Besylate (Norvasc -) 10 mg PO DAILY [facility] Last Admin: 06/19/17 10:50 Dose: 10 mg Budesonide/Formoterol Fumarate (Symbicort 160/4.5mcg -) 1 puff IH BID [facility] Last Admin: 06/19/17 10:51 Dose: 1 puff Duloxetine HCl (Cymbalta -) 60 mg PO DAILY [facility] Last Admin: 06/19/17 10:50 Dose: 60 mg Heparin Sodium (Porcine) (Heparin -) 5,000 unit SQ TID [facility] Last Admin: 06/19/17 15:38 Dose: Not Given Levothyroxine Sodium 112 mcg/ (Levothyroxine Sodium 25 mcg) 137 mcg PO DAILY@ 0700 [facility] Last Admin: 06/19/17 06:16 Dose: 137 mcg Lisinopril (Prinivil) 10 mg PO DAILY [facility] Last Admin: 06/19/17 10:50 Dose: 10 mg Mirtazapine (Remeron -) 7.5 mg PO [facility] Last Admin: 06/18/17 21:47 Dose: 7.5 mg Montelukast Sodium (Singulair -) 10 mg PO [facility] Last Admin: 06/18/17 21:47 Dose: 10 mg Non-Formulary Medication (Mirabegron [Myrbetriq]) 50 mg PO DAILY [facility] Oxybutynin Chloride (Ditropan -) 5 mg PO BID [facility] Last Admin: 06/19/17 10:50 Dose: 5 mg - Objective Vital Signs: Vital Signs Temperature 98.3 F 06/19/17 14:17 Pulse Rate 74 06/19/17 14:17 Respiratory Rate 22 06/19/17 14:17 Blood Pressure 115/64 06/19/17 14:17 O2 Sat by Pulse Oximetry (%) 93 L 06/18/17 21:00 Constitutional: Yes: No Distress Eyes: Yes: Conjunctiva Clear Cardiovascular: Yes: Regular Rate and Rhythm, S1, S2 Respiratory: No: CTA Bilaterally Gastrointestinal: Yes: Normal Bowel Sounds, Soft. No: Tenderness Edema: Yes Edema: LLE: 1+, RLE: 1+ Labs: CBC, BMP 06/19/17 06:35 06/19/17 06:35 Assessment/Plan Pyuria, but no urinary tract symptoms + Urine c/s ESBL Will give Fosfomycin 3gm po x 1dose
[2017-06-19] MEDS: MIRTAZAPINE 15 MG TABLET (FP) PO SCH (21:54)
[2017-06-19] MEDS: MONTELUKAST NA 10 MG TABLET PO SCH (21:55)
[2017-06-20] MEDS ORDERED: PT OWN MED DRAWER 7, Y5N ONE ×4 (06:08→13:54)
--- NOTE | 2017-06-20 06:14 | PN ---
Physical Exam: SUBJECTIVE: Patient seen and examined by me this AM - No overnight event. Afebrile, hemo stable. Plan for d/c to [facility] today. Will send on PO abx for UTI, awaiting urine culture results. OBJECTIVE: Vital Signs Intake & Output 06/17/17 06/18/17 06/19/17 06/20/17 23:59 23:59 23:59 23:59 Intake Total 1480 1130 995 Balance 1480 1130 995 Period Temp Pulse Resp BP Sys/Richardson Pulse Ox Last 24 Hr 97.9 F-98.3 F 73-85 18-22 115-129/61-70 93-96 GENERAL: Elderly woman, AOx3, in NAD HEAD: Normal with no signs of trauma.. ENT: Ears normal, nares patent, oropharynx clear without exudates, moist mucous membranes. NECK: Trachea midline, full range of motion, supple. LUNGS: Breath sounds equal, clear to auscultation bilaterally, no wheezes, no crackles, no accessory muscle use. HEART: Regular rate and rhythm, S1, S2 without murmur, rub or gallop. ABDOMEN: Soft, nontender, nondistended, normoactive bowel sounds, no guarding, no rebound, no hepatosplenomegaly, no masses. EXTREMITIES: BL statis dermatitis up to superior ankle margin BL. Otherwise, 2+ pulses, warm, well-perfused, no edema. NEUROLOGICAL: Cranial nerves II through XII grossly intact. Normal speech, gait not observed. PSYCH: Normal mood, normal affect. pleasant SKIN: Warm, dry, normal turgor, no rashes or lesions noted Laboratory Results - last 24 hr CBC, BMP 06/19/17 06:35 06/19/17 06:35 06/19/17 06/19/17 06/19/17 06:35 06:35 09:28 WBC 8.2 RBC 3.75 Hgb 11.2 Hct 33.9 MCV 90.5 MCH 29.9 MCHC 33.0 RDW 15.8 H Plt Count 317 MPV 8.8 Sodium 138 Potassium 4.3 Chloride 105 Carbon Dioxide 31 Anion Gap 2 L BUN 12 Creatinine 0.6 Random Glucose 88 Calcium 8.4 L Urine Color Yellow Urine Appearance Cloudy Urine pH 7.0 Ur Specific [place] 1.006 Urine Protein Negative Urine Glucose (UA) Negative Urine Ketones Negative Urine Blood 1+ H Urine Nitrite Negative Urine Bilirubin Negative Urine Urobilinogen Negative Ur Leukocyte Esterase 3+ H Urine WBC (Auto) 470 Urine RBC (Auto) 4 Ur Epithelial Cells Rare Active Medications Generic Name Dose Route Start Last Admin Trade Name Cuca PRN Reason Stop Dose Admin Acetaminophen 650 mg 06/19/17 09:04 Tylenol - PO Q4H PRN PAIN Albuterol/Ipratropium 1 amp 06/16/17 08:00 06/19/17 20:50 Duoneb - NEB 1 amp RQID YNES Administration Amlodipine Besylate 10 mg 06/17/17 10:00 06/19/17 10:50 Norvasc - PO 10 mg DAILY YNES Administration Budesonide/Formoterol Fumarate 1 puff 06/16/17 10:00 06/19/17 21:55 Symbicort 160/4.5mcg - IH 1 puff BID YNES Administration Duloxetine HCl 60 mg 06/16/17 10:00 06/19/17 10:50 Cymbalta - PO 60 mg DAILY YNES Administration Heparin Sodium (Porcine) 5,000 unit 06/16/17 06:00 06/19/17 21:54 Heparin - SQ Not Given TID YNES Levothyroxine Sodium 112 mcg/ 137 mcg 06/16/17 07:00 06/19/17 06:16 Levothyroxine Sodium 25 mcg PO 137 mcg DAILY@0700 YNES Administration Lisinopril 10 mg 06/16/17 10:00 06/19/17 10:50 Prinivil PO 10 mg DAILY YNES Administration Mirtazapine 7.5 mg 06/16/17 22:00 06/19/17 21:54 Remeron - PO 7.5 mg HS YNES Administration Montelukast Sodium 10 mg 06/16/17 22:00 06/19/17 21:55 Singulair - PO 10 mg HS YNES Administration Non-Formulary Medication 50 mg 06/16/17 10:00 Mirabegron [Myrbetriq] PO DAILY [facility] Nonformular Med ( 1 each 06/19/17 16:00 Fosfomycin 3gm) PO 06/19/17 16:01 ONCE ONE Oxybutynin Chloride 5 mg 06/16/17 10:00 06/19/17 21:53 Ditropan - PO 5 mg BID YNES Administration Microbiology 06/16/17 00:33 Urine - Urine Clean Catch Urine Culture - Final Escherichia Coli Esbl Laboratory Sampler CXR 06/16 - scoliosis, cardiomaegaly, compressed vertebral bodies, coarse lung changes, shoulder degenerative changes ASSESSMENT/PLAN: 87 yo female with PMH COPD, HTN, B/L hip replacement, hypothyroid, R lung ca s/ p resection presented with with a week of generalized weakness. Awaiting placement at [facility], clinically improved. Repeat UA suggestive of UTI. Will d/c on po Fosfomycin per ID recs. #Generalized weakness - secondary to UTI, deconditioning -likely secondary to UTI - Walked 25 ft w/ PT today; will require rehab - plan for short term [facility]; will likely d/c tomorrow if pt accepted and amenable #UTI: 3+ Leuk est and 72 WBC; urine culture + ESBL GNR LF; Repeat UA with 3+ leuk esterase, WBC 470 - started on Fosfomycin for 3 days PO per ID recs - ibuprofen for pain control, fever - ID consulted, recs appreciated - f/u urine cultures - Ditropan #HTN -Lisinopril 10 mg qf -Norvasc 10 mg qd #Depression: -Rameron 7.5 mg HS - c/w cymbalta #COPD- -continue Duonebs and Singulair - symbicort - O2 support as needed #Hypothyroidism: -c/w levothyroxine #DVT ppx - HSQ Disposition: -Plan for [facility]. Will d/c tomorrow. Plan discussed with attending, Dr. Abdulaziz Garcia, PGY1
[2017-06-20] MEDS: HEPARIN NA (PORCINE) 5,000 UNITS/ML 1ML VIAL SQ SCH ×2 (06:29→13:38)
[2017-06-20] MEDS: LEVOTHYROXINE 112 MCG, LEVOTHYROXINE 25 MCG PO SCH (06:29)
[2017-06-20] MEDS: ALBUTEROL SO4 2.5/IPRATROPIUM 0.5 INH SOL 3 ML VIAL.NEB. NEB SCH ×3 (07:26→15:48)
[2017-06-20] MEDS: DULoxetine HCL 30 MG CAPSULE.DR (FP) PO SCH (11:08)
[2017-06-20] MEDS: BUDESONIDE/FORMETEROL FUMARATE 160/4.5 mcg INHALER IH SCH (11:08)
[2017-06-20] MEDS: amLODIPine BESYLATE 10 MG TABLET (FP) PO SCH (11:09)
[2017-06-20] MEDS: LISINOPRIL 10 MG TABLET (FP) PO SCH (11:09)
[2017-06-20] MEDS: OXYBUTYNIN CHLORIDE 5 MG TABLET PO SCH (11:12)
[2017-06-20 12:44] LABS: BASO % 0.9 % (0-2.0); EOS % 3.3 % (0-4.5); HEMOGLOBIN 11.9 GM/dL (10.7-15.3); LYMPH % 16.7 % (8-40); MCH 29.8 pg (25.7-33.7); MEAN CELL VOLUME 90.2 fl (80-96); MEAN PLT VOLUME 8.8 fl (7.5-11.1); MONO % 7.9 % (3.8-10.2); NEUT % 71.2 % (42.8-82.8); PLATELET COUNT 335 K/MM3 (134-434); RBC 3.99 M/mm3 (3.60-5.2); RDW 15.7 % (11.6-15.6); WHITE BLOOD COUNT 9.7 K/mm3 (4.0-10.0)
[2017-06-20] MEDS ORDERED: FOSFOMYCIN TROMETHAMINE 3 GM PO ONE (13:00)
--- NOTE | 2017-06-20 13:56 | PN ---
Teaching Attending Note Name of Resident: Burton Garcia ATTENDING PHYSICIAN STATEMENT I saw and evaluated the patient. I reviewed the resident's note and discussed the case with the resident. I agree with the resident's findings and plan as documented with exceptions mentioned below. SUBJECTIVE: Patient seen and examined. reports some cough, but no other complaints. No urinary or abdominal symptoms. Overall feels well. OBJECTIVE: Vital Signs Period Temp Pulse Resp BP Sys/Richardson Pulse Ox Last 24 Hr 98.0 F-98.5 F 74-85 20-20 119-142/61-72 96 Intake & Output 06/17/17 06/18/17 06/19/17 06/20/17 23:59 23:59 23:59 23:59 Intake Total 1480 1130 995 320 Balance 1480 1130 995 320 General: sitting in bed in no acute distress Chest: CTAB, no rales or wheezing Abdomen: soft, NT throughout, ND, positive bowel sounds Home Medication List Medication Instructions Recorded Confirmed Type Duloxetine HCl [Cymbalta] 60 mg PO DAILY 04/30/17 06/15/17 History Mirabegron [Myrbetriq] 50 mg PO DAILY 04/30/17 06/15/17 History Mirtazapine [Remeron -] 7.5 mg PO DAILY 04/30/17 06/15/17 History Montelukast Sodium [Singulair] 10 mg PO DAILY 04/30/17 06/15/17 History Nystatin Cream [Mycostatin Cream -] 1 applic TP PRN 04/30/17 06/15/17 History Hypromellose 0.5% Opth Soln 1 drop OU TID 06/15/17 06/15/17 History [Artificial Tears] Polyethylene Glycol 3350 1,700 gm PO DAILY 06/15/17 06/15/17 History [Laxaclear] Active Medications Generic Name Dose Route Start Last Admin Trade Name Freq PRN Reason Stop Dose Admin Acetaminophen 650 mg 06/19/17 09:04 Tylenol - PO Q4H PRN PAIN Albuterol/Ipratropium 1 amp 06/16/17 08:00 06/20/17 11:35 Duoneb - NEB 1 amp RQID YNES Administration Amlodipine Besylate 10 mg 06/17/17 10:00 06/20/17 11:09 Norvasc - PO 10 mg DAILY YNES Administration Budesonide/Formoterol Fumarate 1 puff 06/16/17 10:00 06/20/17 11:08 Symbicort 160/4.5mcg - IH 1 puff BID YNES Administration Duloxetine HCl 60 mg 06/16/17 10:00 06/20/17 11:08 Cymbalta - PO 60 mg DAILY YNES Administration Heparin Sodium (Porcine) 5,000 unit 06/16/17 06:00 06/20/17 13:38 Heparin - SQ 5,000 unit TID YNES Administration Levothyroxine Sodium 112 mcg/ 137 mcg 06/16/17 07:00 06/20/17 06:29 Levothyroxine Sodium 25 mcg PO 137 mcg DAILY@0700 YNES Administration Lisinopril 10 mg 06/16/17 10:00 06/20/17 11:09 Prinivil PO 10 mg DAILY YNES Administration Mirtazapine 7.5 mg 06/16/17 22:00 06/19/17 21:54 Remeron - PO 7.5 mg HS YNES Administration Montelukast Sodium 10 mg 06/16/17 22:00 06/19/17 21:55 Singulair - PO 10 mg HS YNES Administration Non-Formulary Medication 50 mg 06/16/17 10:00 Mirabegron [Myrbetriq] PO DAILY [facility] Oxybutynin Chloride 5 mg 06/16/17 10:00 06/20/17 11:12 Ditropan - PO 5 mg BID YNES Administration Laboratory Results - last 24 hr 06/20/17 12:25 WBC 9.7 RBC 3.99 Hgb 11.9 Hct 36.0 MCV 90.2 MCH 29.8 MCHC 33.0 RDW 15.7 H Plt Count 335 MPV 8.8 Neutrophils % 71.2 Lymphocytes % 16.7 D Monocytes % 7.9 Eosinophils % 3.3 Basophils % 0.9 Microbiology 06/19/17 09:28 Urine - Urine - Catheterized Urine Culture - Preliminary Lactose Fermenting Neg Bacilli 06/16/17 00:33 Urine - Urine Clean Catch Urine Culture - Final Escherichia Coli Esbl Rn Transitional ASSESSMENT AND PLAN: 87yo F wtih PMH COPD, HTN, B/L hip replacement, hypothyroid and suspected R lung ca s/p resection presented to the Er with generalized weakness -Generalized weakness, ?Lower uncomplicated UTI vs age progression/ deconditioning -?Lower uncomplicated UTI vs asymptomatic bacteruria -ESBL in urine cultures -HTN -COPD -Hypothyroidism -H/o ?lung cancer s/p resection Plan: S/p 3 days ceftriaxone, urine cultures with ESBL. ID input appreciated. Repeat urinalysis with 470 WBC, ID input appreciated. s/p fosfomycin x 1, no urinary symptoms, fevers or leucocytosis. Cough, but non concerning xray and lung exam, no fevers or leucocytosis. Outpatient monitoring. Continue levothyroxine/Lisinopril/amlodipine/inhalers Dispo to [facility] today. Plan discussed with patient and all questions answered
--- NOTE | 2017-06-20 14:36 | DS ---
Physical Exam: SUBJECTIVE: Patient seen and examined - No overnight event. Afebrile, hemo stable. Plan for d/c to [facility] today. Urine cultures with same organism, GNR ESBL. Pt ok for d/c w/o abx per ID team, already received fosfomycin OBJECTIVE: Vital Signs Intake & Output 06/17/17 06/18/17 06/19/17 06/20/17 23:59 23:59 23:59 23:59 Intake Total 1480 1130 995 320 Balance 1480 1130 995 320 Period Temp Pulse Resp BP Sys/Richardson Pulse Ox Last 24 Hr 98.0 F-98.5 F 74-85 20-20 119-142/61-72 96 PHYSICAL EXAM GENERAL: Elderly woman, AOx3, in NAD HEAD: Normal with no signs of trauma.. ENT: Ears normal, nares patent, oropharynx clear without exudates, moist mucous membranes. NECK: Trachea midline, full range of motion, supple. LUNGS: Breath sounds equal, clear to auscultation bilaterally, no wheezes, no crackles, no accessory muscle use. HEART: Regular rate and rhythm, S1, S2 without murmur, rub or gallop. ABDOMEN: Soft, nontender, nondistended, normoactive bowel sounds, no guarding, no rebound, no hepatosplenomegaly, no masses. EXTREMITIES: BL statis dermatitis up to superior ankle margin BL. Otherwise, 2+ pulses, warm, well-perfused, no edema. NEUROLOGICAL: Cranial nerves II through XII grossly intact. Normal speech, gait not observed. PSYCH: Normal mood, normal affect. pleasant SKIN: Warm, dry, normal turgor, no rashes or lesions noted LABS Laboratory Results - last 24 hr CBC, BMP 06/20/17 12:25 06/19/17 06:35 06/20/17 12:25 WBC 9.7 RBC 3.99 Hgb 11.9 Hct 36.0 MCV 90.2 MCH 29.8 MCHC 33.0 RDW 15.7 H Plt Count 335 MPV 8.8 Neutrophils % 71.2 Lymphocytes % 16.7 D Monocytes % 7.9 Eosinophils % 3.3 Basophils % 0.9 Microbiology 06/19/17 09:28 Urine - Urine - Catheterized Urine Culture - Preliminary Lactose Fermenting Neg Bacilli 06/16/17 00:33 Urine - Urine Clean Catch Urine Culture - Final Escherichia Coli Esbl Cl[employer] CXR 06/16 - scoliosis, cardiomaegaly, compressed vertebral bodies, coarse lung changes, shoulder degenerative changes CXR 06/20 - No acute changes noted (my read) Consults: ID - seen by Dr. Leone [facility]: Prehospital course: 87 y/o F w/PMH of COPD, R lung partial resection, HTN, b/l hip replacement, hypothyroidism, depression, overactive bladder presents to the ER after being sent in by her independent living facility for weakness. Pt states she has had trouble getting up from seated position yesterday which she is able to do at her baseline. She also reports feeling "tired". She was also walked in the ER here with walker and assistance and was only able to ambulate 2 feet. At living facility she can walk with walker on her own. She denies any light-headedness, fevers, chills, nausea, vomiting, CP, SOB, cough, abd pain, dysuria, blood in urine, change in urinary frequency, LE swelling. Pt was discharged 05/04/17 from [facility] where she was treated for pna. Hospital course: In ED, pt received one dose of Rocephin. Labs normal. CXR with no opacities. UA + for 3+ leuk esterase, urine culture sent. Pt kept on Rocephin, MS improved and no dysuria or urinary symptoms. Urine cultures grew + for GNR Lactose fermenting ESBL. ID consulted. Recommend one time dose of fosfomycin. Pt given dose. Repeat urine culture + for GNR. Pt with no other complaints. Per ID, OK to d/c after received dose of fosfomycin. Pt discharged to SNF with outpt follow -up with PCP. Date of Admission:06/17/17 Date of Discharge: 06/20/17 Pt is medically stable for discharge to SNF with outpt f/u with PCP in one week. Minutes to complete discharge: 35 Discharge Summary Reason For Visit: UTI WEAKNESS Current Active Problems UTI (urinary tract infection) (Acute) Weakness generalized (Acute) Condition: Stable - Instructions Diet, Activity, Other Instructions: During your stay at [facility], you were treated for a urinary tract infection. You were prescribed antibiotics and have since improved. You are being discharged to a retirement facility for short-term rehab before going home. Medications: Please continue to take all other home medications as previously directed. Please stop taking the following medications: Keflex 500mg Prednisone 50mg Follow-ups: Please follow-up with your primary care physician in 1 week. If you require a referral for a primary care physician, we have provided the contact information for the resident clinic in this packet. Please call the number provided to schedule an appointment within one week. If you experience worsening cough or shortness of breath or new fevers, please bring this to the attention of your primary care provider or covering medical team so that they can evaluate you further for a respiratory infection Diet/exercise: Please abide by a normal, well-balanced diet. You will require a rolling walker when ambulating per our physical therapy team recommendations. Please return to the hospital if you experience any of the following symptoms: - Persistent pain or increased frequency with urination - Any blood or pus in your urine - Worsening fevers or chills - Persistent, unremitting fatigue - Any new or concerning symptoms Referrals: Bjorn López MD [Staff Physician] - 1 Week Disposition: [facility] - Home Medications Comprehensive Discharge Medication List: Ambulatory Orders Duloxetine HCl [Cymbalta] 60 mg PO DAILY 04/30/17 Mirabegron [Myrbetriq] 50 mg PO DAILY 04/30/17 Mirtazapine [Remeron -] 7.5 mg PO DAILY 04/30/17 Montelukast Sodium [Singulair] 10 mg PO DAILY 04/30/17 Nystatin Cream [Mycostatin Cream -] 1 applic TP PRN 04/30/17 Amlodipine Besylate [Norvasc -] 5 mg PO DAILY #30 tablet 05/04/17 Budesonide/Formeterol Fumarate [SYMBICORT 160/4.5mcg -] 1 inh IH BID #1 inhaler 05/04/17 Levothyroxine Sodium [Synthroid] 137 mcg PO DAILY #7 tablet 05/04/17 Lisinopril 10 mg PO DAILY #30 tablet 05/04/17 Oxybutynin Chloride 5 mg PO BID #60 tablet 05/04/17 Polyvinyl Alcohol [Artificial Tears] 1 drop OU QID PRN drops 05/04/17 Hypromellose 0.5% Opth Soln [Artificial Tears] 1 drop OU TID 06/15/17 Polyethylene Glycol 3350 [Laxaclear] 1,700 gm PO DAILY 06/15/17 This patient is new to me today: No Emergency Visit: Yes ED Registration Date: 06/17/17 Care time: The patient presented to the Emergency Department on the above date and was hospitalized for further evaluation of their emergent condition. Critical Care patient: No - Discharge Referral Referred to [facility] Med [facility] No
[2017-06-20 15:26] VITALS: BP 106/58; PULSE 90; TEMP 98.5
== END 2017-06-20 16:01 | DRG 690 ==
LOC: JER 21:59 → JERBED 06-16 02:01 → UNDOADMOB 06-16 02:01 → J5S 06-16 06:03 → JERBED 06-16 06:03 → J5S 06-16 16:03 → JERBED 06-16 16:03 → OBSVTOIN 06-17 12:30
PROVIDERS: ADMIT Internal Medicine; ATTEND Hospitalist
DX: N39.0 Urinary tract infection, site not specified (principal); J44.9 Chronic obstructive pulmonary disease, unspecified; I10 Essential (primary) hypertension; B96.20 Unspecified Escherichia coli [E. coli] as the cause of diseases classified elsewhere; E03.9 Hypothyroidism, unspecified; F32.9 Major depressive disorder, single episode, unspecified; N32.81 Overactive bladder; R91.8 Other nonspecific abnormal finding of lung field; R53.1 Weakness; Z96.643 Presence of artificial hip joint, bilateral; Z87.891 Personal history of nicotine dependence; Z88.0 Allergy status to penicillin
CPT/HCPCS: 36415; 71045-TC-FY; 80048; 80053; 81003; 81015; 83735; 84443; 84484; 85025; 85027; 87086; 87186; 90670; 93005; 93010; 94640; 97116-GP; 97161-GP; 99283-25; G0378; J1644; J7030

== ENCOUNTER 2017-08-26 23:11 | Emergency (ER) | payer OTHER, MEDICARE ==
--- NOTE | 2017-08-26 23:55 | PDOC ---
History of Present Illness - General Chief Complaint: Injury Stated Complaint: FALL Time Seen by Provider: 08/26/17 23:55 - History of Present Illness Initial Comments: 87 year old female who was BIBA from an [place] independent living facility , with PMH of COPD, R lung resection, HTN, b/l hip replacements, hypothyroidism , depression, overactive bladder, and presents with mild posterior headache and right hip pain/ upper leg pain after a fall backwards while opening a bedside drawer. She uses a walker to ambulate at her independent facility. Denies fevers , chills, nausea, vomiting, visual change, focal neuro deficit, or other symptoms. 08/26/17 23:56 Past History - Past Medical History Allergies/Adverse Reactions: Allergies Allergy/AdvReac Type Severity Reaction Status Date / Time Sulfa (Sulfonamide Allergy Verified 08/27/17 00:01 Antibiotics) Penicillins AdvReac Verified 08/27/17 00:01 Home Medications: Ambulatory Orders Duloxetine HCl [Cymbalta] 60 mg PO DAILY 04/30/17 Mirabegron [Myrbetriq] 50 mg PO DAILY 04/30/17 Mirtazapine [Remeron -] 7.5 mg PO DAILY 04/30/17 Montelukast Sodium [Singulair] 10 mg PO DAILY 04/30/17 Nystatin Cream [Mycostatin Cream -] 1 applic TP PRN 04/30/17 Amlodipine Besylate [Norvasc -] 5 mg PO DAILY #30 tablet 05/04/17 Budesonide/Formeterol Fumarate [SYMBICORT 160/4.5mcg -] 1 inh IH BID #1 inhaler 05/04/17 Levothyroxine Sodium [Synthroid] 137 mcg PO DAILY #7 tablet 05/04/17 Lisinopril 10 mg PO DAILY #30 tablet 05/04/17 Oxybutynin Chloride 5 mg PO BID #60 tablet 05/04/17 Polyvinyl Alcohol [Artificial Tears] 1 drop OU QID PRN drops 05/04/17 Hypromellose 0.5% Opth Soln [Artificial Tears] 1 drop OU TID 06/15/17 Polyethylene Glycol 3350 [Laxaclear] 1,700 gm PO DAILY 06/15/17 Asthma: Yes COPD: No Disorders: Yes (overactive bladder) HTN: Yes Psychiatric Problems: Yes (depression) Thyroid Disease: Yes - Surgical History Lung Surgery: Yes (partial lung lobectomy) Orthopedic Surgery: Yes (archie hip replacements) - Immunization History Immunization Up to Date: Yes - Suicide/Smoking/Psychosocial Hx Smoking History: Never smoked Have you smoked in the past 12 months: No If you are a former smoker, when did you quit?: 5 yrs ago Hx Alcohol Use: No Drug/Substance Use Hx: No Substance Use Type: None Hx Substance Use Treatment: No Review of Systems - Review of Systems Constitutional: No: Chills, Diaphoresis, Fever, Loss of Appetite HEENTM: No: Eye Pain, Blurred Vision, Recent change in vision Respiratory: No: Cough, Shortness of Breath, Wheezing Cardiac (ROS): No: Chest Pain, Irregular Heart Rate ABD/GI: No: Diarrhea, Nausea, Vomiting : No: Burning, Dysuria, Discharge Musculoskeletal: Yes: Joint Pain, Joint Stiffness. No: Muscle Pain, Muscle Weakness Integumentary: No: Bruising, Lesions, Lumps, Pallor Neurological: Yes: Headache. No: Numbness, Paresthesia, Weakness, Ataxia, Dizziness *Physical Exam - Physical Exam General Appearance: Yes: Nourished, Appropriately Dressed, Thin. No: Apparent Distress HEENT: positive: EOMI, KASSIE, Other (edontulous). negative: Normal ENT Inspection Neck: positive: Trachea midline, Normal Thyroid, Supple. negative: Tender, Rigid Respiratory/Chest: positive: Lungs Clear, Normal Breath Sounds. negative: Chest Tender, Respiratory Distress, Accessory Muscle Use Cardiovascular: positive: Regular Rhythm, Regular Rate Gastrointestinal/Abdominal: positive: Flat, Soft. negative: Normal Bowel Sounds , Tender Musculoskeletal: positive: Normal Inspection. negative: Decreased Range of Motion Extremity: positive: Normal Capillary Refill, Normal Inspection, Normal Range of Motion. negative: Tender Integumentary: positive: Normal Color, Dry, Warm Neurologic: positive: Fully Oriented, Alert, Normal Mood/Affect, Normal Response. negative: Motor Strength 5/5 (4/5) Medical Decision Making - Medical Decision Making 87 year old female who is very easily agitated and fell back, striking her head on the floor at her assisted living facility while trying to open a drawer. Head CT does not seem to demonstrate any obvious bleed. Will DC patient patient back to [facility]. 08/27/17 03:17 *DC/Admit/Observation/Transfer Diagnosis at time of Disposition: Fall Qualifiers: Encounter type: initial encounter Qualified Code(s): W19.XXXA - Unspecified fall, initial encounter - Discharge Dispostion Disposition: HOME Condition at time of disposition: Fair Decision to Admit order: No - Referrals Referrals: [facility] [Provider Group] - Patient Instructions Printed Discharge Instructions: How to Prevent Falls Additional Instructions: You do not have any fractures or bleeds. Please follow up with your primary care physician this week. Please use our recommended primary care physicians if you do not have one. Please return to the for any further issues that you have. - Post Discharge Activity
[2017-08-27 00:11] VITALS: BP 124/89; PULSE 85; TEMP 98.6; BMI 18.0
--- NOTE | 2017-08-27 01:22 | PDOC ---
Attending Attestation - HPI HPI: 08/27/17 03:00 The patient is a 87 year old female with past medical history of asthma, HTN, depression, COPD, overactive bladder, and thyroid disease presents to the emergency department s/p a fall. The patient states she was trying to open her night stand drawer when she suffered a fall. The patient reports hitting her head. Patient reports right hip pain, upper leg pain and a mild headache. Denies fever, chills, cough. Denies chest pain or sob. Denies nausea or vomiting. Denies diarrhea or constipation. Denies dysuria, hematuria, frequency or urgency to urinate. Allergies: Sulfa (sulfonamide Antibio), and penicillins Surgical history: partial lung lobectomy and bilateral hip replacement. Social history: Former smoker. Denies the history of alcohol or recreational drugs use. PCP: None reported - Physicial Exam PE: 08/27/17 03:01 Agree with the resident. - Medical Decision Making 08/27/17 03:01 Documentation prepared by Jessica Phelps, acting as biomedical photographer for Laure Price MD. <Jessica Phelps - Last Filed: 08/27/17 03:00> - Resident Resident Name: Ritika Osorio - ED Attending Attestation I have performed the following: I have examined & evaluated the patient, The case was reviewed & discussed with the resident, I agree w/resident's findings & plan - Medical Decision Making 08/27/17 03:[address] result is pending 08/27/17 03:39 Patient Name: SHANNON JC THIS IS A PRELIMINARY REPORT FROM [facility] DATE OF SERVICE: 2017-08-27 03:03:10 IMAGES: 410 EXAM: CT HEAD WITHOUT CONTRAST No acute brain parenchymal abnormality. No hemorrhage, mass or acute territorial infarct. Atrophy and chronic small vessel ischemic changes. 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 Chronic lacunar infarcts. Clear visualized paranasal sinuses. Partial bilateral mastoid effusions. THIS DOCUMENT HAS BEEN ELECTRONICALLY SIGNED Pt is stable for discharge <Laure Price - Last Filed: 08/27/17 03:39>
== END 2017-08-27 05:19 | disposition home or self-care (01) ==
LOC: JER 23:11
DX: S09.8XXA Other specified injuries of head, initial encounter (principal); R51 Headache; W01.198A Fall on same level from slipping, tripping and stumbling with subsequent striking against other object, initial encounter; Y93.89 Activity, other specified; Y92.092 Bedroom in other non-institutional residence as the place of occurrence of the external cause; Y99.8 Other external cause status; I10 Essential (primary) hypertension; J44.9 Chronic obstructive pulmonary disease, unspecified; E03.9 Hypothyroidism, unspecified; F32.9 Major depressive disorder, single episode, unspecified; Z96.643 Presence of artificial hip joint, bilateral
CPT/HCPCS: 70450-TC; 73523-TC-FY; 73552-TC-RT-FY; 99281-25

== ENCOUNTER 2017-09-09 14:23 | Inpatient (IN) | payer OTHER, MEDICARE ==
--- NOTE | 2017-09-09 14:41 | PDOC ---
History of Present Illness - General Chief Complaint: Pain Stated Complaint: FALL Time Seen by Provider: 09/09/17 14:41 - History of Present Illness Initial Comments: 09/09/17 14:41 Ms. Mack is an 87 yo female w/ pmh of COPD, R lung resection, HTN, bilateral hip replacements, hypothyroidism, depression, and overactive bladder who presents for evaluation after fall earlier today. Ms. Mack reports she was sitting on a low chair that had no arms when she slid off of the side and landed on her left hip. She denies hitting her head or any LOC and is currently reporting left hip pain on movement / palpation. The patient denies chest pain, shortness of breath, headache and dizziness. Denies fever, chills, nausea, vomit, diarrhea and constipation. Denies dysuria, frequency, urgency and hematuria. Allergies: Sulfa drugs, penicillins Past History - Past Medical History Allergies/Adverse Reactions: Allergies Allergy/AdvReac Type Severity Reaction Status Date / Time Sulfa (Sulfonamide Allergy Verified 08/27/17 00:01 Antibiotics) Penicillins AdvReac Verified 08/27/17 00:01 Home Medications: Ambulatory Orders Duloxetine HCl [Cymbalta] 60 mg PO DAILY 04/30/17 Mirabegron [Myrbetriq] 50 mg PO DAILY 04/30/17 Mirtazapine [Remeron -] 7.5 mg PO DAILY 04/30/17 Montelukast Sodium [Singulair] 10 mg PO DAILY 04/30/17 Nystatin Cream [Mycostatin Cream -] 1 applic TP PRN 04/30/17 Amlodipine Besylate [Norvasc -] 5 mg PO DAILY #30 tablet 05/04/17 Budesonide/Formeterol Fumarate [SYMBICORT 160/4.5mcg -] 1 inh IH BID #1 inhaler 05/04/17 Levothyroxine Sodium [Synthroid] 137 mcg PO DAILY #7 tablet 05/04/17 Lisinopril 10 mg PO DAILY #30 tablet 05/04/17 Oxybutynin Chloride 5 mg PO BID #60 tablet 05/04/17 Polyvinyl Alcohol [Artificial Tears] 1 drop OU QID PRN drops 05/04/17 Hypromellose 0.5% Opth Soln [Artificial Tears] 1 drop OU TID 06/15/17 Polyethylene Glycol 3350 [Laxaclear] 1,700 gm PO DAILY 06/15/17 Asthma: Yes COPD: No Disorders: Yes (overactive bladder) HTN: Yes Psychiatric Problems: Yes (depression) Thyroid Disease: Yes - Surgical History Lung Surgery: Yes (partial lung lobectomy) Orthopedic Surgery: Yes (archie hip replacements) - Immunization History Immunization Up to Date: Yes - Suicide/Smoking/Psychosocial Hx Smoking History: Former smoker Have you smoked in the past 12 months: No If you are a former smoker, when did you quit?: 5 yrs ago Information on smoking cessation initiated: No Hx Alcohol Use: No Drug/Substance Use Hx: No Substance Use Type: None Hx Substance Use Treatment: No Review of Systems - Review of Systems Comments:: 09/09/17 15:34 GENERAL/CONSTITUTIONAL: No fever or chills. No weakness. HEAD, EYES, EARS, NOSE AND THROAT: No change in vision. No ear pain or discharge. No sore throat. CARDIOVASCULAR: No chest pain or shortness of breath RESPIRATORY: No cough, wheezing, or hemoptysis. GASTROINTESTINAL: No nausea, vomiting, diarrhea or constipation. GENITOURINARY: No dysuria, frequency, or change in urination. MUSCULOSKELETAL: +Left hip pain with movement. SKIN: No rash NEUROLOGIC: No headache, vertigo, loss of consciousness, or change in strength/ sensation. ENDOCRINE: No increased thirst. No abnormal weight change HEMATOLOGIC/LYMPHATIC: No anemia, easy bleeding, or history of blood clots. ALLERGIC/IMMUNOLOGIC: No hives or skin allergy. *Physical Exam - Vital Signs Last Vital Signs Temp Pulse Resp BP Pulse Ox 97.6 F 76 20 146/76 09/09/17 14:36 09/09/17 14:36 09/09/17 14:36 09/09/17 14:36 - Physical Exam Comments: 09/09/17 15:34 GENERAL: Awake, alert, and fully oriented, in no acute distress HEAD: No signs of trauma, normocephalic, atraumatic EYES: PERRLA, EOMI, sclera anicteric, conjunctiva clear ENT: Auricles normal inspection, hearing grossly normal, nares patent, oropharynx clear without exudates. Moist mucosa NECK: Normal ROM, supple, no lymphadenopathy, JVD, or masses LUNGS: No distress, speaks full sentences, clear to auscultation bilaterally HEART: Regular rate and rhythm, normal S1 and S2, no murmurs, rubs or gallops, peripheral pulses normal and equal bilaterally. ABDOMEN: Soft, nontender, normoactive bowel sounds. No guarding, no rebound. No masses EXTREMITIES: +Significant pain with palpation of left hip. Patient able to rotate hip externally and internally. NEUROLOGICAL: Cranial nerves II through XII grossly intact. Normal speech, normal gait, no focal sensorimotor deficits SKIN: Warm, Dry, normal turgor, no rashes or lesions noted. ED Treatment Course - LABORATORY CBC & Chemistry Diagram: 09/09/17 15:39 09/09/17 15:39 Medical Decision Making - Medical Decision Making 09/09/17 19:27 Ms. Mack is an 87 yo female w/ pmh as described who presents for evaluation post fall. Radiology films unable to determine fracture. Given acute nature of patient's pain, CT sent for further evaluation. Imaging sent to [facility] for further evaluation. 09/09/17 20:12 Imaging negative for acute process however patient unable to ambulate. Will admit for difficulty ambulating and PT/OT evaluation. *DC/Admit/Observation/Transfer Diagnosis at time of Disposition: Unable to ambulate Fall Qualifiers: Encounter type: initial encounter Qualified Code(s): W19.XXXA - Unspecified fall, initial encounter - Discharge Dispostion Decision to Admit order: Yes - Referrals Referrals: ON STAFF,NOT [Primary Care Provider] - - Patient Instructions - Post Discharge Activity
[2017-09-09 14:44] VITALS: BMI 22.7
[2017-09-09] MEDS ORDERED: ACETAMINOPHEN 1000 MG/100 ML VIAL (NON FORMULARY) IVPB ONE (15:01)
--- NOTE | 2017-09-09 15:35 | PDOC ---
Attending Attestation - HPI HPI: 09/09/17 16:26 The patient is a 87 year old female with a significant PMH of COPD, hypertension, hypothyroidism, depression, lung resection, and overactive bladder who presents to the emergency department s/p fall earlier today. The patient reports that she was at home at her assisted living facility when she slipped out of a low chair that didnt have arms and fell to the ground. The patient reports that when she fell she landed on her left hip. . The patient denies any loc or head injury. She states that she was on the ground for a while before EMS came and picked her up on the floor. The patient is currently complaining of left hip pain. The patient denies any other symptoms. She denies any numbness, weakness, or tingling. She denies any fever, chills, nausea, vomit , diarrhea, constipation or urinary symptoms. She denies any chest pain, shortness of breath, headache and dizziness. The patient denies any other complaints. Allergies: Sulfa drugs, penicillins - Physicial Exam PE: 09/09/17 16:26 GENERAL: Awake, alert, and fully oriented, in no acute distress HEAD: No signs of trauma EYES: PERRLA, EOMI, sclera anicteric, conjunctiva clear ENT: (+)dry mucous membrane, dry tongue and lips. Auricles normal inspection, hearing grossly normal, nares patent, oropharynx clear without exudates. NECK: Normal ROM, supple, no lymphadenopathy, JVD, or masses LUNGS: Breath sounds equal, clear to auscultation bilaterally. No wheezes, and no crackles HEART: Regular rate and rhythm, normal S1 and S2, no murmurs, rubs or gallops ABDOMEN: (+)Belly tender and suprapubic. Soft, nontender, normoactive bowel sounds. No guarding, no rebound. No masses EXTREMITIES: (+) tender ASIS, negative leg roll in lower extremities. Sensation intact to feet , able to range lower leg. Normal range of motion, no edema. No clubbing or cyanosis. No cords, erythema, or tenderness NEUROLOGICAL: Cranial nerves II through XII grossly intact. Normal speech, normal gait SKIN: Warm, Dry, normal turgor, no rashes or lesions noted. Documentation prepared by Fede Rodriguez, acting as medical office worker for Ginger Bradford MD. <Fede Rodriguez - Last Filed: 09/09/17 16:26> - Resident Resident Name: Aaron Gomez - ED Attending Attestation I have performed the following: I have examined & evaluated the patient, The case was reviewed & discussed with the resident, I agree w/resident's findings & plan, Exceptions are as noted - Medical Decision Making 09/09/17 15:35 I, Dr. Ginger Bradford, DO, attest that this document has been prepared under my direction and personally reviewed by me in its entirety. I further attest, that it accurately reflects all work, treatment, procedures and medical decision -making performed by me. 09/09/17 16:11 a/p: 87yo female s/p fall of a chair -no arms on the chair and she fell off the side, landed on her L hip -acute ttp L hip, hx of b/l hip replacements -currently on bactrim for a UTI -pt appears dehydrated -dry cracked tongue and lips, tenting skin -no head injury or LOC -no neck or back pain -will check labs, ua, cxr, pelvis and L hip xray 09/09/17 16:14 no acute fractures seen on the xray - however acute pain, will obtain ct imaging of the left hip and pelvis -ivf hydration running -pt currently drinking water as well and eating apple sauce 09/09/17 19:58 pt unable to ambulate 09/09/17 19:[address] in obs for PT, pain control and further eval <Ginger Bradford - Last Filed: 09/09/17 21:14>
[2017-09-09 15:56] LABS: BASO % 0.9 % (0-2.0); EOS % 0.9 % (0-4.5); HEMATOCRIT 38.6 % (32.4-45.2); HEMOGLOBIN 12.5 GM/dL (10.7-15.3); LYMPH % 7.9 % (8-40); MCH 27.8 pg (25.7-33.7); MCHC 32.3 g/dl (32.0-36.0); MEAN PLT VOLUME 9.1 fl (7.5-11.1); MONO % 8.8 % (3.8-10.2); NEUT % 81.5 % (42.8-82.8); PLATELET COUNT 365 K/MM3 (134-434); RBC 4.48 M/mm3 (3.60-5.2); RDW 14.4 % (11.6-15.6); WHITE BLOOD COUNT 11.4 K/mm3 (4.0-10.0)
[2017-09-09] MEDS ORDERED: SODIUM CHLORIDE 0.9% 1000 ML INFUS.BAG IV ONE (16:06)
[2017-09-09 16:15] LABS: INR 1.01 (0.82-1.09); PROTHROMBIN TIME (PATIENT) 11.4 SEC (9.7-13.0)
[2017-09-09 16:18] LABS: ACTIVATED PTT 28.4 SECONDS (25.2-36.5)
[2017-09-09 16:25] LABS: ALBUMIN 2.8 g/dl (3.4-5.0); ALK PHOS 66 U/L (45-117); ANION GAP 9 (8-16); BILIRUBIN,TOTAL 0.6 mg/dL (0.2-1.0); BLOOD UREA NITROGEN 22 mg/dL (7-18); CALCIUM 8.7 mg/dL (8.5-10.1); CHLORIDE 101 mmol/L (98-107); CO2 27 mmol/L (21-32); CREATININE 0.8 mg/dL (0.55-1.02); GLUCOSE,RANDOM 83 mg/dL (74-106); POTASSIUM 4.6 mmol/L (3.5-5.1); SGOT/AST 15 U/L (15-37); SGPT/ALT 16 U/L (12-78); SODIUM 137 mmol/L (136-145); TOT PROT 6.4 g/dl (6.4-8.2)
[2017-09-09 16:52] LABS: URINE APPEARANCE CLEAR; URINE BILIRUBIN NEGATIVE (<2.0 mg/dL); URINE COLOR STRAW; URINE GLUCOSE (UA) NEGATIVE (NEGATIVE); URINE KETONE NEGATIVE (NEGATIVE); URINE LEUK ESTERASE NEGATIVE (NEGATIVE); URINE NITRITE POSITIVE (NEGATIVE); URINE PROTEIN NEGATIVE (NEGATIVE); URINE UROBILINOGEN NEGATIVE mg/dL (0.2-1.0)
[2017-09-09 16:55] LABS: EPI CELLS RARE /HPF (FEW); URINE BACTERIA RARE /hpf (NONE SEEN)
[2017-09-09] MEDS ORDERED: LIDOCAINE 5% TOPICAL PATCH TP ONE (19:57)
[2017-09-09] MEDS ORDERED: LIDOCAINE 5% TOPICAL PATCH ONE (20:40)
[2017-09-09] MEDS: LIDOCAINE PATCH REMOVAL MC SCH (23:02)
[2017-09-09] MEDS ORDERED: ARTIFICIAL TEARS (POLYVINYL ALCOHOL 1.4%) OPTH DROPS OU PRN (23:59)
--- NOTE | 2017-09-10 02:03 | HP ---
CHIEF COMPLAINT: s/p fall PCP: none HISTORY OF PRESENT ILLNESS: The patient is an 87 yo f w/ PMH COPD, lung Ca s/p lung resection, HTN, hypothyroidism, multiple mechanical falls who presents from [place] for evaluation s/ p fall. The patient states that she was sitting in a low chair without any arms and slipped off, striking her left hip and buttock on the floor. The patient states she had multiple similar occurrences in the past, including 3 falls this week. Currently, the patient is complaining of left hip and buttock pain. The patient denies ever losing consciousness, any dizziness, chest pain, SOB, palpitations, fevers, chills, nausea, vomiting, diarrhea, constipation or dysuria. ER course was notable for: (1) EKG unchanged from previous (2) CT LE negative for fracture (3) XR hips negative for fracture. Recent Travel: none PAST MEDICAL HISTORY: Depression, Overactive bladder, asthma PAST SURGICAL HISTORY: b/l Total hip replacement with revision Lung wedge resection for Ca Cholecystectomy thyroidectomy Social History: Smoking: denies Alcohol: denies Drugs: denies Family History: non-contributory Allergies Sulfa (Sulfonamide Antibiotics) Allergy (Verified 08/27/17 00:01) Penicillins Adverse Reaction (Verified 08/27/17 00:01) HOME MEDICATIONS: Home Medications Medication Instructions Recorded Duloxetine HCl [Cymbalta] 60 mg PO DAILY 04/30/17 Mirabegron [Myrbetriq] 50 mg PO DAILY 04/30/17 Mirtazapine [Remeron -] 7.5 mg PO DAILY 04/30/17 Montelukast Sodium [Singulair] 10 mg PO DAILY 04/30/17 Amlodipine Besylate [Norvasc -] 5 mg PO DAILY #30 tablet 05/04/17 Budesonide/Formeterol Fumarate 1 inh IH BID #1 inhaler 05/04/17 [SYMBICORT 160/4.5mcg -] Levothyroxine Sodium [Synthroid] 137 mcg PO DAILY #7 tablet 05/04/17 Lisinopril 10 mg PO DAILY #30 tablet 05/04/17 Oxybutynin Chloride 5 mg PO BID #60 tablet 05/04/17 Polyvinyl Alcohol [Artificial 1 drop OU QID PRN drops 05/04/17 Tears] Polyethylene Glycol 3350 1,700 gm PO DAILY 06/15/17 [Laxaclear] Acetaminophen [Mapap] 650 mg PO PRN PRN 09/09/17 Bacitracin - [Bacitracin Topical 1 applic TP DAILY 09/09/17 Ointment -] Chlorhexidine Gluconate 15 ml MM DAILY 09/09/17 Sulfamethoxazole/Trimethoprim 1 each PO BID 09/09/17 [Bactrim Ds Tablet] REVIEW OF SYSTEMS CONSTITUTIONAL: Absent: fever, chills, diaphoresis, generalized weakness, malaise, loss of appetite, weight change HEENT: Absent: rhinorrhea, nasal congestion, throat pain, throat swelling, difficulty swallowing, mouth swelling, ear pain, eye pain, visual changes CARDIOVASCULAR: Absent: chest pain, syncope, palpitations, irregular heart rate, lightheadedness , peripheral edema RESPIRATORY: Absent: cough, shortness of breath, dyspnea with exertion, orthopnea, wheezing, stridor, hemoptysis GASTROINTESTINAL: Absent: abdominal pain, abdominal distension, nausea, vomiting, diarrhea, constipation, melena, hematochezia GENITOURINARY: Absent: dysuria, frequency, urgency, hesitancy, hematuria, flank pain, genital pain MUSCULOSKELETAL: Absent: joint swelling, back pain, neck pain SKIN: Absent: rash, itching, pallor HEMATOLOGIC/IMMUNOLOGIC: Absent: easy bleeding, easy bruising, lymphadenopathy, frequent infections ENDOCRINE: Absent: unexplained weight gain, unexplained weight loss, heat intolerance, cold intolerance NEUROLOGIC: Absent: headache, focal weakness or paresthesias, dizziness, unsteady gait, seizure, mental status changes, bladder or bowel incontinence PSYCHIATRIC: Absent: anxiety, depression, suicidal or homicidal ideation, hallucinations. PHYSICAL EXAMINATION Vital Signs - 24 hr 09/09/17 14:36 Temperature 97.6 F Pulse Rate 76 Respiratory 20 Rate Blood Pressure 146/76 GENERAL: Awake, alert, and fully oriented, in no acute distress. HEAD: Normal with no signs of trauma. EYES: Pupils equal, round and reactive to light, extraocular movements intact, sclera anicteric, conjunctiva clear. No lid lag. EARS, NOSE, THROAT: oropharynx clear without exudates. Moist mucous membranes. NECK: Normal range of motion, supple without lymphadenopathy, JVD, or masses. LUNGS: Breath sounds equal, clear to auscultation bilaterally. No wheezes, and no crackles. No accessory muscle use. HEART: Regular rate and rhythm, normal S1 and S2 without murmur, rub or gallop. ABDOMEN: Soft, nontender, not distended, normoactive bowel sounds, no guarding, no rebound, no masses. No hepatomegaly or splenomegaly. MUSCULOSKELETAL: Normal range of motion at all joints. No bony deformities or tenderness. No CVA tenderness. There is tenderness to palpation along the left hip and buttock. Pelvis stable UPPER EXTREMITIES: 2+ pulses, warm, well-perfused. No cyanosis. No clubbing. No peripheral edema. LOWER EXTREMITIES: 2+ pulses, warm, well-perfused. No calf tenderness. No peripheral edema. NEUROLOGICAL: Cranial nerves II-X intact. Normal speech. strength 5/5 in all 4 extremities. SKIN: Warm, dry, normal turgor, no rashes or lesions noted, normal capillary refill. Laboratory Results - last 24 hr 09/09/17 09/09/17 09/09/17 15:39 15:39 15:39 WBC 11.4 H RBC 4.48 Hgb 12.5 Hct 38.6 MCV 86.0 MCH 27.8 MCHC 32.3 RDW 14.4 Plt Count 365 MPV 9.1 Absolute Neuts (auto) 9.3 Neutrophils % 81.5 Lymphocytes % 7.9 L D Monocytes % 8.8 Eosinophils % 0.9 Basophils % 0.9 Nucleated RBC % 0 PT with INR 11.40 INR 1.01 PTT (Actin FS) 28.4 Sodium 137 Potassium 4.6 Chloride 101 Carbon Dioxide 27 Anion Gap 9 BUN 22 H Creatinine 0.8 Creat Clearance w eGFR > 60 Random Glucose 83 Calcium 8.7 Total Bilirubin 0.6 AST 15 ALT 16 Alkaline Phosphatase 66 Total Protein 6.4 Albumin 2.8 L Urine Color Urine Appearance Urine pH Ur Specific [place] Urine Protein Urine Glucose (UA) Urine Ketones Urine Blood Urine Nitrite Urine Bilirubin Urine Urobilinogen Ur Leukocyte Esterase Urine WBC (Auto) Urine RBC (Auto) Ur Epithelial Cells Urine Bacteria Blood Type Antibody Screen 09/09/17 09/09/17 15:39 16:35 WBC RBC Hgb Hct MCV MCH MCHC RDW Plt Count MPV Absolute Neuts (auto) Neutrophils % Lymphocytes % Monocytes % Eosinophils % Basophils % Nucleated RBC % PT with INR INR PTT (Actin FS) Sodium Potassium Chloride Carbon Dioxide Anion Gap BUN Creatinine Creat Clearance w eGFR Random Glucose Calcium Total Bilirubin AST ALT Alkaline Phosphatase Total Protein Albumin Urine Color Straw Urine Appearance Clear Urine pH 8.0 Ur Specific [place] 1.003 Urine Protein Negative Urine Glucose (UA) Negative Urine Ketones Negative Urine Blood Negative Urine Nitrite Positive Urine Bilirubin Negative Urine Urobilinogen Negative Ur Leukocyte Esterase Negative Urine WBC (Auto) <1 Urine RBC (Auto) <1 Ur Epithelial Cells Rare Urine Bacteria Rare Blood Type AB POSITIVE Antibody Screen Negative ASSESSMENT/PLAN: The patient is an 87 yo f w/ PMH COPD, HTN, Hypothyroid and multiple falls in the past who comes into the ED s/p fall. #Rt hip pain s/p fall likely 2/2 contusion -CT LE and XR hips negative for fracture. -Though patient has no fracture, she cannot bear weight per ED staff, necessitating admission for PT eval. -orthostatic vital signs -fall precautions #FEN -no fluids indicated -lytes WNL, replete PRN -sodium controlled diet #prophy -heparin 5k units SQ TID #dispo -admit for observation Visit type - Emergency Visit Emergency Visit: Yes ED Registration Date: 09/09/17 Care time: The patient presented to the Emergency Department on the above date and was hospitalized for further evaluation of their emergent condition. - New Patient This patient is new to me today: Yes Date on this admission: 09/10/17 - Critical Care Critical Care patient: No Hospitalist Screening - Colonoscopy Questionnaire Colonoscopy Questionnaire: Colonoscopy Questionnaire - Patient: 50 - 75 years old and never had a screening colonoscopy: Unknown History of colon or rectal polyps, or CA: Unknown History of IBD, Crohn's disease or UC: Unknown History of abdominal radiation therapy as a child: Unknown - Relative: 1 with colon or rectal CA, or polyps at age 60 or younger: Unknown Colon or rectal CA diagnosed at age 45 or younger: Unknown Multiple relatives with colon or rectal CA: Unknown - Outcome: Screening Result: Negative Screen
--- NOTE | 2017-09-10 02:08 | PN ---
Teaching Attending Note Name of Resident: Gilmar Ricardo ATTENDING PHYSICIAN STATEMENT I saw and evaluated the patient. Chart, data, imaging reviewed. I reviewed the resident's note and discussed the case with the resident. I agree with the resident's findings and plan as documented. SUBJECTIVE: 87 yo woman w/ COPD, lung Ca s/p lung resection, HTN, hypothyroidism, multiple mechanical falls, shelter resident who was brought in to hospital after she slipped from chair in her shelter onto her left buttock. No LOC or head trauma. CT of lower ext prelim read neg for fracture of lower ext or sacrum. OBJECTIVE: Last Vital Signs Temp Pulse Resp BP Pulse Ox 97.6 F 76 20 146/76 09/09/17 14:36 09/09/17 14:36 09/09/17 14:36 09/09/17 14:36 General- nad, appears comfortable heent -no evidence of trauma neck - no jvd cv-s1+s2+rrr chest clear abdomen-soft , nt, bs+ msk- no tenderness on palpation of upper and lower ext Abnormal Lab Results 09/09/17 09/09/17 15:39 15:39 WBC 11.4 H Lymphocytes % 7.9 L D BUN [address] of lower ext -reviewed by me, b/l hip arthroplasties no evidence of lower ext or pelvic fractures on prelim read EKG - reviewed, nsr ASSESSMENT AND PLAN: #87yo woman s/p fall from chair to ground with no evidence of fractures on exam , with lower ext CT neg for fracture -observation -bed rest -fall precautions -PT evaluation for gait assessment -heparin for dvt ppx -c/w home meds for chronic medical problems -see resident note for details
[2017-09-10] MEDS ORDERED: LEVOTHYROXINE NA 25 MCG TABLET (FP) ONE (06:18)
[2017-09-10] MEDS ORDERED: HEPARIN NA (PORCINE) 5,000 UNITS/ML 1ML VIAL ONE (06:21)
[2017-09-10] MEDS: LEVOTHYROXINE 112 MCG, LEVOTHYROXINE 25 MCG PO SCH (06:35)
[2017-09-10] MEDS: HEPARIN NA (PORCINE) 5,000 UNITS/ML 1ML VIAL SQ SCH ×3 (06:35→22:02)
[2017-09-10 06:43] LABS: HEMATOCRIT 36.6 % (32.4-45.2); HEMOGLOBIN 12.1 GM/dL (10.7-15.3); MCH 28.2 pg (25.7-33.7); MEAN CELL VOLUME 85.3 fl (80-96); MEAN PLT VOLUME 8.9 fl (7.5-11.1); PLATELET COUNT 327 K/MM3 (134-434); RBC 4.28 M/mm3 (3.60-5.2); RDW 14.4 % (11.6-15.6); WHITE BLOOD COUNT 6.8 K/mm3 (4.0-10.0)
[2017-09-10 07:11] LABS: CHLORIDE 103 mmol/L (98-107); POTASSIUM 4.3 mmol/L (3.5-5.1); SODIUM 137 mmol/L (136-145)
[2017-09-10 07:15] LABS: ALBUMIN 2.5 g/dl (3.4-5.0); ALK PHOS 61 U/L (45-117); ANION GAP 8 (8-16); BILIRUBIN,TOTAL 0.5 mg/dL (0.2-1.0); BLOOD UREA NITROGEN 18 mg/dL (7-18); CALCIUM 8.3 mg/dL (8.5-10.1); CO2 26 mmol/L (21-32); CREATININE 0.7 mg/dL (0.55-1.02); GLUCOSE,RANDOM 71 mg/dL (74-106); MAGNESIUM 1.9 mg/dL (1.8-2.4); PHOSPHOROUS 3.7 mg/dL (2.5-4.9); SGOT/AST 16 U/L (15-37); SGPT/ALT 15 U/L (12-78); TOT PROT 6.1 g/dl (6.4-8.2)
[2017-09-10] MEDS ORDERED: PATIENT'S OWN MEDICATION (NON-FORMULARY) (Mirabegron [Myrbetriq] 50 MG) PO SCH (10:00)
[2017-09-10] MEDS ORDERED: PATIENT'S OWN MEDICATION (NON-FORMULARY) (Levothyroxine Sodium [Synthroid] 137 MCG) PO SCH (10:00)
[2017-09-10] MEDS: POLYETHYLENE GLYCOL 3350 119 GM BTL PO SCH (10:27)
[2017-09-10] MEDS: DULoxetine HCL 30 MG CAPSULE.DR (FP) PO SCH (10:27)
[2017-09-10] MEDS: OXYBUTYNIN CHLORIDE 5 MG TABLET PO SCH ×2 (10:27→22:02)
[2017-09-10] MEDS: amLODIPine BESYLATE 5 MG TABLET (FP) PO SCH (10:28)
[2017-09-10] MEDS: LISINOPRIL 10 MG TABLET (FP) PO SCH (10:28)
[2017-09-10] MEDS: CHLORHEXIDINE GLUCONATE 0.12% 15ML CUP MM SCH (11:30)
[2017-09-10] MEDS: BUDESONIDE/FORMETEROL FUMARATE 160/4.5 mcg INHALER IH SCH ×2 (11:30→22:16)
--- NOTE | 2017-09-10 14:14 | EKG ---
Test Reason : Blood Pressure : / mmHG Vent. Rate : 083 BPM Atrial Rate : 083 BPM P-R Int : 156 ms QRS Dur : 118 ms QT Int : 412 ms P-R-T Axes : 063 -41 046 degrees QTc Int : 484 ms NORMAL SINUS RHYTHM LEFT AXIS DEVIATION RIGHT BUNDLE BRANCH BLOCK ABNORMAL ECG WHEN COMPARED WITH ECG OF 15-JUN-2017 23:40, QT HAS LENGTHENED Confirmed by KEY MCCOY MD ([id number]) on 09/10/2017 2:14:04 PM Referred By: Confirmed By:KEY MCCOY MD
--- NOTE | 2017-09-10 17:11 | PN ---
Teaching Attending Note Name of Resident: José Miguel Vyas ATTENDING PHYSICIAN STATEMENT I saw and evaluated the patient. I reviewed the resident's note and discussed the case with the resident. I agree with the resident's findings and plan as documented. SUBJECTIVE:states pain is controlled. dnies CP, SOB, fever, chills, N/V/C/D, LOC OBJECTIVE: Last Vital Signs Temp Pulse Resp BP Pulse Ox 98.0 F 86 18 133/63 99 09/10/17 16:35 09/10/17 16:35 09/10/17 16:35 09/10/17 16:35 09/10/17 16:35 General NAD Extremities tenderness to L hip. refuses to move the leg. ASSESSMENT AND PLAN: 87 yo woman w/ COPD, lung Ca s/p lung resection, HTN, hypothyroidism, multiple mechanical falls, care home resident who was brought in to hospital after she slipped from chair in her care home onto her left buttock 1. Mechanical fall- c/o L hip pain. imaging done and negative for fracture. PT assessment and only able to walk 20Ft. would benefit from DANELLE placement. cont pain control with lidocaine patch 2. leukocytosis- liekly reactive. no signs of infection. no indication for abx 3. COPD- no exacerbation. cont inhalers 4. HTN- controlled 5. Hypothyroid- cont LT4 6. DVTppx- hep sq 7. pt would benefit from DANELLE placement.
--- NOTE | 2017-09-10 19:18 | PN ---
Progress Note (short form) - Note Progress Note: Paged by RN due to abnormal physical finding on nurses receptionist clerk to floor. Attended to patient and saw a small plastic tubing exiting pt superior to the right hip. upon palpation pt reports it's tender. no erythema, purulence, or other drainage from "tubing." A/P foreign body noted CT lower extremity reviewed and shows radioopague tubing in subcutaneous tissues without a definite point of termination Instructed to put 4x4 bandage on top of site to mitigate change of infection
--- NOTE | 2017-09-10 20:22 | PN ---
Physical Exam: SUBJECTIVE: Patient seen and examined at bedside. No complaints. OBJECTIVE: Vital Signs Period Temp Pulse Resp BP Sys/[place]son Pulse Ox Last 24 Hr 97.4 F-98.5 F 85-89 18-20 124-144/63-78 98-99 Gen: AAOx2 to person and year. Thinks she is in [place] HEENT: bitemporal wasting. adentulous. PERRLA, EOMI Neck: supple, no jvd Cardio: RRR, nl s1s2, no m/r/g Pulm: CTA b/l Abd: soft nontender Neuro: no focal deficits Ext: L hip very tender to soft palpation. Note: Pt refused further exam Laboratory Results - last 24 hr 09/10/17 09/10/17 06:05 06:05 WBC 6.8 D RBC 4.28 Hgb 12.1 Hct 36.6 MCV 85.3 MCH 28.2 MCHC 33.0 RDW 14.4 Plt Count 327 MPV 8.9 Sodium 137 Potassium 4.3 Chloride 103 Carbon Dioxide 26 Anion Gap 8 BUN 18 Creatinine 0.7 Creat Clearance w eGFR > 60 Random Glucose 71 L Calcium 8.3 L Phosphorus 3.7 Magnesium 1.9 Total Bilirubin 0.5 AST 16 ALT 15 Alkaline Phosphatase 61 Total Protein 6.1 L Albumin 2.5 L Active Medications Generic Name Dose Route Start Last Admin Trade Name Freq PRN Reason Stop Dose Admin Amlodipine Besylate 5 mg 09/10/17 10:00 09/10/17 10:28 Norvasc - PO 5 mg DAILY YNES Administration Artificial Tears 1 drop 09/09/17 23:59 Artificial Tears OU QID PRN DRY EYES Budesonide/Formoterol Fumarate 1 puff 09/10/17 10:00 09/10/17 11:30 Symbicort 160/4.5mcg - IH 1 puff BID YNES Administration Chlorhexidine Gluconate 15 ml 09/10/17 10:00 09/10/17 11:30 Peridex - MM 15 ml DAILY YNES Administration Duloxetine HCl 60 mg 09/10/17 10:00 09/10/17 10:27 Cymbalta - PO 60 mg DAILY YNES Administration Heparin Sodium (Porcine) 5,000 unit 09/10/17 06:00 09/10/17 15:50 Heparin - SQ 5,000 unit TID YNES Administration Levothyroxine Sodium 112 mcg/ 137 mcg 09/10/17 07:00 09/10/17 06:35 Levothyroxine Sodium 25 mcg PO 137 mcg DAILY@0700 YNES Administration Lisinopril 10 mg 09/10/17 10:00 09/10/17 10:28 Prinivil PO 10 mg DAILY YNES Administration Mirtazapine 7.5 mg 09/10/17 22:00 Remeron - PO HS YNES Miscellaneous 1 each 09/09/17 22:00 09/09/17 23:02 Lidoderm Patch Removal MC 1 each DAILY@2200 YNES Administration Montelukast Sodium 10 mg 09/10/17 22:00 Singulair - PO HS YNES Non-Formulary Medication 50 mg 09/10/17 10:00 Mirabegron [Myrbetriq] PO DAILY YNES Oxybutynin Chloride 5 mg 09/10/17 10:00 09/10/17 10:27 Ditropan - PO 5 mg BID YNES Administration Polyethylene Glycol 17 gm 09/10/17 10:00 09/10/17 10:27 Miralax (For Daily Use) - PO 17 grams DAILY YNES Administration ASSESSMENT/PLAN: 87 yo woman w/ COPD, lung Ca s/p lung resection, HTN, hypothyroidism, multiple mechanical falls, jail resident who was brought in to hospital after she slipped from chair in her jail onto her left hip/buttock #Fall -L hip pain -CT LLE: no fractures noted. study was limited because of prior hip replacements -PT: pt walked 20 feet -Lidocaine patch #COPD -controlled -Symbicort -Singulair #HTN -controlled -Lisinopril -Norvasc #Hypothyroid -Synthroid #FEN -Not on fluids -lytes wnl -Na controlled #PPx -Hep sub q #dispo -admit for inability to walk 2/2 fall on L hip José Miguel Vyas MD PGY-1 IM Visit type - Emergency Visit Emergency Visit: Yes ED Registration Date: 09/10/17 Care time: The patient presented to the Emergency Department on the above date and was hospitalized for further evaluation of their emergent condition. - New Patient This patient is new to me today: Yes Date on this admission: 09/10/17 - Critical Care Critical Care patient: No - Discharge Referral Referred to [facility] Med P.C.: No
[2017-09-10] MEDS: MIRTAZAPINE 15 MG TABLET (FP) PO SCH (22:04)
[2017-09-10] MEDS: LIDOCAINE PATCH REMOVAL MC SCH (22:16)
[2017-09-10] MEDS: MONTELUKAST NA 10 MG TABLET PO SCH (22:16)
[2017-09-11] MEDS ORDERED: LEVOTHYROXINE NA 112 MCG TABLET (FP) ONE (06:27)
[2017-09-11] MEDS ORDERED: LEVOTHYROXINE NA 25 MCG TABLET (FP) ONE (06:27)
[2017-09-11] MEDS: HEPARIN NA (PORCINE) 5,000 UNITS/ML 1ML VIAL SQ SCH ×3 (06:45→21:36)
[2017-09-11] MEDS: LEVOTHYROXINE 112 MCG, LEVOTHYROXINE 25 MCG PO SCH (06:45)
--- NOTE | 2017-09-11 08:47 | PN ---
Physical Exam: SUBJECTIVE: Patient seen and examined at bedside. Last night, small foreign body was discovered by nurse at the R posterior iliac region. Review of CT revealed a small radioopaque tube. When asked about it, pt does not remember exactly what it is or why it's there, but thought it might have something to do with her urine. Pt also complains of irritation casued by denture implant in left lower jaw. OBJECTIVE: Vital Signs Period Temp Pulse Resp BP Sys/[place] Pulse Ox Last 24 Hr 98.0 F-98.4 F 79-88 18-20 124-137/55-89 97-99 Gen: AAOx3. NAD HEENT: bitemporal wasting. adentulous. Metal sol in L lower jaw for securing dentures. PERRLA, EOMI Neck: supple, no jvd Cardio: RRR, nl s1s2, no m/r/g Pulm: CTA b/l Abd: soft nontender Neuro: no focal deficits Ext: L hip very tender to soft palpation. R posterior iliac with 1/2 cm lesion. evidently a protruding foreign body. Very mild tenderness to palpation. Active Medications Generic Name Dose Route Start Last Admin Trade Name Freq PRN Reason Stop Dose Admin Amlodipine Besylate 5 mg 09/10/17 10:00 09/10/17 10:28 Norvasc - PO 5 mg DAILY YNES Administration Artificial Tears 1 drop 09/09/17 23:59 Artificial Tears OU QID PRN DRY EYES Budesonide/Formoterol Fumarate 1 puff 09/10/17 10:00 09/10/17 22:16 Symbicort 160/4.5mcg - IH 1 puff BID YNES Administration Chlorhexidine Gluconate 15 ml 09/10/17 10:00 09/10/17 11:30 Peridex - MM 15 ml DAILY YNES Administration Duloxetine HCl 60 mg 09/10/17 10:00 09/10/17 10:27 Cymbalta - PO 60 mg DAILY YNES Administration Heparin Sodium (Porcine) 5,000 unit 09/10/17 06:00 09/11/17 06:45 Heparin - SQ 5,000 unit TID YNES Administration Levothyroxine Sodium 112 mcg/ 137 mcg 09/10/17 07:00 09/11/17 06:45 Levothyroxine Sodium 25 mcg PO 137 mcg DAILY@0700 YNES Administration Lisinopril 10 mg 09/10/17 10:00 09/10/17 10:28 Prinivil PO 10 mg DAILY YNES Administration Mirtazapine 7.5 mg 09/10/17 22:00 09/10/17 22:04 Remeron - PO 7.5 mg HS YNES Administration Miscellaneous 1 each 09/09/17 22:00 09/10/17 22:16 Lidoderm Patch Removal MC 1 each DAILY@2200 YNES Administration Montelukast Sodium 10 mg 09/10/17 22:00 09/10/17 22:16 Singulair - PO 10 mg HS YNES Administration Non-Formulary Medication 50 mg 09/10/17 10:00 Mirabegron [Myrbetriq] PO DAILY YNES Oxybutynin Chloride 5 mg 09/10/17 10:00 09/10/17 22:02 Ditropan - PO 5 mg BID YNES Administration Polyethylene Glycol 17 gm 09/10/17 10:00 09/10/17 10:27 Miralax (For Daily Use) - PO 17 grams DAILY YNES Administration ASSESSMENT/PLAN: 87 yo woman w/ COPD, lung Ca s/p lung resection, HTN, hypothyroidism, multiple mechanical falls, senior living resident who was brought in to hospital after she slipped from chair in her senior living onto her left hip/buttock #Foreign body -identified incidentally -pt states it was placed by urologist at [facility] -? bladder stim lead -Not infected appearing -Surg consulted. Rec sending to urologist who placed it for remove #Fall -L hip pain -CT LLE: no fractures noted. study was limited because of prior hip replacements -PT: pt walked 20 feet -Lidocaine patch #COPD -controlled -Symbicort -Singulair #HTN -controlled -Lisinopril -Norvasc #Hypothyroid -Synthroid #FEN -Not on fluids -lytes wnl -Na controlled #PPx -Hep sub q #dispo -admit for inability to walk 2/2 fall on L hip José Miguel Vyas MD PGY-1 IM Visit type - Emergency Visit Emergency Visit: No - New Patient This patient is new to me today: No - Critical Care Critical Care patient: No - Discharge Referral Referred to [facility] Med P.C.: No
[2017-09-11] MEDS: DULoxetine HCL 30 MG CAPSULE.DR (FP) PO SCH (10:28)
[2017-09-11] MEDS: OXYBUTYNIN CHLORIDE 5 MG TABLET PO SCH ×2 (10:28→21:36)
[2017-09-11] MEDS: POLYETHYLENE GLYCOL 3350 119 GM BTL PO SCH (10:28)
[2017-09-11] MEDS: LISINOPRIL 10 MG TABLET (FP) PO SCH (10:28)
[2017-09-11] MEDS: BUDESONIDE/FORMETEROL FUMARATE 160/4.5 mcg INHALER IH SCH ×2 (10:28→21:37)
[2017-09-11] MEDS: amLODIPine BESYLATE 5 MG TABLET (FP) PO SCH (10:28)
[2017-09-11] MEDS: CHLORHEXIDINE GLUCONATE 0.12% 15ML CUP MM SCH (12:29)
--- NOTE | 2017-09-11 15:23 | PN ---
Teaching Attending Note Name of Resident: José Miguel Vyas ATTENDING PHYSICIAN STATEMENT I saw and evaluated the patient. I reviewed the resident's note and discussed the case with the resident. I agree with the resident's findings and plan as documented with exceptions below. SUBJECTIVE: Patient seen and examined, Feels better, left leg/buttock pain and ambulation improved. Right flank foregin body, reports ?2 years ago with a urologist. Unclear why not removed. no back pain or new concerns. OBJECTIVE: Vital Signs Period Temp Pulse Resp BP Sys/Richardson Pulse Ox Last 24 Hr 97.5 F-98.4 F 78-88 18-20 113-137/55-89 97-99 Intake & Output 09/08/17 09/09/17 09/10/17 09/11/17 23:59 23:59 23:59 23:59 Intake Total 350 637 Balance 350 637 Weight 145 lb 145 lb General: sitting in chair in no acute distress Extremities: minimal limitation of ROM at left hip Abdomen: right flank small foreign body protruding, extending under skin, with induration but erythema or tenderness musculoskeletal: small ecchymotic area over mid thoracic spine, but no otherwise tenderness or limitation in ROM Home Medication List Medication Instructions Recorded Confirmed Type Duloxetine HCl [Cymbalta] 60 mg PO DAILY 04/30/17 09/09/17 History Mirabegron [Myrbetriq] 50 mg PO DAILY 04/30/17 09/09/17 History Mirtazapine [Remeron -] 7.5 mg PO DAILY 04/30/17 09/09/17 History Montelukast Sodium [Singulair] 10 mg PO DAILY 04/30/17 09/09/17 History Polyethylene Glycol 3350 1,700 gm PO DAILY 06/15/17 09/09/17 History [Laxaclear] Acetaminophen [Mapap] 650 mg PO PRN PRN 09/09/17 09/09/17 History Bacitracin - [Bacitracin Topical 1 applic TP DAILY 09/09/17 09/09/17 History Ointment -] Chlorhexidine Gluconate 15 ml MM DAILY 09/09/17 09/09/17 History Sulfamethoxazole/Trimethoprim 1 each PO BID 09/09/17 09/09/17 History [Bactrim Ds Tablet] Active Medications Generic Name Dose Route Start Last Admin Trade Name Freq PRN Reason Stop Dose Admin Amlodipine Besylate 5 mg 09/10/17 10:00 09/11/17 10:28 Norvasc - PO 5 mg DAILY YNES Administration Artificial Tears 1 drop 09/09/17 23:59 Artificial Tears OU QID PRN DRY EYES Budesonide/Formoterol Fumarate 1 puff 09/10/17 10:00 09/11/17 10:28 Symbicort 160/4.5mcg - IH 1 puff BID YNES Administration Chlorhexidine Gluconate 15 ml 09/10/17 10:00 09/11/17 12:29 Peridex - MM 15 ml DAILY YNES Administration Duloxetine HCl 60 mg 09/10/17 10:00 09/11/17 10:28 Cymbalta - PO 60 mg DAILY YNES Administration Heparin Sodium (Porcine) 5,000 unit 09/10/17 06:00 09/11/17 14:34 Heparin - SQ 5,000 unit TID YNES Administration Levothyroxine Sodium 112 mcg/ 137 mcg 09/10/17 07:00 09/11/17 06:45 Levothyroxine Sodium 25 mcg PO 137 mcg DAILY@0700 YNES Administration Lisinopril 10 mg 09/10/17 10:00 09/11/17 10:28 Prinivil PO 10 mg DAILY YNES Administration Mirtazapine 7.5 mg 09/10/17 22:00 09/10/17 22:04 Remeron - PO 7.5 mg HS YNES Administration Miscellaneous 1 each 09/09/17 22:00 09/10/17 22:16 Lidoderm Patch Removal MC 1 each DAILY@2200 YNES Administration Montelukast Sodium 10 mg 09/10/17 22:00 09/10/17 22:16 Singulair - PO 10 mg HS YNES Administration Non-Formulary Medication 50 mg 09/10/17 10:00 Mirabegron [Myrbetriq] PO DAILY YNES Oxybutynin Chloride 5 mg 09/10/17 10:00 09/11/17 10:28 Ditropan - PO 5 mg BID YNES Administration Polyethylene Glycol 17 gm 09/10/17 10:00 09/11/17 10:28 Miralax (For Daily Use) - PO 17 grams DAILY YNES Administration ASSESSMENT AND PLAN: 87 yo woman w/ COPD, lung Ca s/p lung resection, HTN, hypothyroidism, multiple mechanical falls, alf resident who was brought in to hospital after she slipped from chair in her alf onto her left buttock -Mechanical fall, fracture ruled out -Right flank foreign body -Asymptomatic bacteruria -Leucocytosis, likely reactive -COPD, no evidence of exacerbation -HTN -Hypothyroidism Plan: PT eval noted, for DANELLE. Surgery input to evaluate right flank foreign body. no evidence of infection. Repeat urinalysis, no symptoms, clean u/a on admission, hold off on antibiotics. DVTPPX dispo planning to DANELLE pending above. Plan discussed with patient in detail, all questions answered.
[2017-09-11 16:24] LABS: URINE APPEARANCE CLEAR; URINE BILIRUBIN NEGATIVE (<2.0 mg/dL); URINE COLOR LTYELLOW; URINE GLUCOSE (UA) NEGATIVE (NEGATIVE); URINE KETONE TRACE (NEGATIVE); URINE LEUK ESTERASE NEGATIVE (NEGATIVE); URINE NITRITE NEGATIVE (NEGATIVE); URINE PROTEIN NEGATIVE (NEGATIVE); URINE UROBILINOGEN NEGATIVE mg/dL (0.2-1.0)
--- NOTE | 2017-09-11 16:26 | PN ---
Progress Note (short form) - Note Progress Note: General Surgery: Pt states that she had a device implanted 2 to 3 years ago to help with bladder control by urology. We were asked to see the patient for a finding of a foreign body on xray. On her hip xray you can see an object near her right iliac crest. On theright posterior hip there is a small opening where there is a protrusion of a white object. No erythema or drainage noted, the area isn't tender. Recommend to either have the patient follow up with the surgeon who placed the device, or consult urology as needed while in the hospital. D/w Dr. Canas and he agrees with the recommended care plan.
[2017-09-11] MEDS ORDERED: oxyCODONE HCL 5 MG TABLET PO PRN (17:28)
[2017-09-11] MEDS ORDERED: PT OWN MED DRAWER 7, Y5N ONE ×2 (19:52→22:20)
[2017-09-11] MEDS: MONTELUKAST NA 10 MG TABLET PO SCH (21:36)
[2017-09-11] MEDS: MIRTAZAPINE 15 MG TABLET (FP) PO SCH (21:37)
[2017-09-11] MEDS: LIDOCAINE PATCH REMOVAL MC SCH (21:37)
[2017-09-12] MEDS: LEVOTHYROXINE 112 MCG, LEVOTHYROXINE 25 MCG PO SCH (06:07)
[2017-09-12] MEDS: HEPARIN NA (PORCINE) 5,000 UNITS/ML 1ML VIAL SQ SCH ×3 (06:07→21:22)
[2017-09-12] MEDS: BUDESONIDE/FORMETEROL FUMARATE 160/4.5 mcg INHALER IH SCH ×2 (09:38→21:24)
[2017-09-12] MEDS: OXYBUTYNIN CHLORIDE 5 MG TABLET PO SCH ×2 (09:39→21:16)
[2017-09-12] MEDS: POLYETHYLENE GLYCOL 3350 119 GM BTL PO SCH (09:39)
[2017-09-12] MEDS: amLODIPine BESYLATE 5 MG TABLET (FP) PO SCH (09:39)
[2017-09-12] MEDS: LISINOPRIL 10 MG TABLET (FP) PO SCH (09:39)
[2017-09-12] MEDS: DULoxetine HCL 30 MG CAPSULE.DR (FP) PO SCH (09:39)
[2017-09-12] MEDS: CHLORHEXIDINE GLUCONATE 0.12% 15ML CUP MM SCH (09:40)
[2017-09-12] MEDS ORDERED: ACETAMINOPHEN 325 MG TABLET (FP) PO PRN (17:46)
--- NOTE | 2017-09-12 17:46 | PN ---
Teaching Attending Note Name of Resident: José Miguel Vyas ATTENDING PHYSICIAN STATEMENT I saw and evaluated the patient. I reviewed the resident's note and discussed the case with the resident. I agree with the resident's findings and plan as documented with exceptions below. SUBJECTIVE: Patient seen and examined. no complaints. No fevers/chills, nausea, vomiting, dysuria, frequency, urgency, back or abdominal pain. OBJECTIVE: Vital Signs Period Temp Pulse Resp BP Sys/Richardson Pulse Ox Last 24 Hr 97 F-98.4 F 76-88 16-20 120-146/67-74 97-99 Intake & Output 09/09/17 09/10/17 09/11/17 09/12/17 23:59 23:59 23:59 23:59 Intake Total 350 937 200 Output Total 400 Balance 350 537 200 Weight 145 lb 145 lb 145 lb general: sitting in chair in no acute distress Abdomen:soft, NT, ND, positive bowel sounds no CVA or suprapubic tenderness, unchanged foreign body on right flank Home Medications Medication Instructions Recorded Duloxetine HCl [Cymbalta] 60 mg PO DAILY 04/30/17 Mirabegron [Myrbetriq] 50 mg PO DAILY 04/30/17 Mirtazapine [Remeron -] 7.5 mg PO DAILY 04/30/17 Montelukast Sodium [Singulair] 10 mg PO DAILY 04/30/17 Amlodipine Besylate [Norvasc -] 5 mg PO DAILY #30 tablet 05/04/17 Budesonide/Formeterol Fumarate 1 inh IH BID #1 inhaler 05/04/17 [SYMBICORT 160/4.5mcg -] Levothyroxine Sodium [Synthroid] 137 mcg PO DAILY #7 tablet 05/04/17 Lisinopril 10 mg PO DAILY #30 tablet 05/04/17 Oxybutynin Chloride 5 mg PO BID #60 tablet 05/04/17 Polyvinyl Alcohol [Artificial 1 drop OU QID PRN drops 05/04/17 Tears] Polyethylene Glycol 3350 1,700 gm PO DAILY 06/15/17 [Laxaclear] Acetaminophen [Mapap] 650 mg PO PRN PRN 09/09/17 Chlorhexidine Gluconate 15 ml MM DAILY 09/09/17 Active Medications Amlodipine Besylate (Norvasc -) 5 mg PO DAILY [facility]NES Last Admin: 09/12/17 09:39 Dose: 5 mg Artificial Tears (Artificial Tears) 1 drop OU QID PRN PRN Reason: DRY EYES Budesonide/Formoterol Fumarate (Symbicort 160/4.5mcg -) 1 puff IH BID [facility] Last Admin: 09/12/17 09:38 Dose: 1 puff Chlorhexidine Gluconate (Peridex -) 15 ml MM DAILY [facility] Last Admin: 09/12/17 09:40 Dose: 15 ml Duloxetine HCl (Cymbalta -) 60 mg PO DAILY [facility] Last Admin: 09/12/17 09:39 Dose: 60 mg Heparin Sodium (Porcine) (Heparin -) 5,000 unit SQ TID [facility] Last Admin: 09/12/17 13:45 Dose: 5,000 unit Levothyroxine Sodium 112 mcg/ (Levothyroxine Sodium 25 mcg) 137 mcg PO DAILY@ 0700 [facility] Last Admin: 09/12/17 06:07 Dose: 137 mcg Lisinopril (Prinivil) 10 mg PO DAILY [facility] Last Admin: 09/12/17 09:39 Dose: 10 mg Mirtazapine (Remeron -) 7.5 mg PO [facility] Last Admin: 09/11/17 21:37 Dose: 7.5 mg Miscellaneous (Lidoderm Patch Removal) 1 each MC DAILY@2200 [facility] Last Admin: 09/11/17 21:37 Dose: 1 each Montelukast Sodium (Singulair -) 10 mg PO HS [facility] Last Admin: 09/11/17 21:36 Dose: 10 mg Non-Formulary Medication (Mirabegron [Myrbetriq]) 50 mg PO DAILY [facility] Oxybutynin Chloride (Ditropan -) 5 mg PO BID [facility] Last Admin: 09/12/17 09:39 Dose: 5 mg Oxycodone HCl (Roxicodone -) 2.5 mg PO Q6H PRN PRN Reason: PAIN LEVEL 1-5 Polyethylene Glycol (Miralax (For Daily Use) -) 17 gm PO DAILY [facility] Last Admin: 09/12/17 09:39 Dose: Not Given Microbiology 09/09/17 16:35 Urine - Urine Clean Catch Urine Culture - Final Klebsiella Pneumoniae ASSESSMENT AND PLAN: 87 yo woman w/ COPD, lung Ca s/p lung resection, HTN, hypothyroidism, multiple mechanical falls, [facility] who was brought in to hospital after she slipped from chair in her [facility]itentiary onto her left buttock -Mechanical fall, fracture ruled out -Right flank foreign body -Asymptomatic bacteruria -Leucocytosis, likely reactive -COPD, no evidence of exacerbation -HTN -Hypothyroidism Plan: PT eval noted, for [facility]. Surgery input noted, outpatient urology follow up. No acute concerns for infection. repeat ua non concerning, no clinical evidence of infection or no symptoms. No indication for antibiotisc. DVTPPX dispo planning to [facility] pending bed availability. Plan discussed with patient in detail, all questions answered.
--- NOTE | 2017-09-12 17:55 | PN ---
Physical Exam: SUBJECTIVE: Patient seen and examined at bedside. No acute events. Sleeping quietly. Refused exam this morning OBJECTIVE: Vital Signs Period Temp Pulse Resp BP Sys/Richardson Pulse Ox Last 24 Hr 97 F-98.4 F 76-88 16-20 118-146/60-74 97-99 Pt refused exam. Sleeping quietly in no distress. Active Medications Generic Name Dose Route Start Last Admin Trade Name Freq PRN Reason Stop Dose Admin Acetaminophen 650 mg 09/12/17 17:46 Tylenol - PO Q4H PRN PAIN LEVEL 6-10 Amlodipine Besylate 5 mg 09/10/17 10:00 09/12/17 09:39 Norvasc - PO 5 mg DAILY [facility]NES Administration Artificial Tears 1 drop 09/09/17 23:59 Artificial Tears OU QID PRN DRY EYES Budesonide/Formoterol Fumarate 1 puff 09/10/17 10:00 09/12/17 09:38 Symbicort 160/4.5mcg - IH 1 puff BID YNES Administration Chlorhexidine Gluconate 15 ml 09/10/17 10:00 09/12/17 09:40 Peridex - MM 15 ml DAILY YNES Administration Duloxetine HCl 60 mg 09/10/17 10:00 09/12/17 09:39 Cymbalta - PO 60 mg DAILY [facility]NES Administration Heparin Sodium (Porcine) 5,000 unit 09/10/17 06:00 09/12/17 13:45 Heparin - SQ 5,000 unit TID YNES Administration Levothyroxine Sodium 112 mcg/ 137 mcg 09/10/17 07:00 09/12/17 06:07 Levothyroxine Sodium 25 mcg PO 137 mcg DAILY@0700 YNES Administration Lisinopril 10 mg 09/10/17 10:00 09/12/17 09:39 Prinivil PO 10 mg DAILY YNES Administration Mirtazapine 7.5 mg 09/10/17 22:00 09/11/17 21:37 Remeron - PO 7.5 mg HS YNES Administration Miscellaneous 1 each 09/09/17 22:00 09/11/17 21:37 Lidoderm Patch Removal MC 1 each DAILY@2200 [facility]NES Administration Montelukast Sodium 10 mg 09/10/17 22:00 09/11/17 21:36 Singulair - PO 10 mg HS YNES Administration Non-Formulary Medication 50 mg 09/10/17 10:00 Mirabegron [Myrbetriq] PO DAILY YNES Oxybutynin Chloride 5 mg 09/10/17 10:00 09/12/17 09:39 Ditropan - PO 5 mg BID YNES Administration Polyethylene Glycol 17 gm 09/10/17 10:00 09/12/17 09:39 Miralax (For Daily Use) - PO Not Given DAILY [facility]NES ASSESSMENT/PLAN: 87 yo woman w/ COPD, lung Ca s/p lung resection, HTN, hypothyroidism, multiple mechanical falls, 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 bladder stim lead -Not infected appearing -Surg consulted. Rec sending to urologist who placed it for remove #Fall -L hip pain -CT LLE: no fractures noted. study was limited because of prior hip replacements -PT: pt walked 20 feet then 30 ft -Lidocaine patch -For SNF tomorrow #COPD -controlled -Symbicort -Singulair #HTN -controlled -Lisinopril -Norvasc #Hypothyroid -Synthroid #FEN -Not on fluids -lytes wnl -Na controlled #PPx -Hep sub q #dispo -admit for inability to walk 2/2 fall on L hip José Miguel Vyas MD PGY-1 IM Visit type - Emergency Visit Emergency Visit: No - New Patient This patient is new to me today: No - Critical Care Critical Care patient: No - Discharge Referral Referred to [facility] Med P.C.: No
[2017-09-12] MEDS: MONTELUKAST NA 10 MG TABLET PO SCH (21:15)
[2017-09-12] MEDS: MIRTAZAPINE 15 MG TABLET (FP) PO SCH (21:15)
[2017-09-12] MEDS: LIDOCAINE PATCH REMOVAL MC SCH (21:22)
[2017-09-13] MEDS: LIDOCAINE PATCH REMOVAL MC SCH (00:36)
[2017-09-13] MEDS ORDERED: LEVOTHYROXINE NA 25 MCG TABLET (FP) ONE (05:03)
[2017-09-13] MEDS ORDERED: LEVOTHYROXINE NA 112 MCG TABLET (FP) ONE (05:03)
[2017-09-13] MEDS: HEPARIN NA (PORCINE) 5,000 UNITS/ML 1ML VIAL SQ SCH (06:19)
[2017-09-13] MEDS: LEVOTHYROXINE 112 MCG, LEVOTHYROXINE 25 MCG PO SCH (06:20)
--- NOTE | 2017-09-13 07:38 | PN ---
Physical Exam: SUBJECTIVE: Patient seen and examined at bedside. Limited participation with exam. OBJECTIVE: Vital Signs Period Temp Pulse Resp BP Sys/Richardson Pulse Ox Last 24 Hr 97.5 F-98.6 F 83-84 16-18 118-125/60-67 97-99 Gen: sleeping comfortably. NAD HEENT: bitemporal wasting. adentulous with implant for dentures. PERRLA, EOMI Neck: supple, no jvd Cardio: RRR, nl s1s2, no m/r/g Pulm: CTA b/l Abd: soft nontender Neuro: no focal deficits Ext: L hip very tender to soft palpation. Note: Pt refused further exam Active Medications Generic Name Dose Route Start Last Admin Trade Name Freq PRN Reason Stop Dose Admin Acetaminophen 650 mg 09/12/17 17:46 Tylenol - PO Q4H PRN PAIN LEVEL 6-10 Amlodipine Besylate 5 mg 09/10/17 10:00 09/12/17 09:39 Norvasc - PO 5 mg DAILY YNES Administration Artificial Tears 1 drop 09/09/17 23:59 Artificial Tears OU QID PRN DRY EYES Budesonide/Formoterol Fumarate 1 puff 09/10/17 10:00 09/12/17 21:24 Symbicort 160/4.5mcg - IH 1 puff BID YNES Administration Chlorhexidine Gluconate 15 ml 09/10/17 10:00 09/12/17 09:40 Peridex - MM 15 ml DAILY YNES Administration Duloxetine HCl 60 mg 09/10/17 10:00 09/12/17 09:39 Cymbalta - PO 60 mg DAILY YNES Administration Heparin Sodium (Porcine) 5,000 unit 09/10/17 06:00 09/13/17 06:19 Heparin - SQ 5,000 unit TID YNES Administration Levothyroxine Sodium 112 mcg/ 137 mcg 09/10/17 07:00 09/13/17 06:20 Levothyroxine Sodium 25 mcg PO 137 mcg DAILY@0700 YNES Administration Lisinopril 10 mg 09/10/17 10:00 09/12/17 09:39 Prinivil PO 10 mg DAILY YNES Administration Mirtazapine 7.5 mg 09/10/17 22:00 09/12/17 21:15 Remeron - PO 7.5 mg HS YNES Administration Montelukast Sodium 10 mg 09/10/17 22:00 09/12/17 21:15 Singulair - PO 10 mg HS YNES Administration Non-Formulary Medication 50 mg 09/10/17 10:00 Mirabegron [Myrbetriq] PO DAILY YNES Oxybutynin Chloride 5 mg 09/10/17 10:00 09/12/17 21:16 Ditropan - PO 5 mg BID YNES Administration Polyethylene Glycol 17 gm 09/10/17 10:00 09/12/17 09:39 Miralax (For Daily Use) - PO Not Given DAILY [facility] ASSESSMENT/PLAN:
[2017-09-13] MEDS: OXYBUTYNIN CHLORIDE 5 MG TABLET PO SCH (11:14)
[2017-09-13] MEDS: DULoxetine HCL 30 MG CAPSULE.DR (FP) PO SCH (11:14)
[2017-09-13] MEDS: LISINOPRIL 10 MG TABLET (FP) PO SCH (11:15)
[2017-09-13] MEDS: amLODIPine BESYLATE 5 MG TABLET (FP) PO SCH (11:15)
[2017-09-13] MEDS ORDERED: PT OWN MED DRAWER 7, Y5N ONE (11:16)
[2017-09-13] MEDS: CHLORHEXIDINE GLUCONATE 0.12% 15ML CUP MM SCH (11:17)
[2017-09-13] MEDS: POLYETHYLENE GLYCOL 3350 119 GM BTL PO SCH (11:22)
--- NOTE | 2017-09-13 12:27 | PN ---
Teaching Attending Note Name of Resident: José Miguel Vyas ATTENDING PHYSICIAN STATEMENT I saw and evaluated the patient. I reviewed the resident's note and discussed the case with the resident. I agree with the resident's findings and plan as documented with exceptions below. SUBJECTIVE: patient seen and examined. no complaints, feeling better, no new fevers, chills , abdominal, back or urinary symptoms. OBJECTIVE: Vital Signs Period Temp Pulse Resp BP Sys/Richardson Pulse Ox Last 24 Hr 98.3 F-98.6 F 83-84 18-18 118-124/60-64 97 Intake & Output 09/10/17 09/11/17 09/12/17 09/13/17 23:59 23:59 23:59 23:59 Intake Total 350 937 600 50 Output Total 400 Balance 350 537 600 50 Weight 145 lb 145 lb General: sitting in no acute distress Abdomen:soft, NT, ND, no CVA tenderness, no suprapubic tenderness, foreign body right flank region, with no erythema/tenderness or warmth ASSESSMENT AND PLAN: 87 yo woman w/ COPD, lung Ca s/p lung resection, HTN, hypothyroidism, multiple mechanical falls, [facility] resident who was brought in to hospital after she slipped from chair in her halfway onto her left buttock -Mechanical fall, fracture ruled out -Right flank foreign body -Asymptomatic bacteruria -Leucocytosis, likely reactive -COPD, no evidence of exacerbation -HTN -Hypothyroidism Plan: PT eval noted, for [facility]. Surgery input noted, outpatient urology follow up. No acute concerns for infection. repeat ua non concerning, no clinical evidence of infection or no symptoms. No indication for antibiotics. DVTPPX dispo dc/ to [facility] today. Plan discussed with patient in detail, all questions answered.
[2017-09-13] MEDS: BUDESONIDE/FORMETEROL FUMARATE 160/4.5 mcg INHALER IH SCH (12:40)
[2017-09-13 14:22] VITALS: BP 120/65; PULSE 85; TEMP 97.9
--- NOTE | 2017-09-13 15:33 | DS ---
Physical Exam: SUBJECTIVE: Patient seen and examined OBJECTIVE: Vital Signs Period Temp Pulse Resp BP Sys/Richardson Pulse Ox Last 24 Hr 97.9 F-98.6 F 83-86 18-20 118-124/60-72 97-97 PHYSICAL EXAM Gen: sleeping comfortably. NAD HEENT: bitemporal wasting. adentulous with implant for dentures. PERRLA, EOMI Neck: supple, no jvd Cardio: RRR, nl s1s2, no m/r/g Pulm: CTA b/l Abd: soft nontender Neuro: no focal deficits Ext: L hip tender to soft palpation. LABS HOSPITAL COURSE: Date of Admission:09/10/17 Date of Discharge: 09/13/17 87 yo woman w/ COPD, lung Ca s/p lung resection, HTN, hypothyroidism, multiple mechanical falls, [facility] resident who was brought in to hospital after she slipped from chair in her [facility] onto her left hip/buttock Pt presented with L hip pain after having fallen on her left hip. CT of LLE showed no fractures, though it was a limited study because of prior hip replacements. Pt was seen by PT, but was only able to walk 20 feet then 30 ft the next day thus necessitating SNF placement. During her stay, a foreign body was discovered on the pt's posterior iliac region of back/hip. Pt stated it was placed by urologist at [facility], but did not know what it was. It may be a bladder stimulator lead. It was not infected. Surgery was consulted. They recommended returning to the urologist who placed the device to ask about for removal. Pt had hx of COPD, which was well controlled during her hospital stay with Symbicort, and Singulair. Pt had hx of HTN, which was controlled on Lisinopril and Norvasc. Pt had hx of Hypothyroid, which was controlled on Synthroid. Pt is stable for discharge home. Minutes to complete discharge: 30 Discharge Summary Reason For Visit: FALL, UNABLE TO WALK Condition: Good - Instructions Diet, Activity, Other Instructions: You were in the hospital because of a fall and an inability to walk. In the hospital, you were found to have a small foreign body in the skin of your back. It might be part of a bladder stimulator. You should see the urologist who placed the device as soon as possible to have it removed or replaced. You will be discharged to a rehab facility. Once you get home, make sure you use any assistive devices you need and make sure your walkways are clear at home. Take your time getting up and sitting down, and ask for help if you need it. If you notice any fevers, chills, belly or back pain or urinary complaints, notify your doctor immediately to determine if you need antibiotics. Referrals: ON STAFF,NOT [Primary Care Provider] - 1 Week Disposition: [facility] - Home Medications Comprehensive Discharge Medication List: Ambulatory Orders Duloxetine HCl [Cymbalta] 60 mg PO DAILY 04/30/17 Mirabegron [Myrbetriq] 50 mg PO DAILY 04/30/17 Mirtazapine [Remeron -] 7.5 mg PO DAILY 04/30/17 Montelukast Sodium [Singulair] 10 mg PO DAILY 04/30/17 Amlodipine Besylate [Norvasc -] 5 mg PO DAILY #30 tablet 05/04/17 Budesonide/Formeterol Fumarate [SYMBICORT 160/4.5mcg -] 1 inh IH BID #1 inhaler 05/04/17 Levothyroxine Sodium [Synthroid] 137 mcg PO DAILY #7 tablet 05/04/17 Lisinopril 10 mg PO DAILY #30 tablet 05/04/17 Oxybutynin Chloride 5 mg PO BID #60 tablet 05/04/17 Polyvinyl Alcohol [Artificial Tears] 1 drop OU QID PRN drops 05/04/17 Polyethylene Glycol 3350 [Laxaclear] 1,700 gm PO DAILY 06/15/17 Acetaminophen [Mapap] 650 mg PO PRN PRN 09/09/17 Chlorhexidine Gluconate 15 ml MM DAILY 09/09/17 This patient is new to me today: No Emergency Visit: No Critical Care patient: No - Discharge Referral Referred to [facility] Med P.C.: No
== END 2017-09-13 15:02 | DRG 605 ==
LOC: JER 14:23 → JERBED 20:13 → OBSVTOIN 09-10 16:08 → J7W 09-10 17:30
PROVIDERS: ADMIT Internal Medicine; ATTEND Hospitalist
DX: S70.01XA Contusion of right hip, initial encounter (principal); W19.XXXA Unspecified fall, initial encounter; Y93.9 Activity, unspecified; Y92.89 Other specified places as the place of occurrence of the external cause; Y99.9 Unspecified external cause status; I10 Essential (primary) hypertension; E03.9 Hypothyroidism, unspecified; J44.9 Chronic obstructive pulmonary disease, unspecified; D72.829 Elevated white blood cell count, unspecified
CPT/HCPCS: 36415; 71045-TC-FY; 73523-TC-FY; 73700-TC-RT; 80053; 81003; 81015; 83735; 84100; 85025; 85027; 85610; 85730; 86850; 86900; 86901; 87086; 87186; 93005; 93010; 97116-GP; 97162-GP; 99283-25; G0378; J0131; J1644; J7030

== ENCOUNTER 2017-11-21 16:47 | Inpatient (IN) | payer OTHER, MEDICARE ==
[2017-11-21] MEDS ORDERED: SODIUM CHLORIDE 0.9% 1000 ML INFUS.BAG IV ONE ×2 (17:33→20:38)
--- NOTE | 2017-11-21 17:38 | PDOC ---
History of Present Illness - General Chief Complaint: Weakness Stated Complaint: WEAKNESS Time Seen by Provider: 11/21/17 17:16 History Source: Patient Exam Limitations: No Limitations - History of Present Illness Initial Comments: 11/21/17 17:35 The patient is an 87F with a PMH of R lung resection, HTN, bilateral hip replacements, hypothyroidism, depression, and overactive bladder who presents to the ER from a DC. The patient states that she felt weakness starting last night and it has been constant until today. She states that she has no energy to move and does not feel like doing anything. She states that she cannot eat anything because she has no teeth and has lost weight. She denies CP, SOB, dysuria, cough, hematuria. Past History - Past Medical History Allergies/Adverse Reactions: Allergies Allergy/AdvReac Type Severity Reaction Status Date / Time Sulfa (Sulfonamide Allergy Verified 11/21/17 17:06 Antibiotics) Penicillins AdvReac Verified 11/21/17 17:06 Home Medications: Ambulatory Orders Duloxetine HCl [Cymbalta] 60 mg PO DAILY 04/30/17 Mirabegron [Myrbetriq] 50 mg PO DAILY 04/30/17 Mirtazapine [Remeron -] 7.5 mg PO DAILY 04/30/17 Montelukast Sodium [Singulair] 10 mg PO DAILY 04/30/17 Amlodipine Besylate [Norvasc -] 5 mg PO DAILY #30 tablet 05/04/17 Budesonide/Formeterol Fumarate [SYMBICORT 160/4.5mcg -] 1 inh IH BID #1 inhaler 05/04/17 Levothyroxine Sodium [Synthroid] 137 mcg PO DAILY #7 tablet 05/04/17 Lisinopril 10 mg PO DAILY #30 tablet 05/04/17 Oxybutynin Chloride 5 mg PO BID #60 tablet 05/04/17 Polyvinyl Alcohol [Artificial Tears] 1 drop OU QID PRN drops 05/04/17 Polyethylene Glycol 3350 [Laxaclear] 1,700 gm PO DAILY 06/15/17 Acetaminophen [Mapap] 650 mg PO PRN PRN 09/09/17 Chlorhexidine Gluconate 15 ml MM DAILY 09/09/17 Asthma: Yes COPD: No Disorders: Yes (overactive bladder) HTN: Yes Psychiatric Problems: Yes (depression) Thyroid Disease: Yes - Surgical History Lung Surgery: Yes (partial lung lobectomy) Orthopedic Surgery: Yes (archie hip replacements) - Immunization History Immunization Up to Date: Yes - Suicide/Smoking/Psychosocial Hx Smoking History: Former smoker Have you smoked in the past 12 months: No If you are a former smoker, when did you quit?: 5 yrs ago Information on smoking cessation initiated: No Hx Alcohol Use: No Drug/Substance Use Hx: No Substance Use Type: None Hx Substance Use Treatment: No Review of Systems - Review of Systems Able to Perform ROS?: Yes Comments:: 11/21/17 18:14 GENERAL/CONSTITUTIONAL: Positive for weakness. No fever or chills. HEAD, EYES, EARS, NOSE AND THROAT: No change in vision. No ear pain or discharge. No sore throat. CARDIOVASCULAR: No chest pain, palpitations, or lightheadedness. RESPIRATORY: No cough, wheezing, shortness of breath, or hemoptysis. GASTROINTESTINAL: No nausea, vomiting, diarrhea, constipation, or abdominal pain. GENITOURINARY: No dysuria, frequency, hematuria, or change in urination. MUSCULOSKELETAL: No joint or muscle swelling or pain. No neck or back pain. SKIN: No rash or lesions. NEUROLOGIC: No headache, numbness, tingling, focal weakness, loss of consciousness, or change in strength/sensation. ENDOCRINE: Positive for weight loss. No increased thirst. Is the patient limited Vietnamese proficient: No *Physical Exam - Vital Signs Last Vital Signs Temp Pulse Resp BP Pulse Ox 98.4 F 88 18 105/71 97 11/21/17 17:06 11/21/17 17:06 11/21/17 17:06 11/21/17 17:06 11/21/17 17:06 - Physical Exam Comments: 11/21/17 18:14 GENERAL: Well developed, thin. Awake and alert. No acute distress. HEENT: Normocephalic, atraumatic. Hearing grossly normal. Moist mucous membranes. PERRLA, EOMI. No conjunctival pallor. Sclera are non-icteric. NECK: Supple. Full ROM. No JVD. CARDIOVASCULAR: Regular rate and rhythm. No murmurs, rubs, or gallops. PULMONARY: No evidence of respiratory distress. Lungs clear to auscultation bilaterally. No wheezing, rales or rhonchi. ABDOMINAL: Soft. Non-tender. Non-distended. No rebound or guarding. MUSCULOSKELETAL: Normal range of motion at all joints. No bony deformities or tenderness. EXTREMITIES: No cyanosis. No clubbing. No edema. No calf tenderness or swelling. SKIN: Warm and dry. Normal capillary refill. No rashes. No jaundice. NEUROLOGICAL: Alert, awake, appropriate. Cranial nerves 2-12 grossly intact. Normal speech. Gait is ataxic (pt normally uses walker and does not have one in ER). PSYCHIATRIC: Cooperative. Good eye contact. Appropriate mood and affect. Heart Score/ECG Review #1 General ECG Interpretation: Sinus Rhythm, Normal Rate, Normal Intervals, No acute ischemic changes Compared to previous ECG there are: Changes noted 11/21/17 19:24 NSR vent rate 90 WA 144 QRS 118 QTc 462 RBBB unchanged. LAFB unchanged. Mild T wave inversions in V2. ED Treatment Course - LABORATORY CBC & Chemistry Diagram: 11/21/17 18:40 11/21/17 18:40 - RADIOLOGY Radiology Studies Ordered: Category Date Time Status HEAD CT WITHOUT CONTRAST [CT] Stat CT Scan 11/21/17 17:30 Ordered CHEST X-RAY PORTABLE* [RAD] Stat Radiology 11/21/17 17:28 Ordered Medical Decision Making - Medical Decision Making 11/21/17 18:15 The patient is an 87F with an extensive PMH who presents to the ER with complaints of weakness. The patient had a difficult time getting up out of bed to use the restroom. Will order EKG, labs, and CTH to r/o occult causes of weakness. Will hydrate. Pending labs, EKG, and imaging. 11/21/17 20:55 WBC of 20.4. Previous urine cx were sensitive to meropenem. Will order straight cath and abx. Hospitalist paged for admission. 11/21/17 21:14 I have endorsed the pt to Dr. Ricardo for admission. *DC/Admit/Observation/Transfer Diagnosis at time of Disposition: Weight loss, Weakness generalized UTI (urinary tract infection) Qualifiers: Urinary tract infection type: site unspecified Hematuria presence: without hematuria Qualified Code(s): N39.0 - Urinary tract infection, site not specified - Discharge Dispostion Condition at time of disposition: Guarded Decision to Admit order: Yes - Referrals Referrals: Jesus White MD [Primary Care Provider] - - Patient Instructions - Post Discharge Activity
[2017-11-21 18:58] LABS: BASO % 1.3 % (0-2.0); EOS % 0.1 % (0-4.5); HEMATOCRIT 40.2 % (32.4-45.2); HEMOGLOBIN 13.1 GM/dL (10.7-15.3); LYMPH % 2.5 % (8-40); MCH 28.5 pg (25.7-33.7); MCHC 32.7 g/dl (32.0-36.0); MEAN PLT VOLUME 9.4 fl (7.5-11.1); MONO % 8.7 % (3.8-10.2); NEUT % 87.4 % (42.8-82.8); PLATELET COUNT 362 K/MM3 (134-434); RBC 4.61 M/mm3 (3.60-5.2); RDW 14.8 % (11.6-15.6); WHITE BLOOD COUNT 20.4 K/mm3 (4.0-10.0)
[2017-11-21 19:31] LABS: ALK PHOS 87 U/L (45-117); BILIRUBIN,TOTAL 0.7 mg/dL (0.2-1.0); CREATININE 0.8 mg/dL (0.55-1.02); SGOT/AST 12 U/L (15-37); SGPT/ALT 14 U/L (12-78); TOT PROT 6.8 g/dl (6.4-8.2)
[2017-11-21 19:32] LABS: ANION GAP 10 MMOL/L (8-16); BLOOD UREA NITROGEN 23 mg/dL (7-18); CHLORIDE 102 mmol/L (98-107); CO2 25 mmol/L (21-32); GLUCOSE,RANDOM 103 mg/dL (74-106); POTASSIUM 4.4 mmol/L (3.5-5.1); SODIUM 137 mmol/L (136-145)
[2017-11-21 19:33] LABS: ALBUMIN 3.2 g/dl (3.4-5.0); MAGNESIUM 2.2 mg/dL (1.8-2.4)
--- NOTE | 2017-11-21 20:34 | PDOC ---
Attending Attestation - HPI HPI: 11/21/17 21:14 The patient is a 87 year old female brought via EMS from long term, with a significant past medical history of R lung resection, HTN, bilateral hip replacements, hypothyroidism, depression, and overactive bladder, who presents to the ED complaining of weakness that has been constant since yesterday. She states that she has no energy to move and does not feel like doing anything. She states that she cannot eat anything because she has no teeth and has lost weight. The patient denies chest pain, shortness of breath, headache and dizziness. Denies fever, chills, nausea, vomiting, diarrhea or constipation. Denies dysuria , frequency, urgency and hematuria. Allergies: Sulfa, penicillin Past surgical history: archie hip replacements, partial lung lobectomy Social History: No alcohol, tobacco or drug use reported - Physicial Exam PE: 11/21/17 21:15 GENERAL: Well developed, thin. Awake and alert. No acute distress. HEENT: Normocephalic, atraumatic. Hearing grossly normal. Moist mucous membranes. PERRLA, EOMI. No conjunctival pallor. Sclera are non-icteric. NECK: Supple. Full ROM. No JVD. CARDIOVASCULAR: Regular rate and rhythm. No murmurs, rubs, or gallops. PULMONARY: No evidence of respiratory distress. Lungs clear to auscultation bilaterally. No wheezing, rales or rhonchi. ABDOMINAL: Soft. Non-tender. Non-distended. No rebound or guarding. MUSCULOSKELETAL: Normal range of motion at all joints. No bony deformities or tenderness. EXTREMITIES: No cyanosis. No clubbing. No edema. No calf tenderness or swelling. SKIN: Warm and dry. Normal capillary refill. No rashes. No jaundice. NEUROLOGICAL: Alert, awake, appropriate. Cranial nerves 2-12 grossly intact. Normal speech. Gait is ataxic (pt normally uses walker and does not have one in ER). PSYCHIATRIC: Cooperative. Good eye contact. Appropriate mood and affect. <Vincent Gonzales - Last Filed: 11/21/17 21:14> - Resident Resident Name: Allen Franco - ED Attending Attestation I have performed the following: I have examined & evaluated the patient, The case was reviewed & discussed with the resident, I agree w/resident's findings & plan, Exceptions are as noted - Medical Decision Making 11/21/17 20:25 I, Dr. Ginger Bradford, DO, attest that this document has been prepared under my direction and personally reviewed by me in its entirety. I further attest, that it accurately reflects all work, treatment, procedures and medical decision -making performed by me. 11/21/17 21:21 a/p: 87yo female sent from her ECF for eval of generalized weakness -pt with dry mm, cracked tongue on exam -pt with a hx of dementia and is a poor historian -will send labs, ekg, cxr, ua, cultures -pt generally weak on exam and appears dehydrated, skin tenting -hx of ESBL ecoli on prior cultures -will monitor and reassess -no external signs of trauma -pt denies falling today 11/21/17 21:22 wbc 20 on labs straight cath ua pending will start abx pt will need contact precations for hx of esbl ecoli 11/21/17 21:23 resident discussed the case with saurav who accepts pt to service <Ginger Bradford - Last Filed: 11/21/17 21:23> Heart Score/ECG Review - ECG Intrepretation Comment:: 11/21/17 21:23 sinus at 91, RBBB, lafb, no acute st/t wave findings, abnl ekg <Ginger Bradford - Last Filed: 11/21/17 21:23>
[2017-11-21] MEDS ORDERED: AZTREONAM 1 GM in DEXTROSE 5%-WATER - 50 ML IVPB ONE (20:44)
[2017-11-21] MEDS ORDERED: MEROPENEM 1 GM in DEXTROSE 5%-WATER 100 ML IVPB ONE (20:46)
[2017-11-21 22:01] LABS: PLATELET ESTIMATE ADEQUATE
--- NOTE | 2017-11-21 22:20 | PN ---
Teaching Attending Note Name of Resident: Gilmar Ricardo ATTENDING PHYSICIAN STATEMENT I saw and evaluated the patient. I reviewed the resident's note and discussed the case with the resident. I agree with the resident's findings and plan as documented. SUBJECTIVE: Patient is an 87 year old woman, ID resident with a significant past medical history of R lung resection, ESBL producing E.Coli UTI, HTN, bilateral hip replacements, hypothyroidism, depression, and overactive bladder, who presents to the ED complaining of weakness that has been constant since yesterday. She states that she has no energy to move and does not feel like doing anything. She states that she cannot eat anything because she has no teeth and has lost weight. The patient denies chest pain, shortness of breath, headache and dizziness. Denies fever, chills, nausea, vomiting, diarrhea or constipation. Denies dysuria, frequency, urgency and hematuria. She is allergic to sulfa and penicillin. Has not produced any urine yet for analysis and got Meropenem in the ER. OBJECTIVE: Alert, frail and cachectic Vital Signs Period Temp Pulse Resp BP Sys/Richardson Pulse Ox Last 24 Hr 98.4 F 88 18 105/71 97 HEENT: No Jaundice, eye redness or discharge, PERRLA, EOMI. Normocephalic, atraumatic. External ears are normal and hearing is grossly intact. No nasal discharge. Neck: Supple, nontender. No palpable adenopathy or thyromegaly. No JVD Chest: Good effort. Clear to auscultation and percussion. Heart: Regular. No S3, rub or murmur Abdomen: Not distended, soft, nontender and no HSM. No rebound or guarding. Normoactive bowel sounds. Ext: Peripheral pulses intact. No leg edema. Skin: Warm and dry. No petechiae, rash or ecchymosis. Neuro: Alert. Oriented x3. CN 2-12 grossly intact. Sensation grossly intact in all four extremities and DTR are symmetric. Home Medications Medication Instructions Recorded Duloxetine HCl [Cymbalta] 60 mg PO DAILY 04/30/17 Mirabegron [Myrbetriq] 50 mg PO DAILY 04/30/17 Mirtazapine [Remeron -] 7.5 mg PO DAILY 04/30/17 Montelukast Sodium [Singulair] 10 mg PO DAILY 04/30/17 Amlodipine Besylate [Norvasc -] 5 mg PO DAILY #30 tablet 05/04/17 Budesonide/Formeterol Fumarate 1 inh IH BID #1 inhaler 05/04/17 [SYMBICORT 160/4.5mcg -] Levothyroxine Sodium [Synthroid] 137 mcg PO DAILY #7 tablet 05/04/17 Lisinopril 10 mg PO DAILY #30 tablet 05/04/17 Oxybutynin Chloride 5 mg PO BID #60 tablet 05/04/17 Polyvinyl Alcohol [Artificial 1 drop OU QID PRN drops 05/04/17 Tears] Polyethylene Glycol 3350 1,700 gm PO DAILY 06/15/17 [Laxaclear] Acetaminophen [Mapap] 650 mg PO PRN PRN 09/09/17 Chlorhexidine Gluconate 15 ml MM DAILY 09/09/17 Abnormal Lab Results 11/21/17 11/21/17 18:40 18:40 WBC 20.4 H Absolute Neuts (auto) 17.9 H Neutrophils % 87.4 H Neutrophils % (Manual) 89.0 H Lymphocytes % 2.5 L D Lymphocytes % (Manual) 5.0 L BUN 23 H AST 12 L Creatine Kinase 23 L Albumin 3.2 L ASSESSMENT AND PLAN: 1. UTI - Awaiting urine sample for analysis. Once UTI is confirmed will treat with Meropenem based on historical ESBL E.Coli. Continue IV NS. Check TFT, Mg and phosphate. 2. DVT prophylaxis - Lovenox 40 mg SQ q 24 hours. 3. Advance directives - Full code
[2017-11-21] MEDS ORDERED: SODIUM CHLORIDE 1,000 ML IV SCH (23:30)
--- NOTE | 2017-11-21 23:40 | HP ---
CHIEF COMPLAINT: Weakness PCP: HISTORY OF PRESENT ILLNESS: The patient is an 87 yo f w/ PMH HTN, Hypothyroidism, asthma, depression who comes into the ED from [facility] assisted living c/o generalized weakness for the past 2 days. The patient states that since the night prior to admission, she has been experiencing increased weakness to the point where she could no longer ambulate independently and required use of a wheelchair. The patient also complained of a decreased appetite over the same period of time. Patient denies chest pain, SOB, dysuria. The patient was recently admitted multiple times to [facility] for UTI. Previous cultures grew Klebsiella and ESBL E. Coli. ER course was notable for: (1) WBC 20.4, BUN 23 (2) CT head negative (3) BCX, UCX, UA pending Recent Travel: none PAST MEDICAL HISTORY: HTN Hypothyroidism Depression overactive bladder asthma PAST SURGICAL HISTORY: s/p right partial lung resection b/l total hip replacement Thyroidectomy Social History: Smoking: smoked 1.5 PPD for 35 years, quit 10 yrs ago Alcohol: social Drugs: denies Family History: DM in grandmother Allergies Sulfa (Sulfonamide Antibiotics) Allergy (Verified 11/21/17 17:06) Penicillins Adverse Reaction (Verified 11/21/17 17:06) HOME MEDICATIONS: Home Medications Medication Instructions Recorded Duloxetine HCl [Cymbalta] 60 mg PO DAILY 04/30/17 Mirabegron [Myrbetriq] 50 mg PO DAILY 04/30/17 Mirtazapine [Remeron -] 7.5 mg PO DAILY 04/30/17 Montelukast Sodium [Singulair] 10 mg PO DAILY 04/30/17 Amlodipine Besylate [Norvasc -] 5 mg PO DAILY #30 tablet 05/04/17 Budesonide/Formeterol Fumarate 1 inh IH BID #1 inhaler 05/04/17 [SYMBICORT 160/4.5mcg -] Levothyroxine Sodium [Synthroid] 137 mcg PO DAILY #7 tablet 05/04/17 Lisinopril 10 mg PO DAILY #30 tablet 05/04/17 Oxybutynin Chloride 5 mg PO BID #60 tablet 05/04/17 Polyvinyl Alcohol [Artificial 1 drop OU QID PRN drops 05/04/17 Tears] Polyethylene Glycol 3350 1,700 gm PO DAILY 03/23/18 [Laxaclear] Acetaminophen [Mapap] 650 mg PO PRN PRN 09/09/17 Chlorhexidine Gluconate 15 ml MM DAILY 09/09/17 REVIEW OF SYSTEMS CONSTITUTIONAL: Absent: fever, chills, diaphoresis HEENT: Absent: rhinorrhea, nasal congestion, throat pain, throat swelling, difficulty swallowing, mouth swelling, ear pain, eye pain, visual changes CARDIOVASCULAR: Absent: chest pain, syncope, palpitations, irregular heart rate, lightheadedness , peripheral edema RESPIRATORY: Absent: cough, shortness of breath, dyspnea with exertion, orthopnea, wheezing, stridor, hemoptysis GASTROINTESTINAL: Absent: abdominal pain, abdominal distension, nausea, vomiting, diarrhea, constipation, melena, hematochezia GENITOURINARY: Absent: dysuria, frequency, urgency, hesitancy, hematuria, flank pain, genital pain MUSCULOSKELETAL: Absent: myalgia, arthralgia, joint swelling, back pain, neck pain SKIN: Absent: rash, itching, pallor HEMATOLOGIC/IMMUNOLOGIC: Absent: easy bleeding, easy bruising, lymphadenopathy, frequent infections ENDOCRINE: Absent: unexplained weight gain, unexplained weight loss, heat intolerance, cold intolerance NEUROLOGIC: Absent: headache, focal weakness or paresthesias, dizziness, unsteady gait, seizure, mental status changes, bladder or bowel incontinence PSYCHIATRIC: Absent: anxiety, depression, suicidal or homicidal ideation, hallucinations. PHYSICAL EXAMINATION Vital Signs - 24 hr 11/21/17 17:06 Temperature 98.4 F Pulse Rate 88 Respiratory 18 Rate Blood Pressure 105/71 O2 Sat by Pulse 97 Oximetry (%) GENERAL: Awake, alert, and fully oriented, in no acute distress. HEAD: Normal with no signs of trauma. EYES: Pupils equal, round and reactive to light, extraocular movements intact, sclera anicteric, conjunctiva clear. No lid lag. EARS, NOSE, THROAT: Ears normal, nares patent, oropharynx clear without exudates. Moist mucous membranes. NECK: Normal range of motion, supple without lymphadenopathy, JVD, or masses. LUNGS: Breath sounds equal, clear to auscultation bilaterally. No wheezes, and no crackles. No accessory muscle use. HEART: Regular rate and rhythm, normal S1 and S2 without murmur, rub or gallop. ABDOMEN: Soft, nontender, not distended, normoactive bowel sounds, no guarding, no rebound, no masses. Mild suprapubic tenderness LOWER EXTREMITIES: 2+ pulses, warm, well-perfused. No calf tenderness. No peripheral edema. NEUROLOGICAL: Cranial nerves II-XII intact. Normal speech. Normal gait. PSYCHIATRIC: Cooperative. Good eye contact. Appropriate mood and affect. SKIN: Warm, dry, normal turgor, no rashes or lesions noted, normal capillary refill. Patient declined to be turned to check for decubiti. Laboratory Results - last 24 hr 11/21/17 11/21/17 11/21/17 18:40 18:40 21:49 WBC 20.4 H RBC 4.61 Hgb 13.1 Hct 40.2 MCV 87.0 MCH 28.5 MCHC 32.7 RDW 14.8 Plt Count 362 MPV 9.4 Absolute Neuts (auto) 17.9 H Total Counted 100 Neutrophils % 87.4 H Neutrophils % (Manual) 89.0 H Band Neutrophils % 1.0 Lymphocytes % 2.5 L D Lymphocytes % (Manual) 5.0 L Monocytes % 8.7 Monocytes % (Manual) 4 Eosinophils % 0.1 D Basophils % 1.3 Basophils % (Manual) 1.0 Nucleated RBC % 0 Hypochromia Occasional Platelet Estimate Adequate Sodium 137 Potassium 4.4 Chloride 102 Carbon Dioxide 25 Anion Gap 10 BUN 23 H Creatinine 0.8 Creat Clearance w eGFR > 60 Random Glucose 103 Lactic Acid 1.1 Calcium 9.0 Magnesium 2.2 Total Bilirubin 0.7 AST 12 L ALT 14 Alkaline Phosphatase 87 Creatine Kinase 23 L Troponin I < 0.02 Total Protein 6.8 Albumin 3.2 L ASSESSMENT/PLAN: The patient is an 87 yo f w/ PMH HTN, Hypothyroid, asthma and depression who comes into the ED c/o generalized weakness. #Generalized weakness, lethargy and leukocytosis javed 2/2 UTI vs hypothroidism -TSH, T4 in AM -f/u UA, UCX -s/o meropenem and aztreonam in ED -c/w meropenem 1g q8h -ID consult -NS @ 42 x 1 bag #FEN -no fluids indicated -lytes WNL, monitor -soft diet #prophy -lovenox 40mg sq #dispo -admit med surg -medications verified with NH paperwork Visit type - Emergency Visit Emergency Visit: Yes ED Registration Date: 11/21/17 Care time: The patient presented to the Emergency Department on the above date and was hospitalized for further evaluation of their emergent condition. - New Patient This patient is new to me today: Yes Date on this admission: 11/22/17 - Critical Care Critical Care patient: No Hospitalist Screening - Colonoscopy Questionnaire Colonoscopy Questionnaire: Colonoscopy Questionnaire - Patient: 50 - 75 years old and never had a screening colonoscopy: Unknown History of colon or rectal polyps, or CA: Unknown History of IBD, Crohn's disease or UC: Unknown History of abdominal radiation therapy as a child: Unknown - Relative: 1 with colon or rectal CA, or polyps at age 60 or younger: Unknown Colon or rectal CA diagnosed at age 45 or younger: Unknown Multiple relatives with colon or rectal CA: Unknown - Outcome: Screening Result: Negative Screen
[2017-11-21] MEDS ORDERED: ARTIFICIAL TEARS (POLYVINYL ALCOHOL) OPTH DROPS OU PRN (23:51)
[2017-11-22] MEDS ORDERED: MEROPENEM 1 GM in DEXTROSE 5%-WATER 100 ML IVPB SCH (04:00)
[2017-11-22 06:39] LABS: BASO % 0.6 % (0-2.0); HEMATOCRIT 34.7 % (32.4-45.2); HEMOGLOBIN 11.7 GM/dL (10.7-15.3); LYMPH % 16.7 % (8-40); MCH 29.3 pg (25.7-33.7); MCHC 33.8 g/dl (32.0-36.0); MEAN CELL VOLUME 86.7 fl (80-96); MEAN PLT VOLUME 9.2 fl (7.5-11.1); MONO % 12.1 % (3.8-10.2); NEUT % 69.6 % (42.8-82.8); PLATELET COUNT 271 K/MM3 (134-434); RBC 4.01 M/mm3 (3.60-5.2); RDW 14.7 % (11.6-15.6); WHITE BLOOD COUNT 10.3 K/mm3 (4.0-10.0)
[2017-11-22 06:44] LABS: URINE APPEARANCE CLOUDY; URINE BILIRUBIN NEGATIVE (<2.0 mg/dL); URINE COLOR YELLOW; URINE GLUCOSE (UA) NEGATIVE (NEGATIVE); URINE KETONE NEGATIVE (NEGATIVE); URINE NITRITE NEGATIVE (NEGATIVE); URINE PROTEIN NEGATIVE (NEGATIVE); URINE UROBILINOGEN NEGATIVE mg/dL (0.2-1.0)
[2017-11-22] MEDS: LEVOTHYROXINE 112 MCG, LEVOTHYROXINE 25 MCG PO SCH (06:50)
[2017-11-22 07:04] LABS: URINE LEUK ESTERASE 3+ (NEGATIVE)
[2017-11-22 07:04] LABS: ANION GAP 7 MMOL/L (8-16); BLOOD UREA NITROGEN 21 mg/dL (7-18); CALCIUM 7.9 mg/dL (8.5-10.1); CHLORIDE 106 mmol/L (98-107); CO2 25 mmol/L (21-32); CREATININE 0.7 mg/dL (0.55-1.02); GLUCOSE,RANDOM 93 mg/dL (74-106); MAGNESIUM 1.7 mg/dL (1.8-2.4); PHOSPHOROUS 3.1 mg/dL (2.5-4.9); SODIUM 138 mmol/L (136-145)
[2017-11-22 07:05] LABS: URINE BACTERIA RARE /hpf (NONE SEEN); URINE MUCUS RARE
[2017-11-22 07:09] LABS: INR 1.05 (0.83-1.09); PROTHROMBIN TIME (PATIENT) 11.9 SEC (9.7-13.0)
[2017-11-22] MEDS: LACTULOSE 20 GM/30 ML UDC (FOR ORAL USE ONLY) PO SCH (09:18)
[2017-11-22] MEDS: DULoxetine HCL 30 MG CAPSULE.DR (FP) PO SCH (09:19)
[2017-11-22] MEDS: OXYBUTYNIN CHLORIDE 5 MG TABLET PO SCH ×2 (09:19→21:38)
[2017-11-22] MEDS: amLODIPine BESYLATE 5 MG TABLET (FP) PO SCH (09:20)
[2017-11-22] MEDS: LISINOPRIL 10 MG TABLET (FP) PO SCH (09:20)
[2017-11-22] MEDS: ENOXAPARIN NA (PORCINE) 40 MG/0.4 ML DISP.SYRIN SQ SCH (09:20)
[2017-11-22] MEDS ORDERED: PATIENT'S OWN MEDICATION (NON-FORMULARY) (Levothyroxine Sodium [Synthroid] 137 MCG) PO SCH (10:00)
[2017-11-22] MEDS ORDERED: PT OWN MED DRAWER 7, Y5N ONE (10:05)
[2017-11-22] MEDS ORDERED: MAGNESIUM OXIDE 400 MG TABLET (FP) PO ONE (10:30)
[2017-11-22] MEDS: BUDESONIDE/FORMETEROL FUMARATE 160/4.5 mcg INHALER IH SCH ×2 (10:35→21:56)
[2017-11-22] MEDS: POLYETHYLENE GLYCOL 3350 255 GM BTL PO SCH (10:35)
--- NOTE | 2017-11-22 11:55 | EKG ---
Test Reason : Blood Pressure : / mmHG Vent. Rate : 091 BPM Atrial Rate : 091 BPM P-R Int : 144 ms QRS Dur : 118 ms QT Int : 376 ms P-R-T Axes : 052 -45 015 degrees QTc Int : 462 ms NORMAL SINUS RHYTHM LOW VOLTAGE QRS RIGHT BUNDLE BRANCH BLOCK LEFT ANTERIOR FASCICULAR BLOCK BIFASCICULAR BLOCK ABNORMAL ECG WHEN COMPARED WITH ECG OF 09-SEP-2017 16:22, NO SIGNIFICANT CHANGE WAS FOUND Confirmed by MARIANO GREGORY MD ([id number]) on 11/22/2017 11:54:58 AM Referred By: Confirmed By:MARIANO GREGORY MD
--- NOTE | 2017-11-22 15:41 | PN ---
Physical Exam: SUBJECTIVE: Patient seen and examined at bedside. States she feels very tired. Denies dysuria, urgency, frequency. OBJECTIVE: Vital Signs Period Temp Pulse Resp BP Sys/Richardson Pulse Ox Last 24 Hr 98 F-98.6 F 74-88 17-20 105-141/47-77 95-97 GENERAL: The patient is awake, alert, and fully oriented, in no acute distress. Conversant. LUNGS: Breath sounds CTA HEART: Regular rate and rhythm, S1, S2 ABDOMEN: Soft, nontender, nondistended EXTREMITIES: 2+ pulses, warm, well-perfused, no edema. NEUROLOGICAL: Cranial nerves II through XII grossly intact. Normal speech. Laboratory Results - last 24 hr 11/21/17 11/21/17 11/21/17 06:25 18:40 18:40 WBC 20.4 H RBC 4.61 Hgb 13.1 Hct 40.2 MCV 87.0 MCH 28.5 MCHC 32.7 RDW 14.8 Plt Count 362 MPV 9.4 Absolute Neuts (auto) 17.9 H Total Counted 100 Neutrophils % 87.4 H Neutrophils % (Manual) 89.0 H Band Neutrophils % 1.0 Lymphocytes % 2.5 L D Lymphocytes % (Manual) 5.0 L Monocytes % 8.7 Monocytes % (Manual) 4 Eosinophils % 0.1 D Basophils % 1.3 Basophils % (Manual) 1.0 Nucleated RBC % 0 Hypochromia Occasional Platelet Estimate Adequate PT with INR INR Sodium 137 Potassium 4.4 Chloride 102 Carbon Dioxide 25 Anion Gap 10 BUN 23 H Creatinine 0.8 Creat Clearance w eGFR > 60 Random Glucose 103 Lactic Acid Calcium 9.0 Phosphorus Magnesium 2.2 Total Bilirubin 0.7 AST 12 L ALT 14 Alkaline Phosphatase 87 Creatine Kinase 23 L Troponin I < 0.02 Total Protein 6.8 Albumin 3.2 L Urine Color Yellow Urine Appearance Cloudy Urine pH 5.0 Ur Specific Jackson 1.011 Urine Protein Negative Urine Glucose (UA) Negative Urine Ketones Negative Urine Blood Negative Urine Nitrite Negative Urine Bilirubin Negative Urine Urobilinogen Negative Ur Leukocyte Esterase 3+ H Urine WBC (Auto) 49 Urine RBC (Auto) 3 Urine Bacteria Rare Urine Mucus Rare 11/21/17 11/22/17 11/22/17 21:49 06:25 06:25 WBC 10.3 H RBC 4.01 Hgb 11.7 Hct 34.7 MCV 86.7 MCH 29.3 MCHC 33.8 RDW 14.7 Plt Count 271 D MPV 9.2 Absolute Neuts (auto) 7.2 Total Counted Neutrophils % 69.6 D Neutrophils % (Manual) Band Neutrophils % Lymphocytes % 16.7 D Lymphocytes % (Manual) Monocytes % 12.1 H Monocytes % (Manual) Eosinophils % 1.0 D Basophils % 0.6 Basophils % (Manual) Nucleated RBC % 0 Hypochromia Platelet Estimate PT with INR 11.90 INR 1.05 Sodium Potassium Chloride Carbon Dioxide Anion Gap BUN Creatinine Creat Clearance w eGFR Random Glucose Lactic Acid 1.1 Calcium Phosphorus Magnesium Total Bilirubin AST ALT Alkaline Phosphatase Creatine Kinase Troponin I Total Protein Albumin Urine Color Urine Appearance Urine pH Ur Specific Jackson Urine Protein Urine Glucose (UA) Urine Ketones Urine Blood Urine Nitrite Urine Bilirubin Urine Urobilinogen Ur Leukocyte Esterase Urine WBC (Auto) Urine RBC (Auto) Urine Bacteria Urine Mucus 11/22/17 06:25 WBC RBC Hgb Hct MCV MCH MCHC RDW Plt Count MPV Absolute Neuts (auto) Total Counted Neutrophils % Neutrophils % (Manual) Band Neutrophils % Lymphocytes % Lymphocytes % (Manual) Monocytes % Monocytes % (Manual) Eosinophils % Basophils % Basophils % (Manual) Nucleated RBC % Hypochromia Platelet Estimate PT with INR INR Sodium 138 Potassium 4.0 Chloride 106 Carbon Dioxide 25 Anion Gap 7 L BUN 21 H Creatinine 0.7 Creat Clearance w eGFR > 60 Random Glucose 93 Lactic Acid Calcium 7.9 L Phosphorus 3.1 Magnesium 1.7 L Total Bilirubin AST ALT Alkaline Phosphatase Creatine Kinase Troponin I Total Protein Albumin Urine Color Urine Appearance Urine pH Ur Specific Jackson Urine Protein Urine Glucose (UA) Urine Ketones Urine Blood Urine Nitrite Urine Bilirubin Urine Urobilinogen Ur Leukocyte Esterase Urine WBC (Auto) Urine RBC (Auto) Urine Bacteria Urine Mucus Active Medications Generic Name Dose Route Start Last Admin Trade Name Freq PRN Reason Stop Dose Admin Amlodipine Besylate 5 mg 11/22/17 10:00 11/22/17 09:20 Norvasc - PO 5 mg DAILY YNES Administration Artificial Tears 1 drop 11/21/17 23:51 Artificial Tears OU TID PRN DRY EYES Budesonide/Formoterol Fumarate 1 puff 11/22/17 10:00 11/22/17 10:35 Symbicort 160/4.5mcg - IH Not Given BID YNES Duloxetine HCl 60 mg 11/22/17 10:00 11/22/17 09:19 Cymbalta - PO 60 mg DAILY YNES Administration Enoxaparin Sodium 40 mg 11/22/17 10:00 11/22/17 09:20 Lovenox - SQ 40 mg DAILY YNES Administration Sodium Chloride 1,000 mls @ 42 mls/hr 11/21/17 23:30 11/22/17 00:30 Normal Saline - IV 11/22/17 23:19 42 mls/hr ASDIR YNES Administration Meropenem 1 gm/ Dextrose 100 mls @ 200 mls/hr 11/22/17 04:00 IVPB Q8H-IV YNES Lactulose 10 gm 11/22/17 10:00 11/22/17 09:18 Cephulac (Oral Use) PO 10 gm DAILY YNES Administration Levothyroxine Sodium 112 mcg/ 137 mcg 11/22/17 07:00 11/22/17 06:50 Levothyroxine Sodium 25 mcg PO 137 mcg DAILY@0700 YNES Administration Lisinopril 10 mg 11/22/17 10:00 11/22/17 09:20 Prinivil PO 10 mg DAILY YNES Administration Mirtazapine 7.5 mg 11/22/17 22:00 Remeron - PO HS YNES Montelukast Sodium 10 mg 11/22/17 22:00 Singulair - PO HS YNES Non-Formulary Medication 50 mg 11/22/17 10:00 Mirabegron [Myrbetriq] PO DAILY YNES Oxybutynin Chloride 5 mg 11/22/17 10:00 11/22/17 09:19 Ditropan - PO 5 mg BID YNES Administration Polyethylene Glycol 17 gm 11/22/17 10:00 11/22/17 10:35 Miralax (For Bowel Prep) - PO Not Given DAILY YNES ASSESSMENT/PLAN 87 year-old female with a PMH significant for HTN, asthma/COPD s/p right lung resection, hypothyroidism s/p thyroidectomy, recurrent UTIs/overactive bladder, bilateral hip replacements, and depression. Admitted for UTI. UTI --afebrile, +leukocytosis, +pyuria --three previous UTIs this year: Klebsiella (04/2017), E.coli ESBL (05/2017) , and Klebsiella (08/2017) --culture pending --continue meropenem Overactive bladder --continue oxybutinin, mirabegron Hypertension --BP stable --continue lisinopril, amlodipine Asthma/COPD --continue Symbicort, Singulair Hypothyroidism --continue levothyroxine Depression --continue duloxetine, mirtazapine Hypomagnesemia --repleted FEN Fluids: PO intake adequate Electrolytes: replete as indicated Nutrition: soft, low sodium DVT prophylaxis: lovenox, oob, ambulation Physical therapy Dispo: continues to require inpatient care. Full code. Visit type - Emergency Visit Emergency Visit: Yes ED Registration Date: 11/21/17 Care time: The patient presented to the Emergency Department on the above date and was hospitalized for further evaluation of their emergent condition. - New Patient This patient is new to me today: Yes Date on this admission: 11/22/17 - Critical Care Critical Care patient: No
--- NOTE | 2017-11-22 16:31 | PN ---
Progress Note (short form) - Note Progress Note: ID Consult dictated Profound weakness, marked leukocytosis R/O Sepsis Hx ESBL, urine PCN, Sulfa allergies Pending sepsis work up, empiric ertapenem
[2017-11-22] MEDS ORDERED: ERTAPENEM SODIUM 1 GM/50 ML PRE-DOCKED IVPB SCH (16:45)
[2017-11-22] MEDS: ERTAPENEM SODIUM 1 GM in SODIUM CHLORIDE 50 ML IVPB SCH (16:58)
--- NOTE | 2017-11-22 17:09 | CONS ---
DATE OF CONSULTATION: 11/22/2017 HISTORY OF PRESENT ILLNESS: The patient is an 87-year-old female who is evaluated for leukocytosis. The patient was admitted from her assisted living facility on November 21, 2017 with complaints of profound weakness for the past several days. She had been very weak and had been unable to get up from bed or to ambulate. In addition, she had very little oral intake. She was evaluated in the emergency room where her white blood cell count was noted to be 20,000. Cultures were obtained. She was empirically treated with meropenem and Azactam. The patient has a history of ESBL in her urine which in the past has been considered colonization. She denies dysuria or hematuria. No complaints of urinary frequency or urgency. She denies any suprapubic or flank pain. She has been afebrile. PAST MEDICAL HISTORY: Positive for mild dementia, hypertension, hypothyroidism, history of lung tumor status post resection. PAST SURGICAL HISTORY: Status post bilateral total hip replacements. ALLERGIES: PENICILLIN and SULFA. She reports a rash with these medications. MEDICATIONS: Cymbalta, Remeron, Singulair, Norvasc, Symbicort, Synthroid and lisinopril. SOCIAL HISTORY: She is a former smoker. She resides in an assisted living facility. REVIEW OF SYSTEMS: Neurologic: Positive for mild dementia. Cardiac: Negative for chest pain or palpitations. Respiratory: Negative for cough or sputum production. Gastrointestinal: Negative for vomiting or diarrhea. Genitourinary: As per HPI. LAB DATA: White count on admission 20,000. She had 87 neutrophils, 1 band, 2 lymphocytes, 8 monocytes. Hematocrit 34.7, platelet count 271, creatinine 0.7. Urinalysis showed 49 white cells. Blood and urine cultures are pending. PHYSICAL EXAMINATION: General: She is awake and alert. She does not appear acutely toxic. The patient is cachectic and frail appearing. Vital Signs: Temperature 98.5, pulse 76 and regular, blood pressure 122/57, respiratory rate 18 per minute. HEENT: Sclerae anicteric. Heart: Heart sounds S1, S2. Lungs: Clear bilaterally. Abdomen: Soft. There is suprapubic tenderness to palpation. Extremities: Negative for edema. IMPRESSION: 1. Profound weakness and marked leukocytosis; rule out sepsis, possibly secondary to genitourinary source. 2. History of extended spectrum beta-lactamase in the urine. 3. PENICILLIN AND SULFA ALLERGIES. PLAN: In light of her symptoms and her suprapubic tenderness on exam, we will treat her for a possible recurrent ESBL urinary tract infection with ertapenem 1 gram IV piggyback every 24 hours. Await blood and urine culture results. Contact precautions. Thanks for the kind referral. HANANE AMANDA M.D. [id number]
[2017-11-22] MEDS ORDERED: MONTELUKAST NA 10 MG TABLET PO SCH (22:00)
[2017-11-22] MEDS ORDERED: MIRTAZAPINE 15 MG TABLET (FP) PO SCH (22:00)
[2017-11-23] MEDS ORDERED: LEVOTHYROXINE NA 25 MCG TABLET (FP) ONE (05:56)
[2017-11-23] MEDS ORDERED: LEVOTHYROXINE NA 112 MCG TABLET (FP) ONE (05:57)
[2017-11-23] MEDS: LEVOTHYROXINE 112 MCG, LEVOTHYROXINE 25 MCG PO SCH (06:23)
--- NOTE | 2017-11-23 08:00 | PN ---
Physical Exam: SUBJECTIVE: Patient seen and examined OBJECTIVE: Vital Signs Period Temp Pulse Resp BP Sys/Richardson Pulse Ox Last 24 Hr 97.9 F-98.6 F 74-96 18-20 96-143/47-77 95-97 GENERAL: The patient is awake, alert, and fully oriented, in no acute distress. Conversant. LUNGS: Breath sounds CTA HEART: Regular rate and rhythm, S1, S2 ABDOMEN: Soft, nontender, nondistended EXTREMITIES: 2+ pulses, warm, well-perfused, no edema. NEUROLOGICAL: Cranial nerves II through XII grossly intact. Normal speech. Laboratory Results - last 24 hr 11/22/17 06:25 TSH 0.05 L Active Medications Generic Name Dose Route Start Last Admin Trade Name Freq PRN Reason Stop Dose Admin Amlodipine Besylate 5 mg 11/22/17 10:00 11/22/17 09:20 Norvasc - PO 5 mg DAILY YNES Administration Artificial Tears 1 drop 11/21/17 23:51 Artificial Tears OU TID PRN DRY EYES Budesonide/Formoterol Fumarate 1 puff 11/22/17 10:00 11/22/17 21:56 Symbicort 160/4.5mcg - IH Not Given BID YNES Duloxetine HCl 60 mg 11/22/17 10:00 11/22/17 09:19 Cymbalta - PO 60 mg DAILY YNES Administration Enoxaparin Sodium 40 mg 11/22/17 10:00 11/22/17 09:20 Lovenox - SQ 40 mg DAILY YNES Administration Ertapenem 1 gm/ Sodium 50 mls @ 100 mls/hr 11/22/17 16:45 11/22/17 16:58 Chloride IVPB 100 mls/hr DAILY YNES Administration Lactulose 10 gm 11/22/17 10:00 11/22/17 09:18 Cephulac (Oral Use) PO 10 gm DAILY YNES Administration Levothyroxine Sodium 112 mcg/ 137 mcg 11/22/17 07:00 11/23/17 06:23 Levothyroxine Sodium 25 mcg PO 137 mcg DAILY@0700 YNES Administration Lisinopril 10 mg 11/22/17 10:00 11/22/17 09:20 Prinivil PO 10 mg DAILY YNES Administration Mirtazapine 7.5 mg 11/22/17 22:00 11/22/17 21:38 Remeron - PO 7.5 mg HS YNES Administration Montelukast Sodium 10 mg 11/22/17 22:00 11/22/17 21:38 Singulair - PO 10 mg HS YNES Administration Non-Formulary Medication 50 mg 11/22/17 10:00 Mirabegron [Myrbetriq] PO DAILY YNES Oxybutynin Chloride 5 mg 11/22/17 10:00 11/22/17 21:38 Ditropan - PO 5 mg BID YNES Administration Polyethylene Glycol 17 gm 11/22/17 10:00 11/22/17 10:35 Miralax (For Bowel Prep) - PO Not Given DAILY YNES Polymyxin/Trimethoprim Sulfate 1 drop 11/23/17 10:00 Polytrim Opthalmic Solution - OU Q4HWA [facility] ASSESSMENT/PLAN: 87 year-old female with a PMH significant for HTN, asthma/COPD s/p right lung resection, hypothyroidism s/p thyroidectomy, recurrent UTIs/overactive bladder, bilateral hip replacements, and depression. Admitted for UTI. UTI --afebrile, leukocytosis resolved, urine culture negative --three previous UTIs this year: Klebsiella (04/2017), E.coli ESBL (05/2017) , and Klebsiella (08/2017) --per ID, continue meropenem an additional 24 hours then observe off antibiotics Overactive bladder --continue oxybutinin, mirabegron Hypertension --BP stable --continue lisinopril, amlodipine Asthma/COPD --continue Symbicort, Singulair Hypothyroidism --continue levothyroxine Depression --continue duloxetine, mirtazapine Hypomagnesemia --repleted again today FEN Fluids: PO intake adequate Electrolytes: replete as indicated Nutrition: soft, low sodium DVT prophylaxis: lovenox, oob, ambulation Physical therapy Dispo: continues to require inpatient care. Full code. Visit type - Emergency Visit Emergency Visit: Yes ED Registration Date: 11/21/17 Care time: The patient presented to the Emergency Department on the above date and was hospitalized for further evaluation of their emergent condition. - New Patient This patient is new to me today: No - Critical Care Critical Care patient: No
[2017-11-23 08:40] LABS: BASO % 0.8 % (0-2.0); EOS % 3.5 % (0-4.5); HEMATOCRIT 36.1 % (32.4-45.2); LYMPH % 15.7 % (8-40); MCH 28.6 pg (25.7-33.7); MCHC 33.2 g/dl (32.0-36.0); MEAN CELL VOLUME 86.3 fl (80-96); MEAN PLT VOLUME 8.8 fl (7.5-11.1); PLATELET COUNT 249 K/MM3 (134-434); RBC 4.19 M/mm3 (3.60-5.2); RDW 14.6 % (11.6-15.6); WHITE BLOOD COUNT 7.1 K/mm3 (4.0-10.0)
[2017-11-23 08:55] LABS: ALBUMIN 2.3 g/dl (3.4-5.0); ALK PHOS 60 U/L (45-117); ANION GAP 8 MMOL/L (8-16); BILIRUBIN,TOTAL 0.5 mg/dL (0.2-1.0); BLOOD UREA NITROGEN 15 mg/dL (7-18); CALCIUM 7.8 mg/dL (8.5-10.1); CHLORIDE 104 mmol/L (98-107); CO2 27 mmol/L (21-32); CREATININE 0.5 mg/dL (0.55-1.02); GLUCOSE,RANDOM 75 mg/dL (74-106); MAGNESIUM 1.7 mg/dL (1.8-2.4); POTASSIUM 3.8 mmol/L (3.5-5.1); SGOT/AST 10 U/L (15-37); SGPT/ALT 10 U/L (12-78); SODIUM 139 mmol/L (136-145); TOT PROT 5.4 g/dl (6.4-8.2)
[2017-11-23] MEDS: DULoxetine HCL 30 MG CAPSULE.DR (FP) PO SCH (09:52)
[2017-11-23] MEDS ORDERED: PT OWN MED DRAWER 7, Y5N ONE ×2 (09:54→21:01)
[2017-11-23] MEDS: OXYBUTYNIN CHLORIDE 5 MG TABLET PO SCH ×2 (09:55→21:29)
[2017-11-23] MEDS: LISINOPRIL 10 MG TABLET (FP) PO SCH (09:56)
[2017-11-23] MEDS: ENOXAPARIN NA (PORCINE) 40 MG/0.4 ML DISP.SYRIN SQ SCH (09:56)
[2017-11-23] MEDS: LACTULOSE 20 GM/30 ML UDC (FOR ORAL USE ONLY) PO SCH (09:56)
[2017-11-23] MEDS: amLODIPine BESYLATE 5 MG TABLET (FP) PO SCH (09:56)
[2017-11-23] MEDS: POLYETHYLENE GLYCOL 3350 255 GM BTL PO SCH (11:06)
[2017-11-23] MEDS ORDERED: MAGNESIUM 2GM/50ML STERILE WATER IVPB IVPB ONE (12:00)
--- NOTE | 2017-11-23 12:55 | PN ---
Progress Note, Physician History of Present Illness: OOB in chair No complaints denies dysuria No c/o chest pain/ dyspnea/ cough No fever/ chills Afebrile WBC improved- WNL Cultures negative - Current Medication List Current Medications: Active Medications Amlodipine Besylate (Norvasc -) 5 mg PO DAILY [facility] Last Admin: 11/23/17 09:56 Dose: 5 mg Artificial Tears (Artificial Tears) 1 drop OU TID PRN PRN Reason: DRY EYES Budesonide/Formoterol Fumarate (Symbicort 160/4.5mcg -) 1 puff IH BID [facility] Last Admin: 11/22/17 21:56 Dose: Not Given Duloxetine HCl (Cymbalta -) 60 mg PO DAILY [facility] Last Admin: 11/23/17 09:52 Dose: 60 mg Enoxaparin Sodium (Lovenox -) 40 mg SQ DAILY [facility] Last Admin: 11/23/17 09:56 Dose: 40 mg Ertapenem 1 gm/ Sodium (Chloride) 50 mls @ 100 mls/hr IVPB DAILY [facility] Last Admin: 11/22/17 16:58 Dose: 100 mls/hr Lactulose (Cephulac (Oral Use)) 10 gm PO DAILY [facility] Last Admin: 11/23/17 09:56 Dose: 10 gm Levothyroxine Sodium 112 mcg/ (Levothyroxine Sodium 25 mcg) 137 mcg PO DAILY@ 0700 [facility] Last Admin: 11/23/17 06:23 Dose: 137 mcg Lisinopril (Prinivil) 10 mg PO DAILY [facility] Last Admin: 11/23/17 09:56 Dose: 10 mg Mirtazapine (Remeron -) 7.5 mg PO [facility] Last Admin: 11/22/17 21:38 Dose: 7.5 mg Montelukast Sodium (Singulair -) 10 mg PO [facility] Last Admin: 11/22/17 21:38 Dose: 10 mg Non-Formulary Medication (Mirabegron [Myrbetriq]) 50 mg PO DAILY [facility] Oxybutynin Chloride (Ditropan -) 5 mg PO BID [facility] Last Admin: 11/23/17 09:55 Dose: 5 mg Polyethylene Glycol (Miralax (For Bowel Prep) -) 17 gm PO DAILY [facility] Last Admin: 11/23/17 11:06 Dose: Not Given Polymyxin/Trimethoprim Sulfate (Polytrim Opthalmic Solution -) 1 drop OU Q4HWA YNES - Objective Vital Signs: Vital Signs Temperature 97.6 F 11/23/17 09:51 Pulse Rate 89 11/23/17 09:51 Respiratory Rate 16 11/23/17 09:51 Blood Pressure 136/76 11/23/17 09:51 O2 Sat by Pulse Oximetry (%) 97 11/23/17 09:00 Constitutional: Yes: No Distress, Cachectic Cardiovascular: Yes: Regular Rate and Rhythm, S1, S2 Respiratory: Yes: CTA Bilaterally Gastrointestinal: Yes: Normal Bowel Sounds, Soft. No: Tenderness Edema: No Labs: CBC, BMP 11/23/17 08:00 11/23/17 08:00 INR, PTT INR 1.05 (0.83-1.09) 11/22/17 06:25 Assessment/Plan Leukocytosis- improved] Generalized weakness - improved Hx ESBL urine PCN/ sulfa allergies Continue ertapenem additional 24hr, then observe off
[2017-11-23] MEDS: BUDESONIDE/FORMETEROL FUMARATE 160/4.5 mcg INHALER IH SCH ×2 (17:09→21:29)
[2017-11-23] MEDS: ERTAPENEM SODIUM 1 GM in SODIUM CHLORIDE 50 ML IVPB SCH (17:15)
[2017-11-23] MEDS: POLYMYXIN B SULFATE/TMP 10 ML OPHTHALMIC SOLUTION OU SCH ×3 (17:16→21:28)
[2017-11-23] MEDS ORDERED: ARTIFICIAL TEARS (POLYVINYL ALCOHOL) OPTH DROPS OU PRN (17:38)
[2017-11-23] MEDS: PATIENT'S OWN MEDICATION (NON-FORMULARY) (Mirabegron [Myrbetriq] 50 MG) PO SCH ×2 (17:41→17:42)
[2017-11-23] MEDS ORDERED: MAGNESIUM SULF 50% (8.12 MEQ/2 ML-1 GM VIAL) IVPB ONE (17:45)
[2017-11-23] MEDS: MEROPENEM 1 GM in DEXTROSE 5%-WATER 100 ML IVPB SCH (18:26)
[2017-11-23] MEDS: MIRTAZAPINE 15 MG TABLET (FP) PO SCH (21:27)
[2017-11-23] MEDS: MONTELUKAST NA 10 MG TABLET PO SCH (21:29)
[2017-11-23 23:30] VITALS: BMI 18.0
[2017-11-24] MEDS ORDERED: LEVOTHYROXINE NA 25 MCG TABLET (FP) ONE (06:18)
[2017-11-24] MEDS ORDERED: LEVOTHYROXINE NA 112 MCG TABLET (FP) ONE (06:20)
[2017-11-24] MEDS: POLYMYXIN B SULFATE/TMP 10 ML OPHTHALMIC SOLUTION OU SCH ×5 (06:36→21:30)
[2017-11-24] MEDS: LEVOTHYROXINE 112 MCG, LEVOTHYROXINE 25 MCG PO SCH (06:36)
[2017-11-24 08:08] LABS: BASO % 0.9 % (0-2.0); EOS % 3.9 % (0-4.5); HEMATOCRIT 35.3 % (32.4-45.2); HEMOGLOBIN 11.7 GM/dL (10.7-15.3); LYMPH % 17.3 % (8-40); MCH 28.8 pg (25.7-33.7); MCHC 33.2 g/dl (32.0-36.0); MEAN CELL VOLUME 86.6 fl (80-96); MEAN PLT VOLUME 9.2 fl (7.5-11.1); MONO % 10.6 % (3.8-10.2); NEUT % 67.3 % (42.8-82.8); PLATELET COUNT 253 K/MM3 (134-434); RBC 4.07 M/mm3 (3.60-5.2); RDW 14.7 % (11.6-15.6); WHITE BLOOD COUNT 7.9 K/mm3 (4.0-10.0)
[2017-11-24 08:16] LABS: ALBUMIN 2.5 g/dl (3.4-5.0); ANION GAP 6 MMOL/L (8-16); BLOOD UREA NITROGEN 17 mg/dL (7-18); CALCIUM 8.4 mg/dL (8.5-10.1); CHLORIDE 105 mmol/L (98-107); CO2 29 mmol/L (21-32); GLUCOSE,RANDOM 76 mg/dL (74-106); MAGNESIUM 2.1 mg/dL (1.8-2.4); POTASSIUM 4.2 mmol/L (3.5-5.1); SODIUM 140 mmol/L (136-145)
[2017-11-24 08:19] LABS: ALK PHOS 59 U/L (45-117); BILIRUBIN,TOTAL 0.3 mg/dL (0.2-1.0); CREATININE 0.4 mg/dL (0.55-1.02); SGOT/AST 11 U/L (15-37); SGPT/ALT 10 U/L (12-78); TOT PROT 5.4 g/dl (6.4-8.2)
[2017-11-24] MEDS ORDERED: PT OWN MED DRAWER 7, Y5N ONE ×2 (09:46→09:50)
[2017-11-24] MEDS ORDERED: ERTAPENEM SODIUM 1 GM in SODIUM CHLORIDE 50 ML IVPB SCH (10:00)
[2017-11-24] MEDS ORDERED: PATIENT'S OWN MEDICATION (NON-FORMULARY) (Mirabegron [Myrbetriq] 50 MG) PO SCH (10:00)
[2017-11-24] MEDS: LISINOPRIL 10 MG TABLET (FP) PO SCH (10:04)
[2017-11-24] MEDS: MULTIVITAMINS (DAILY MVI) TABLET (FP) PO SCH (10:04)
[2017-11-24] MEDS: OXYBUTYNIN CHLORIDE 5 MG TABLET PO SCH ×2 (10:04→21:30)
[2017-11-24] MEDS: amLODIPine BESYLATE 5 MG TABLET (FP) PO SCH (10:04)
[2017-11-24] MEDS: ENOXAPARIN NA (PORCINE) 40 MG/0.4 ML DISP.SYRIN SQ SCH (10:05)
[2017-11-24] MEDS: DULoxetine HCL 30 MG CAPSULE.DR (FP) PO SCH (10:05)
[2017-11-24] MEDS: LACTULOSE 20 GM/30 ML UDC (FOR ORAL USE ONLY) PO SCH ×2 (10:05→10:10)
[2017-11-24] MEDS: POLYETHYLENE GLYCOL 3350 255 GM BTL PO SCH (10:06)
[2017-11-24] MEDS: BUDESONIDE/FORMETEROL FUMARATE 160/4.5 mcg INHALER IH SCH ×2 (14:06→21:30)
--- NOTE | 2017-11-24 17:57 | PN ---
Physical Exam: SUBJECTIVE: Patient seen and examined oob to chair. Eating lunch. No complaints. OBJECTIVE: Vital Signs Period Temp Pulse Resp BP Sys/Richardson Pulse Ox Last 24 Hr 97.8 F-98.4 F 68-86 18-20 107-162/61-70 97 GENERAL: The patient is awake, alert, and fully oriented, in no acute distress. LUNGS: Breath sounds CTA HEART: Regular rate and rhythm, S1, S2 ABDOMEN: Soft, nontender, nondistended EXTREMITIES: 2+ pulses, warm, well-perfused, no edema. NEUROLOGICAL: Cranial nerves II through XII grossly intact. Normal speech. Laboratory Results - last 24 hr 11/24/17 11/24/17 06:20 06:20 WBC 7.9 RBC 4.07 Hgb 11.7 Hct 35.3 MCV 86.6 MCH 28.8 MCHC 33.2 RDW 14.7 Plt Count 253 MPV 9.2 Absolute Neuts (auto) 5.3 Neutrophils % 67.3 Lymphocytes % 17.3 Monocytes % 10.6 H Eosinophils % 3.9 Basophils % 0.9 Nucleated RBC % 0 Sodium 140 Potassium 4.2 Chloride 105 Carbon Dioxide 29 Anion Gap 6 L BUN 17 Creatinine 0.4 L Creat Clearance w eGFR > 60 Random Glucose 76 Calcium 8.4 L Magnesium 2.1 Total Bilirubin 0.3 AST 11 L ALT 10 L Alkaline Phosphatase 59 Total Protein 5.4 L Albumin 2.5 L Active Medications Generic Name Dose Route Start Last Admin Trade Name Freq PRN Reason Stop Dose Admin Amlodipine Besylate 5 mg 11/24/17 10:00 11/24/17 10:04 Norvasc - PO 5 mg DAILY YNES Administration Artificial Tears 1 drop 11/23/17 17:38 Artificial Tears OU TID PRN DRY EYES Budesonide/Formoterol Fumarate 1 puff 11/23/17 22:00 11/24/17 14:06 Symbicort 160/4.5mcg - IH 1 puff BID YNES Administration Duloxetine HCl 60 mg 11/24/17 10:00 11/24/17 10:05 Cymbalta - PO 60 mg DAILY YNES Administration Enoxaparin Sodium 40 mg 11/24/17 10:00 11/24/17 10:05 Lovenox - SQ 40 mg DAILY YNES Administration Ertapenem 1 gm/ Sodium 50 mls @ 100 mls/hr 11/24/17 10:00 11/24/17 11:15 Chloride IVPB 100 mls/hr DAILY YNES Administration Lactulose 10 gm 11/24/17 10:00 11/24/17 10:10 Cephulac (Oral Use) PO Not Given DAILY YNES Levothyroxine Sodium 112 mcg/ 137 mcg 11/24/17 07:00 11/24/17 06:36 Levothyroxine Sodium 25 mcg PO 137 mcg DAILY@0700 YNES Administration Lisinopril 10 mg 11/24/17 10:00 11/24/17 10:04 Prinivil PO 10 mg DAILY YNES Administration Mirtazapine 7.5 mg 11/23/17 22:00 11/23/17 21:27 Remeron - PO 7.5 mg HS YNES Administration Montelukast Sodium 10 mg 11/23/17 22:00 11/23/17 21:29 Singulair - PO 10 mg HS YNES Administration Multivitamins/Minerals/Vitamin C 1 tab 11/24/17 10:00 11/24/17 10:04 Tab-A-Vit - PO 1 tab DAILY YNES Administration Non-Formulary Medication 50 mg 11/24/17 10:00 Mirabegron [Myrbetriq] PO DAILY YNES Oxybutynin Chloride 5 mg 11/23/17 22:00 11/24/17 10:04 Ditropan - PO 5 mg BID YNES Administration Polyethylene Glycol 17 gm 11/24/17 10:00 11/24/17 10:06 Miralax (For Bowel Prep) - PO 17 gm DAILY YNES Administration Polymyxin/Trimethoprim Sulfate 1 drop 11/23/17 18:00 11/24/17 17:29 Polytrim Opthalmic Solution - OU 1 drop Q4HWA YNES Administration ASSESSMENT/PLAN: 87 year-old female with a PMH significant for HTN, asthma/COPD s/p right lung resection, hypothyroidism s/p thyroidectomy, recurrent UTIs/overactive bladder, bilateral hip replacements, and depression. Admitted for UTI. UTI --afebrile, leukocytosis resolved, urine culture negative, stop meropenem today and observe --three previous UTIs this year: Klebsiella (04/2017), E.coli ESBL (05/2017) , and Klebsiella (08/2017) Overactive bladder --continue oxybutinin, mirabegron Hypertension --BP stable --continue lisinopril, amlodipine Asthma/COPD --continue Symbicort, Singulair Hypothyroidism --continue levothyroxine Depression --continue duloxetine, mirtazapine Hypomagnesemia --repleted again today FEN Fluids: PO intake adequate Electrolytes: replete as indicated Nutrition: soft, low sodium DVT prophylaxis: lovenox, oob, ambulation Physical therapy Dispo: continues to require inpatient care. Full code. Visit type - Emergency Visit Emergency Visit: Yes ED Registration Date: 11/21/17 Care time: The patient presented to the Emergency Department on the above date and was hospitalized for further evaluation of their emergent condition. - New Patient This patient is new to me today: No - Critical Care Critical Care patient: No
[2017-11-24] MEDS: MIRTAZAPINE 15 MG TABLET (FP) PO SCH (21:30)
[2017-11-24] MEDS: MONTELUKAST NA 10 MG TABLET PO SCH (21:30)
[2017-11-25] MEDS ORDERED: LEVOTHYROXINE NA 112 MCG TABLET (FP) ONE (06:02)
[2017-11-25] MEDS ORDERED: LEVOTHYROXINE NA 25 MCG TABLET (FP) ONE (06:02)
[2017-11-25] MEDS: LEVOTHYROXINE 112 MCG, LEVOTHYROXINE 25 MCG PO SCH (06:32)
[2017-11-25] MEDS: POLYMYXIN B SULFATE/TMP 10 ML OPHTHALMIC SOLUTION OU SCH ×6 (06:32→21:47)
[2017-11-25 08:10] LABS: BASO % 0.9 % (0-2.0); EOS % 6.3 % (0-4.5); HEMATOCRIT 37.3 % (32.4-45.2); HEMOGLOBIN 12.4 GM/dL (10.7-15.3); LYMPH % 23.9 % (8-40); MCH 28.6 pg (25.7-33.7); MCHC 33.2 g/dl (32.0-36.0); MEAN CELL VOLUME 86.4 fl (80-96); MEAN PLT VOLUME 9.3 fl (7.5-11.1); MONO % 11.2 % (3.8-10.2); NEUT % 57.7 % (42.8-82.8); PLATELET COUNT 269 K/MM3 (134-434); RBC 4.31 M/mm3 (3.60-5.2); RDW 14.6 % (11.6-15.6); WHITE BLOOD COUNT 7.2 K/mm3 (4.0-10.0)
[2017-11-25 09:00] LABS: CHLORIDE 102 mmol/L (98-107); POTASSIUM 4.5 mmol/L (3.5-5.1); SODIUM 139 mmol/L (136-145)
[2017-11-25 09:23] LABS: ALBUMIN 2.7 g/dl (3.4-5.0); ALK PHOS 65 U/L (45-117); ANION GAP 8 MMOL/L (8-16); BILIRUBIN,TOTAL 0.3 mg/dL (0.2-1.0); BLOOD UREA NITROGEN 19 mg/dL (7-18); CALCIUM 8.4 mg/dL (8.5-10.1); CO2 29 mmol/L (21-32); CREATININE 0.6 mg/dL (0.55-1.02); GLUCOSE,RANDOM 75 mg/dL (74-106); MAGNESIUM 2.1 mg/dL (1.8-2.4); SGOT/AST 12 U/L (15-37); SGPT/ALT 12 U/L (12-78)
[2017-11-25] MEDS ORDERED: PT OWN MED DRAWER 7, Y5N ONE ×2 (10:33→10:55)
[2017-11-25] MEDS: MULTIVITAMINS (DAILY MVI) TABLET (FP) PO SCH (10:38)
[2017-11-25] MEDS: OXYBUTYNIN CHLORIDE 5 MG TABLET PO SCH ×2 (10:38→21:46)
[2017-11-25] MEDS: amLODIPine BESYLATE 5 MG TABLET (FP) PO SCH (10:38)
[2017-11-25] MEDS: LISINOPRIL 10 MG TABLET (FP) PO SCH (10:38)
[2017-11-25] MEDS: BUDESONIDE/FORMETEROL FUMARATE 160/4.5 mcg INHALER IH SCH ×2 (10:39→21:50)
[2017-11-25] MEDS: DULoxetine HCL 30 MG CAPSULE.DR (FP) PO SCH (10:39)
[2017-11-25] MEDS: LACTULOSE 20 GM/30 ML UDC (FOR ORAL USE ONLY) PO SCH ×2 (10:39→10:41)
[2017-11-25] MEDS: ENOXAPARIN NA (PORCINE) 40 MG/0.4 ML DISP.SYRIN SQ SCH (10:42)
[2017-11-25] MEDS: POLYETHYLENE GLYCOL 3350 255 GM BTL PO SCH (10:42)
--- NOTE | 2017-11-25 13:17 | DS ---
Physical Exam: SUBJECTIVE: Patient seen and examined OBJECTIVE: Vital Signs Period Temp Pulse Resp BP Sys/Richardson Pulse Ox Last 24 Hr 97.4 F-98.4 F 75-86 18-20 107-155/61-70 PHYSICAL EXAM GENERAL: The patient is awake, alert, and fully oriented, in no acute distress. LUNGS: Breath sounds CTA HEART: Regular rate and rhythm, S1, S2 ABDOMEN: Soft, nontender, nondistended EXTREMITIES: 2+ pulses, warm, well-perfused, no edema. NEUROLOGICAL: Cranial nerves II through XII grossly intact. Normal speech. LABS Laboratory Results - last 24 hr 11/25/17 11/25/17 06:50 06:56 WBC 7.2 RBC 4.31 Hgb 12.4 Hct 37.3 MCV 86.4 MCH 28.6 MCHC 33.2 RDW 14.6 Plt Count 269 MPV 9.3 Absolute Neuts (auto) 4.2 Neutrophils % 57.7 Lymphocytes % 23.9 D Monocytes % 11.2 H Eosinophils % 6.3 H Basophils % 0.9 Nucleated RBC % 0 Sodium 139 Potassium 4.5 Chloride 102 Carbon Dioxide 29 Anion Gap 8 BUN 19 H Creatinine 0.6 Creat Clearance w eGFR > 60 Random Glucose 75 Calcium 8.4 L Magnesium 2.1 Total Bilirubin 0.3 AST 12 L ALT 12 Alkaline Phosphatase 65 Total Protein 6.0 L Albumin 2.7 L HOSPITAL COURSE: Date of Admission:11/21/17 Date of Discharge: 11/25/17 Pre hospital course Patient is an 87 year-old female with a significant past medical history of R lung resection, ESBL producing E.Coli UTI, HTN, bilateral hip replacements, hypothyroidism, depression, and overactive bladder, who presents to the ED complaining of weakness that has been constant since yesterday. She states that she has no energy to move and does not feel like doing anything. She states that she cannot eat anything because she has no teeth and has lost weight. The patient denies chest pain, shortness of breath, headache and dizziness. Denies fever, chills, nausea, vomiting, diarrhea or constipation. Denies dysuria, frequency, urgency and hematuria. She is allergic to sulfa and penicillin. Has not produced any urine yet for analysis and got Meropenem in the ER. Subsequent hospital course by problem list UTI --on admission afebrile, +leukocytosis, +pyuria --three previous UTIs this year: Klebsiella (04/2017), E.coli ESBL (05/2017) , and Klebsiella (08/2017) --treated empirically with meropenem/ertapenem from 11/22-11/24; culture was negative and antibiotics were stopped on 11/24 --leukocytosis resolved, remained afebrile throughout hospital stay Overactive bladder --continued oxybutinin, mirabegron Hypertension --BP stable --continued lisinopril, amlodipine Asthma/COPD --continued Symbicort, Singulair Hypothyroidism --continued levothyroxine Depression --continued duloxetine, mirtazapine Hypomagnesemia --repleted Minutes to complete discharge: 35 Discharge Summary Reason For Visit: URINARY TRACT INFECTION,WEIGHT LOSS,WEAKNESS, Current Active Problems UTI (urinary tract infection) (Acute) Weakness generalized (Acute) Weight loss (Chronic) Condition: Guarded - Instructions Referrals: Jesus White MD [Primary Care Provider] - Disposition: HOME - Home Medications Comprehensive Discharge Medication List: Ambulatory Orders Duloxetine HCl [Cymbalta] 60 mg PO DAILY 04/30/17 Mirabegron [Myrbetriq] 50 mg PO DAILY 04/30/17 Mirtazapine [Remeron -] 7.5 mg PO HS 04/30/17 Montelukast Sodium [Singulair] 10 mg PO HS 04/30/17 Amlodipine Besylate [Norvasc -] 5 mg PO DAILY #30 tablet 05/04/17 Budesonide/Formeterol Fumarate [SYMBICORT 160/4.5mcg -] 1 inh IH BID #1 inhaler 05/04/17 Levothyroxine Sodium [Synthroid] 137 mcg PO DAILY #7 tablet 05/04/17 Lisinopril 10 mg PO DAILY #30 tablet 05/04/17 Oxybutynin Chloride 5 mg PO BID #60 tablet 05/04/17 Polyethylene Glycol 3350 [Laxaclear] 1,700 gm PO DAILY 06/15/17 Acetaminophen [Mapap] 650 mg PO Q6H PRN 09/09/17 Lactulose 10 gm PO DAILY 11/21/17 Polyvinyl Alcohol [Artificial Tears] 1 drop OU TID PRN 11/21/17 This patient is new to me today: No Emergency Visit: Yes ED Registration Date: 11/21/17 Care time: The patient presented to the Emergency Department on the above date and was hospitalized for further evaluation of their emergent condition. Critical Care patient: No - Discharge Referral Referred to [facility] No
[2017-11-25] MEDS: MONTELUKAST NA 10 MG TABLET PO SCH (21:46)
[2017-11-25] MEDS: MIRTAZAPINE 15 MG TABLET (FP) PO SCH (21:46)
[2017-11-26] MEDS: POLYMYXIN B SULFATE/TMP 10 ML OPHTHALMIC SOLUTION OU SCH ×5 (05:15→21:29)
[2017-11-26] MEDS ORDERED: LEVOTHYROXINE NA 112 MCG TABLET (FP) ONE (06:03)
[2017-11-26] MEDS ORDERED: LEVOTHYROXINE NA 25 MCG TABLET (FP) ONE (06:03)
[2017-11-26] MEDS: LEVOTHYROXINE 112 MCG, LEVOTHYROXINE 25 MCG PO SCH (06:04)
[2017-11-26] MEDS ORDERED: PT OWN MED DRAWER 7, Y5N ONE ×4 (09:40→18:49)
[2017-11-26] MEDS: LISINOPRIL 10 MG TABLET (FP) PO SCH (09:50)
[2017-11-26] MEDS: MULTIVITAMINS (DAILY MVI) TABLET (FP) PO SCH (09:50)
[2017-11-26] MEDS: LACTULOSE 20 GM/30 ML UDC (FOR ORAL USE ONLY) PO SCH (09:51)
[2017-11-26] MEDS: amLODIPine BESYLATE 5 MG TABLET (FP) PO SCH (09:51)
[2017-11-26] MEDS: POLYETHYLENE GLYCOL 3350 255 GM BTL PO SCH (09:51)
[2017-11-26] MEDS: ENOXAPARIN NA (PORCINE) 40 MG/0.4 ML DISP.SYRIN SQ SCH (09:51)
[2017-11-26] MEDS: DULoxetine HCL 30 MG CAPSULE.DR (FP) PO SCH (09:51)
[2017-11-26] MEDS: BUDESONIDE/FORMETEROL FUMARATE 160/4.5 mcg INHALER IH SCH ×2 (09:55→21:32)
[2017-11-26] MEDS: OXYBUTYNIN CHLORIDE 5 MG TABLET PO SCH ×2 (11:21→21:29)
--- NOTE | 2017-11-26 16:20 | PN ---
Physical Exam: SUBJECTIVE: Patient seen and examined oob to chair. OBJECTIVE: Vital Signs Period Temp Pulse Resp BP Sys/Richardson Pulse Ox Last 24 Hr 97.6 F-98.2 F 82-95 18-20 101-151/64-75 97-97 GENERAL: The patient is awake, alert, in no acute distress. LUNGS: Breath sounds CTA HEART: Regular rate and rhythm, S1, S2 ABDOMEN: Soft, nontender, nondistended EXTREMITIES: 2+ pulses, warm, well-perfused, no edema. NEUROLOGICAL: Cranial nerves II through XII grossly intact. Normal speech. Active Medications Generic Name Dose Route Start Last Admin Trade Name Freq PRN Reason Stop Dose Admin Amlodipine Besylate 5 mg 11/24/17 10:00 11/26/17 09:51 Norvasc - PO 5 mg DAILY YNES Administration Artificial Tears 1 drop 11/23/17 17:38 Artificial Tears OU TID PRN DRY EYES Budesonide/Formoterol Fumarate 1 puff 11/23/17 22:00 11/26/17 09:55 Symbicort 160/4.5mcg - IH 1 puff BID YNES Administration Duloxetine HCl 60 mg 11/24/17 10:00 11/26/17 09:51 Cymbalta - PO 60 mg DAILY YNES Administration Enoxaparin Sodium 40 mg 11/24/17 10:00 11/26/17 09:51 Lovenox - SQ 40 mg DAILY YNES Administration Lactulose 10 gm 11/24/17 10:00 11/26/17 09:51 Cephulac (Oral Use) PO Not Given DAILY [facility]ENS Levothyroxine Sodium 112 mcg/ 137 mcg 11/24/17 07:00 11/26/17 06:04 Levothyroxine Sodium 25 mcg PO 137 mcg DAILY@0700 YNES Administration Lisinopril 10 mg 11/24/17 10:00 11/26/17 09:50 Prinivil PO 10 mg DAILY YNES Administration Mirtazapine 7.5 mg 11/23/17 22:00 11/25/17 21:46 Remeron - PO 7.5 mg HS YNES Administration Montelukast Sodium 10 mg 11/23/17 22:00 11/25/17 21:46 Singulair - PO 10 mg HS YNES Administration Multivitamins/Minerals/Vitamin C 1 tab 11/24/17 10:00 11/26/17 09:50 Tab-A-Vit - PO 1 tab DAILY YNES Administration Non-Formulary Medication 50 mg 11/24/17 10:00 Mirabegron [Myrbetriq] PO DAILY YNES Oxybutynin Chloride 5 mg 11/23/17 22:00 11/26/17 11:21 Ditropan - PO 5 mg BID YNES Administration Polyethylene Glycol 17 gm 11/24/17 10:00 11/26/17 09:51 Miralax (For Bowel Prep) - PO Not Given DAILY YNES Polymyxin/Trimethoprim Sulfate 1 drop 11/23/17 18:00 11/26/17 15:19 Polytrim Opthalmic Solution - OU 1 drop Q4HWA YNES Administration ASSESSMENT/PLAN: 87 year-old female with a PMH significant for HTN, asthma/COPD s/p right lung resection, hypothyroidism s/p thyroidectomy, recurrent UTIs/overactive bladder, bilateral hip replacements, and depression. Admitted for UTI. UTI --on admission afebrile, +leukocytosis, +pyuria --three previous UTIs this year: Klebsiella (04/2017), E.coli ESBL (05/2017) , and Klebsiella (08/2017) --treated empirically with meropenem/ertapenem from 11/22-11/24; culture was negative and antibiotics were stopped on 11/24 --leukocytosis resolved and remains afebrile Overactive bladder --continue oxybutinin, mirabegron Hypertension --BP stable --continue lisinopril, amlodipine Asthma/COPD --continue Symbicort, Singulair Hypothyroidism --continue levothyroxine Depression --continue duloxetine, mirtazapine FEN Fluids: PO intake adequate Electrolytes: replete as indicated Nutrition: soft, low sodium DVT prophylaxis: lovenox, oob, ambulation Physical therapy Dispo: was scheduled for discharge but family has changed SNF preferences. Discussed with JEAN Mott. Full code. Visit type - Emergency Visit Emergency Visit: Yes ED Registration Date: 11/21/17 Care time: The patient presented to the Emergency Department on the above date and was hospitalized for further evaluation of their emergent condition. - New Patient This patient is new to me today: No - Critical Care Critical Care patient: No
[2017-11-26] MEDS: MIRTAZAPINE 15 MG TABLET (FP) PO SCH (21:28)
[2017-11-26] MEDS: MONTELUKAST NA 10 MG TABLET PO SCH (21:29)
[2017-11-27] MEDS ORDERED: LEVOTHYROXINE NA 25 MCG TABLET (FP) ONE (05:07)
[2017-11-27] MEDS ORDERED: LEVOTHYROXINE NA 112 MCG TABLET (FP) ONE (05:07)
[2017-11-27] MEDS: POLYMYXIN B SULFATE/TMP 10 ML OPHTHALMIC SOLUTION OU SCH ×3 (06:11→14:23)
[2017-11-27] MEDS: LEVOTHYROXINE 112 MCG, LEVOTHYROXINE 25 MCG PO SCH (06:12)
--- NOTE | 2017-11-27 08:41 | PN ---
Physical Exam: SUBJECTIVE: Patient seen and examined at the bedside. OBJECTIVE: for discharge noted CT chest results, patient to follow up with pulm outpatient. Vital Signs Period Temp Pulse Resp BP Sys/Richardson Pulse Ox Last 24 Hr 98.2 F-98.6 F 82-95 18-20 109-135/58-69 97-97 GENERAL: The patient is awake, alert, and fully oriented, in no acute distress. HEAD: Normal with no signs of trauma. EYES: PERRL, extraocular movements intact, sclera anicteric, conjunctiva clear. No ptosis. ENT: Ears normal, nares patent, oropharynx clear without exudates, moist mucous membranes. NECK: Trachea midline, full range of motion, supple. LUNGS: Breath sounds equal, clear to auscultation bilaterally, no wheezes ABDOMEN: Soft, nontender, nondistended, normoactive bowel sounds, no guarding, no rebound, no hepatosplenomegaly, no masses. EXTREMITIES: no edema. NEUROLOGICAL: Normal speech, gait not observed. PSYCH: Normal mood, normal affect. SKIN: Warm, dry, normal turgor, no rashes or lesions noted Active Medications Generic Name Dose Route Start Last Admin Trade Name Freq PRN Reason Stop Dose Admin Amlodipine Besylate 5 mg 11/24/17 10:00 11/26/17 09:51 Norvasc - PO 5 mg DAILY YNES Administration Artificial Tears 1 drop 11/23/17 17:38 Artificial Tears OU TID PRN DRY EYES Budesonide/Formoterol Fumarate 1 puff 11/23/17 22:00 11/26/17 21:32 Symbicort 160/4.5mcg - IH 1 puff BID YNES Administration Duloxetine HCl 60 mg 11/24/17 10:00 11/26/17 09:51 Cymbalta - PO 60 mg DAILY YNES Administration Enoxaparin Sodium 40 mg 11/24/17 10:00 11/26/17 09:51 Lovenox - SQ 40 mg DAILY YNES Administration Lactulose 10 gm 11/24/17 10:00 11/26/17 09:51 Cephulac (Oral Use) PO Not Given DAILY YNES Levothyroxine Sodium 112 mcg/ 137 mcg 11/24/17 07:00 11/27/17 06:12 Levothyroxine Sodium 25 mcg PO 137 mcg DAILY@0700 YNES Administration Lisinopril 10 mg 11/24/17 10:00 11/26/17 09:50 Prinivil PO 10 mg DAILY YNES Administration Mirtazapine 7.5 mg 11/23/17 22:00 11/26/17 21:28 Remeron - PO 7.5 mg HS YNES Administration Montelukast Sodium 10 mg 11/23/17 22:00 11/26/17 21:29 Singulair - PO 10 mg HS YNES Administration Multivitamins/Minerals/Vitamin C 1 tab 11/24/17 10:00 11/26/17 09:50 Tab-A-Vit - PO 1 tab DAILY YNES Administration Non-Formulary Medication 50 mg 11/24/17 10:00 Mirabegron [Myrbetriq] PO DAILY YNES Oxybutynin Chloride 5 mg 11/23/17 22:00 11/26/17 21:29 Ditropan - PO 5 mg BID YNES Administration Polyethylene Glycol 17 gm 11/24/17 10:00 11/26/17 09:51 Miralax (For Bowel Prep) - PO Not Given DAILY YNES Polymyxin/Trimethoprim Sulfate 1 drop 11/23/17 18:00 11/27/17 06:11 Polytrim Opthalmic Solution - OU 1 drop Q4HWA YNES Administration ASSESSMENT/PLAN: patient is an 87 year old female with a significant past medical history of asthma/COPD s/p right lung resection, hypothyroidism s/p thyroidectomy, recurrent UTIs/overactive bladder, bilateral hip replacements, and depression. Admitted for UTI. She presents to the ED on 11/21/2017 for UTI and weakness. She was been treated with meropenem/ertapenem. Antibiotics discontinued on 11/24 after her cultures were negative. Patient had a CT chest done today which shows lung nodules. Pulmonary was consulted and they recommend that patient have a PET scan outpatient to follow up on Chest CT findings. Patient to follow up within 2 weeks of discharge. full code. Visit type - Emergency Visit Emergency Visit: Yes ED Registration Date: 11/21/17 Care time: The patient presented to the Emergency Department on the above date and was hospitalized for further evaluation of their emergent condition. - New Patient This patient is new to me today: Yes Date on this admission: 11/27/17 - Critical Care Critical Care patient: No - Discharge Referral Referred to [facility] No
[2017-11-27] MEDS: POLYETHYLENE GLYCOL 3350 255 GM BTL PO SCH (10:26)
[2017-11-27] MEDS: LACTULOSE 20 GM/30 ML UDC (FOR ORAL USE ONLY) PO SCH (10:26)
[2017-11-27] MEDS ORDERED: PT OWN MED DRAWER 7, Y5N ONE (10:30)
[2017-11-27] MEDS: amLODIPine BESYLATE 5 MG TABLET (FP) PO SCH (10:38)
[2017-11-27] MEDS: LISINOPRIL 10 MG TABLET (FP) PO SCH (10:42)
[2017-11-27] MEDS: BUDESONIDE/FORMETEROL FUMARATE 160/4.5 mcg INHALER IH SCH (10:43)
[2017-11-27] MEDS: OXYBUTYNIN CHLORIDE 5 MG TABLET PO SCH (10:43)
[2017-11-27] MEDS: DULoxetine HCL 30 MG CAPSULE.DR (FP) PO SCH (10:43)
[2017-11-27] MEDS: ENOXAPARIN NA (PORCINE) 40 MG/0.4 ML DISP.SYRIN SQ SCH (10:43)
[2017-11-27] MEDS: MULTIVITAMINS (DAILY MVI) TABLET (FP) PO SCH (10:43)
--- NOTE | 2017-11-27 13:18 | CON.PULM ---
Consult Consult Specialty:: PULMONARY Referred by:: RAFAT Byrne Reason for Consultation:: lung nodules - History of Present Illness Chief Complaint: generalized weakness History of Present Illness: 87yo female with h/o HTN, hypothyroidism, asthma, depression who was admitted with generalized weakness. Found to have a UTI, treated with IV antibiotics. CT chest was done after CXR showed a pleural density. CT chest showed an enlarging right sided pleural density from Apr 2017 as well as KEVIN scattered nodules. She denies any shortness of breath, cough or chest pain. No fevers, chills or sweats but reports a 30lb weight loss in the last few months which she attributes to not having teeth. She is a former smoker, started in her 20s, smoked on average 1 PPD until she quit 10 years ago. Reports having a partial right lung resection about a year ago in [place] but does not know why. Her father from lung cancer and he was a heavy smoker. - History Source History Provided By: Patient, Medical Record Limitations to Obtaining History: No Limitations - Past Medical History Cardio/Vascular: Yes: HTN Pulmonary: Yes: Cancer, COPD Endocrine: Yes: Hypothyroidism - Alcohol/Substance Use Hx Alcohol Use: No - Smoking History Smoking history: Former smoker Have you smoked in the past 12 months: No If you are a former smoker, when did you quit?: 5 yrs ago Home Medications - Allergies Allergies/Adverse Reactions: Allergies Allergy/AdvReac Type Severity Reaction Status Date / Time Sulfa (Sulfonamide Allergy Verified 11/21/17 17:06 Antibiotics) Penicillins AdvReac Verified 11/21/17 17:06 - Home Medications Home Medications: Ambulatory Orders Duloxetine HCl [Cymbalta] 60 mg PO DAILY 04/30/17 Mirabegron [Myrbetriq] 50 mg PO DAILY 04/30/17 Mirtazapine [Remeron -] 7.5 mg PO HS 04/30/17 Montelukast Sodium [Singulair] 10 mg PO HS 04/30/17 Amlodipine Besylate [Norvasc -] 5 mg PO DAILY #30 tablet 05/04/17 Budesonide/Formeterol Fumarate [SYMBICORT 160/4.5mcg -] 1 inh IH BID #1 inhaler 05/04/17 Levothyroxine Sodium [Synthroid] 137 mcg PO DAILY #7 tablet 05/04/17 Lisinopril 10 mg PO DAILY #30 tablet 05/04/17 Oxybutynin Chloride 5 mg PO BID #60 tablet 05/04/17 Polyethylene Glycol 3350 [Laxaclear] 17 gm PO DAILY 06/15/17 Lactulose 10 gm PO DAILY 11/21/17 Polyvinyl Alcohol [Artificial Tears] 1 drop OU TID PRN 11/21/17 Review of Systems - Review of Systems Constitutional: reports: Unintentional Wgt. Loss, Weakness. denies: Chills, Fever, Night Sweats Eyes: denies: Recent Change in Vision HENT: denies: Nasal Congestion, Throat Pain Neck: denies: Stiffness, Tenderness Cardiovascular: denies: Chest Pain, Palpitations, Shortness of Breath Respiratory: denies: Cough, Hemoptysis, SOB, Wheezing Gastrointestinal: denies: Abdominal Pain, Nausea, Vomiting Genitourinary: denies: Dysuria Neurological: denies: Dizziness, Headache Endocrine: reports: Unexplained Weight Loss Physical Exam Vital Sings: Vital Signs Temperature 98.3 F 11/27/17 06:44 Pulse Rate 82 11/27/17 06:44 Respiratory Rate 20 11/27/17 06:44 Blood Pressure 135/69 11/27/17 06:44 O2 Sat by Pulse Oximetry (%) 97 11/26/17 21:00 Constitutional: Yes: Cachectic, Thin Eyes: Yes: Conjunctiva Clear, EOM Intact HENT: Yes: Atraumatic, Normocephalic Neck: Yes: Supple, Trachea Midline Cardiovascular: Yes: Regular Rate and Rhythm Respiratory: Yes: Diminished (distant breath sounds) ...Clubbing: No Gastrointestinal: Yes: Normal Bowel Sounds, Soft. No: Tenderness Edema: No Neurological: Yes: Alert, Oriented Labs: CBC, BMP 11/25/17 06:56 11/25/17 06:50 Imaging - Results Cat Scan: Report Reviewed, Image Reviewed (right pleural density with calcifications, KEVIN nodules) Problem List - Problems (1) UTI (urinary tract infection) Code(s): N39.0 - URINARY TRACT INFECTION, SITE NOT SPECIFIED Qualifiers: Urinary tract infection type: site unspecified Hematuria presence: without hematuria Qualified Code(s): N39.0 - Urinary tract infection, site not specified (2) HTN (hypertension) Code(s): I10 - ESSENTIAL (PRIMARY) HYPERTENSION (3) Hypothyroid Code(s): E03.9 - HYPOTHYROIDISM, UNSPECIFIED (4) Lung mass Code(s): R91.8 - OTHER NONSPECIFIC ABNORMAL FINDING OF LUNG FIELD Assessment/Plan Lung Nodules UTI HTN Hypothyroidism - will need outpt PET scan to determine avidity of nodules - outpt PFTs - obtain records from her prior lung surgery - left card with patient for outpt f/u Thank you for this consult Vin Laws MD
[2017-11-27 14:52] VITALS: BP 108/57; PULSE 88; TEMP 98.2
== END 2017-11-27 17:16 | DRG 690 ==
LOC: JER 16:47 → JERBED 21:18 → J2W 11-22 07:54 → J4W 11-22 20:19 → J8W 11-23 14:11
PROVIDERS: ADMIT Internal Medicine; ATTEND Nurse Practitioner Family
DX: N39.0 Urinary tract infection, site not specified (principal); R64 Cachexia; Z68.1 Body mass index [BMI] 19.9 or less, adult; E03.9 Hypothyroidism, unspecified; I10 Essential (primary) hypertension; R53.1 Weakness; R91.8 Other nonspecific abnormal finding of lung field; D72.829 Elevated white blood cell count, unspecified; J45.909 Unspecified asthma, uncomplicated; J44.9 Chronic obstructive pulmonary disease, unspecified; F32.9 Major depressive disorder, single episode, unspecified; N32.81 Overactive bladder; E83.42 Hypomagnesemia
CPT/HCPCS: 36415; 70450-TC; 71045-TC-FY; 71250-TC; 80048; 80053; 81003; 81015; 82550; 83605; 83735; 84100; 84436; 84443; 84484; 85025; 85610; 87040; 87086; 93005; 93010; 97116-GP; 97161-GP; 99283-25; J7030